=== PATIENT | female | born 1960 | race Caucasian/White ===

== ENCOUNTER 2024-01-21 09:00 | Emergency (ER) | payer MEDICARE, SELFPAY ==
[2024-01-21] VITALS (11 sets, daily range): BP systolic 115–157; BP diastolic 74–89; PULSE 95–112; RESP 15–28; TEMP 36.6; O2SAT 95–99
--- NOTE | ~2024-01-21 | XR_ITS ---
EXAMINATION: XR chest 2V 01/21/2024 10:05 INDICATION: Shortness of breath PROCEDURE: 2 view chest COMPARISON: No prior studies for comparison. FINDINGS: The lungs are clear. The cardiomediastinal silhouette is within normal limits. There are no pleural effusions. There is no pneumothorax suspected. IMPRESSION: 1: NO ACUTE CARDIOPULMONARY DISEASE. Reviewed, dictated and finalized at location B.
--- NOTE | ~2024-01-21 | CT_ITS ---
Clinical Indication: Shortness of breath, abdominal pain CT Scan of the Chest, Abdomen, and Pelvis with Contrast: Technique: Contiguous sections were acquired throughout the chest, abdomen, and pelvis after intraven ous administration of 100 cc of Omnipaque 350. Dose reduction technique was used on this scan by evangelista marks automated exposure control and iterative reconstruction technique. The dose-length product (DL P) was 900.68 mGy-cm. Findings: There is no evidence of any significant mediastinal, hilar or axillary lymphadenopathy. The mediastin al soft tissues appear normal. No pulmonary embolus. No aortic aneurysm or dissection. There is no evidence of pleural or pericardial effusion. The lungs are clear. No pulmonary nodules or infiltrates are noted. There is a heterogeneous enhancing lobulated mass centered in the relative sae hepatis region, exte nding from the superior pancreatic body into the left hepatic lobe. Lesion overall measures approxima tely 7.3 x 6.2 x 7.7 cm in extent. There is additional inferior extension posterior to the pancreatic head versus local adjacent enlarged lymph nodes. There is mild periportal edema. A simple right hepatic lobe cyst is present. Spleen is enlarged, ahmet uring 18.2 cm in length. Small bilateral nonobstructing renal stones are present. There are extra juan a al pelves bilaterally with relative enhancement of the urothelium of the pelvis. No bowel obstruction or bowel wall thickening. There is no evidence to suggest acute appendicitis. Possible urinary bladder wall thickening. There is apparent prominence of the endometrium. Small amou nt of abdominopelvic ascites present. Impression: Large mass centered the relative sae hepatis region, as detailed above, extending from the pancreat ic body to the left hepatic lobe. This is compatible with a neoplastic lesion, however the precise or igin is somewhat unclear with the lesion probably involving both the pancreas and left hepatic lobe. Tissue sampling advised in order to better establish a histologic diagnosis. Probable local metastatic lymph nodes along the inferior aspect of the mass, posterior to the pancrea tic head. Prominent endometrium given patient age. Recommend pelvic ultrasound to better assess for endometrial thickening. Splenomegaly. Small amount of abdominopelvic ascites. Possible urinary bladder wall thickening and relative enhancement of the urothelium of bilateral extr a renal pelves. Correlate for UTI. Reviewed, dictated and finalized at location M. Impression: Large mass centered the relative sae hepatis region, as detailed above, exten ding from the pancreatic body to the left hepatic lobe. This is compatible with a neoplastic lesion, however the precise origin is somewhat unclear with the l esion probably involving both the pancreas and left hepatic lobe. Tissue sampli ng advised in order to better establish a histologic diagnosis. Probable local metastatic lymph nodes along the inferior aspect of the mass, po sterior to the pancreatic head. Prominent endometrium given patient age. Recommend pelvic ultrasound to better assess for endometrial thickening. Splenomegaly. Small amount of abdominopelvic ascites. Possible urinary bladder wall thickening and relative enhancement of the urothe lium of bilateral extra renal pelves. Correlate for UTI.
--- NOTE | 2024-01-21 09:12 | ECG_ITS ---
SEE SCANNED COPY FOR CONFIRMED REPORT MTDD
--- NOTE | 2024-01-21 09:12 | ED.SOB ---
HPI - SOB/Dyspnea General Chief Complaint: Shortness of Breath/Dyspnea <Ryder Muñoz APRN - Last Filed: 01/21/24 11:29> Stated Complaint: short of breath <Ryder Muñoz APRN - Last Filed: 01/21/24 11:29> Time Seen by Provider: 01/21/24 09:04 <Ryder Muñoz APRN - Last Filed: 01/21/24 11:29> Source: patient <Ryder Muñoz APRN - Last Filed: 01/21/24 11:29> Mode of arrival: ambulatory <Ryder Muñoz APRN - Last Filed: 01/21/24 11:29> Limitations: no limitations <Ryder Muñoz APRN - Last Filed: 01/21/24 11:29> History of Present Illness HPI Narrative: Cheyanne is a 64-year-old female patient presenting to the ER today with complaints of shortness of breath and abdominal bloating. She reports her symptoms started yesterday but were worse this morning. She denies any past medical history. She has not seen a medical provider for the last 4-5 years. Does not take any home medications. Feels anxious at this time. States she does have a productive cough at times bringing up some white phlegm. She denies smoking, vaping, marijuana use, or any recreational drug use. <Ryder Muñoz APRN - Last Filed: 01/21/24 11:29> Related Data Home Medications: Home Medications Medication Instructions Recorded Confirmed No Home Medications 01/21/24 01/21/24 <Ryder Muñoz APRN - Last Filed: 01/21/24 11:29> Allergies/Adverse Reactions: Allergies Allergy/AdvReac Type Severity Reaction Status Date / Time No Known Allergies Allergy Verified 01/21/24 09:39 <Ryder Muñoz APRN - Last Filed: 01/21/24 11:29> Review of Systems Review of Systems: Pertinent positives per HPI. Patient denies any fever, chills, rash, headache, visual changes, dizziness, cough, runny nose, sore throat, chest pain, palpitations, nausea, vomiting, diarrhea, constipation, or any urinary issues. <Ryder Muñoz APRN - Last Filed: 01/21/24 11:29> PMFSH Comments At the time of my signature, I reviewed and agree with the nursing past medical, surgical, social, and family history. There is no relevant family history pertinent to the patient complaint. <Ryder Muñoz APRN - Last Filed: 01/21/24 11:29> Exam Narrative: General: Well-developed, well nourished, anxious, mild increased respirations without retractions Head: Normocephalic, atraumatic. Cardio: Regular rate and rhythm, s1 and s2 normal, no murmur appreciated. Resp: Clear to auscultation bilaterally, no rhonchi, rales, wheezing or rubs. Abdomen: Soft, pliable, distended, bowel sounds present in all quadrants, generalized tenderness to palpation, no organomegly, no CVAT tenderness. <Ryder Muñoz APRN - Last Filed: 01/21/24 11:29> Course Course Emergency Course: Portions of this record may have been created with voice recognition software. <Ryder Muñoz APRN - Last Filed: 01/21/24 11:29> COURT DEPUTY/PA Physician Supervision This visit was performed by both a physician and an APC. I performed all aspects of the MDM as documented. <John Erwin MD - Last Filed: 01/21/24 18:20> Vital Signs Vital signs: Vital Signs Temperature 97.9 F 01/21/24 09:04 Pulse Rate 110 H 01/21/24 09:04 Respiratory Rate 28 H 01/21/24 09:04 Blood Pressure 157/89 H 01/21/24 09:04 Pulse Oximetry 99 01/21/24 09:04 Oxygen Delivery Room Air 01/21/24 09:04 Temperature 97.9 F 01/21/24 09:04 Pulse Rate 110 H 01/21/24 12:30 Respiratory Rate 20 01/21/24 12:30 Blood Pressure 118/88 01/21/24 12:30 Pulse Oximetry 97 01/21/24 12:30 Oxygen Delivery Room Air 01/21/24 09:05 Vital signs reviewed <Ryder Muñoz APRN - Last Filed: 05/03/24 11:29> Vital Signs Temperature 97.9 F 01/21/24 09:04 Pulse Rate 110 H 01/21/24 09:04 Respiratory Rate 28 H 01/21/24 09:04 Blood Pressure 157/89 H 01/21/24 09:04 Pulse Oximetry 99
[2024-01-21 09:29] LABS: Hematocrit 37.8 % (37.0-47.0); Hemoglobin 12.6 g/dL (12.0-15.0); Mean Corpuscular HGB Conc 33.3 g/dl (32-36); Mean Corpuscular Hemoglobin 28.8 pg (26-34); Mean Corpuscular Volume 86.5 fl (80-100); Mean Platelet Volume 9.5 fl (7.4-10.4); Platelet Count Result 324 k/mm3 (150-375); Red Blood Count 4.37 M/mm3 (4.2-5.4); Red Cell Distribution Width 14.5 % (11.5-14.5); White Blood Count 30.2 K/mm3 (4.5-10.0)
[2024-01-21 09:36] LABS: Band Neutrophils Percent 2 % (0-6); Lymphocytes Absolute Manual 1.81 K/mm3 (1.1-4.5); Monocytes Percent Manual 1 % (3-9); Neutrophils Absolute Manual 28.08 K/mm3 (1.7-7.2); Neutrophils Percent Manual 91 % (46-73); Total Cells Counted 100
[2024-01-21 09:37] LABS: Platelet Estimate Adequate (Adequate); Schistocytes None Seen
[2024-01-21] MEDS: LORazepam INJ (*CRX) 2 MG/ML VIAL 0.5 MG IV PUSH (09:38)
[2024-01-21 09:40] LABS: INR 1.3; Partial Thromboplastin Time 32.2 Seconds (22.3-36.8); Prothrombin Time 16.9 Seconds (11.1-14.7)
[2024-01-21 09:43] LABS: Alanine Aminotransferase 22 U/L (6-35); Albumin Level 3.8 g/dL (3.5-5.1); Alkaline Phosphatase 120 U/L (38-126); Anion Gap 12 mmol/L (4-12); Aspartate Amino Transferase 32 U/L (14-36); Bilirubin,Total 1.3 mg/dL (0.2-1.3); Blood Urea Nitrogen 8 mg/dL (7-17); Calcium 10.5 mg/dL (8.4-10.2); Carbon Dioxide 17 mmol/L (22-30); Chloride 105 mmol/L (98-107); Estimated CRCL calculation 87 ml/min; Estimated Glomerular Filt Rate > 60; Glucose 126 mg/dL (65-110); Potassium 3.2 mmol/L (3.4-5.0); Sodium 134 mmol/L (137-145)
[2024-01-21 09:51] LABS: NT Pro B Type Natriuretic Pept 563 pg/mL (19.9-100)
[2024-01-21 09:52] LABS: Estimated CRCL calculation 87 ml/min; Estimated Glomerular Filt Rate > 60
[2024-01-21 10:02] LABS: Troponin I < 0.012 ng/mL (0.000-0.034)
[2024-01-21 11:04] LABS: Appearance Urine Clear (Clear); Bilirubin Urine Negative (Negative); Blood Urine 1+ (Negative); Color Urine Yellow (Yellow); Glucose Urine UA Negative (Negative); Ketones Urine Trace mg/dL (Negative); Leukocyte Esterase Ur 1+ LEU/UL (Negative); Nitrate Urine Negative (Negative); Protein Urine 1+ mg/dL (Negative)
[2024-01-21 11:05] LABS: Specific Grav Ur 1.078 (1.001-1.035)
[2024-01-21 11:06] LABS: Add Urine Microscopic? YES
[2024-01-21 11:08] LABS: Bacteria Urine 2+ /hpf; Squamous Epithelial Cell Urine Few /hpf (Few)
== END 2024-01-21 12:35 | disposition short-term general hospital (02) ==
PROVIDERS: Emergency Provider Nurse Practitioner Family; Referring Provider Emergency Medicine
DX: N39.0 Urinary tract infection, site not specified (principal); K86.89 Other specified diseases of pancreas; K76.89 Other specified diseases of liver; R18.0 Malignant ascites; R10.84 Generalized abdominal pain; D72.820 Lymphocytosis (symptomatic); R00.0 Tachycardia, unspecified; R16.1 Splenomegaly, not elsewhere classified
CPT/HCPCS: 36415; 71046; 71275; 74177; 80053; 81001; 83880; 84484; 85025; 85610; 85730; 87077; 87086; 87088; 87186; 93005; 96365; 96374; 99285; J0696; J2060; Q9967

== ENCOUNTER 2024-02-03 14:25 | Outpatient (CLI) | payer MEDICARE, SELFPAY ==
[2024-02-03 14:38] LABS: Kit Draw Collected
== END 2024-02-03 14:26 | disposition home or self-care (01) ==
LOC: ANHLAB 14:26
PROVIDERS: Visit Provider Internal Medicine Hematology & Oncology
DX: C78.7 Secondary malignant neoplasm of liver and intrahepatic bile duct (principal)
CPT/HCPCS: 36415

== ENCOUNTER 2024-02-04 10:08 | Outpatient (CLI) | payer MEDICARE, SELFPAY ==
--- NOTE | ~2024-02-04 | US_ITS ---
EXAMINATION: US paracentesis abd w/image DATE: 02/04/2024 10:52 INDICATION: Ascites. TECHNIQUE: The procedure and its risks and benefits were discussed with the patient. Potential risks discussed included bleeding and infection. The skin was prepped and draped in sterile fashion. 1% lid ocaine was used for local anesthesia. Under ultrasound guidance, a 5 Fr catheter with trochar was adv anced into the ascites in the right lower quadrant. Fluid was aspirated into vacuum bottles. The cath eter was removed, and a dressing was applied. There were no immediate complications. FINDINGS: Ultrasound images demonstrate ascites and the catheter within the fluid. IMPRESSION: 1. Successful ultrasound-guided paracentesis yielding 250 mL of slightly cloudy light yellow fluid. Reviewed, dictated and finalized at location A. IMPRESSION: 1. Successful ultrasound-guided paracentesis yielding 250 mL of slightly cloud y light yellow fluid.
== END 2024-02-04 10:09 | disposition home or self-care (01) ==
PROVIDERS: Visit Provider Internal Medicine Hematology & Oncology
DX: C78.7 Secondary malignant neoplasm of liver and intrahepatic bile duct (principal); R18.0 Malignant ascites
CPT/HCPCS: 49083; 88104; 88108; 88305

== ENCOUNTER 2024-03-08 09:22 | Inpatient (IN) | payer MEDICARE, SELFPAY ==
[2024-03-08] VITALS (29 sets, daily range): BP systolic 74–131; BP diastolic 48–116; PULSE 55–148; RESP 16–33; TEMP 34.3–38.7; O2SAT 92–100; BMI 25.3
--- NOTE | ~2024-03-08 | XR_ITS ---
EXAMINATION: XR retrograde pyelo w/stent LT DATE: 03/21/2024 11:26 INDICATION: Left ureteral stone for retrograde pyelogram and ureteral stent placement TECHNIQUE: 6 fluoroscopic images of the abdomen and pelvis were obtained during procedure performed b boby Hdez. Radiologist was not present for the imaging or procedure. The amount of fluoroscopy t tanika used during this procedure was 2.2 minutes. Total DAP was 0.154 mGym^2 COMPARISON: CT dated FINDINGS: The tiny distal left ureteral stone seen on prior CT is unable to be visualized on the lollypop machine operator CT image s which could be due to it small size or interval passage. Couple phleboliths are seen in the pelvis. The largest stone at the upper pole the left kidney can be seen projecting to the left of the L1 bing tebral body. Subsequent images demonstrate cannulation a wire advanced into the left ureter. Subseque nt contrast injection into the left renal collecting system and placement of a left intraureteral jennifer nt with proximal loop within the contrast opacified left renal pelvis. IMPRESSION: 1. Stone at the upper pole the left kidney. A tiny distal left ureteral stone is not visualized and i s either too small to seen or has passed in the interval. Correlate with procedure note for further d etail. 2. Placement of a left intraureteral stent with proximal tip in the left renal pelvis. Reviewed, dictated and finalized at location B. IMPRESSION: 1. Stone at the upper pole the left kidney. A tiny distal left ureteral stone i s not visualized and is either too small to seen or has passed in the interval. Correlate with procedure note for further detail. 2. Placement of a left intraureteral stent with proximal tip in the left renal pelvis.
--- NOTE | ~2024-03-08 | US_ITS ---
EXAMINATION: US renal BI DATE: 03/10/2024 09:50 INDICATION: Oliguria post stenting TECHNIQUE: Multiple ultrasound grayscale images of the kidneys were obtained. COMPARISON: None. FINDINGS: The right kidney measures 15.2 x 5.5 x 5.0 cm. The left kidney measures 12.2 x 5.6 x 4.7 cm. The kidn eys demonstrate normal echogenicity. Small echogenic stone with associated parenchymal artifact at th e periphery of a 2.1 cm cyst at the lower pole the left kidney. There is no hydronephrosis in either kidney. Curvilinear stent is seen within the mildly dilated extrarenal right renal pelvis. The bladde r is decompressed around a Carty catheter which limits evaluation.. IMPRESSION: 1. Right ureteral stent within a dilated right extrarenal pelvis. No hydronephrosis within the right kidney. 2. Small stone at the periphery of a 2.1 cm cyst at the lower pole the left kidney. Reviewed, dictated and finalized at location A. IMPRESSION: 1. Right ureteral stent within a dilated right extrarenal pelvis. No hydroneph rosis within the right kidney. 2. Small stone at the periphery of a 2.1 cm cyst at the lower pole the left kid guilherme.
--- NOTE | ~2024-03-08 | XR_ITS ---
EXAMINATION: XR fl guide central line place DATE: 03/17/2024 10:49 INDICATION: Port placement. TECHNIQUE: A single intraoperative fluoroscopic view of the chest was obtained. I was not present. Fl uoroscopy exposure time was 27 seconds. COMPARISON: Chest CT 01/21/2024 FINDINGS: There is a right internal jugular port with tip in superior vena cava. IMPRESSION: 1. Right internal jugular port with tip in superior vena cava. Reviewed, dictated and finalized at location A.
--- NOTE | ~2024-03-08 | XR_ITS ---
EXAMINATION: XR retrograde pyelo w/stent BI DATE: 03/08/2024 15:14 INDICATION: Bilateral internal ureteral stent placement TECHNIQUE: Fluoroscopic images from a bilateral internal ureteral stent placement are submitted for dedrick workman. 15 fluoroscopic views. FINDINGS: There were bilateral double-J internal ureteral stent projecting in expected position, with proximal [place] loop at the level of the renal pelvis and distal loop in the pelvis within the bladder lumen. IMPRESSION: 1. Bilateral internal ureteral stent placement. Please refer to real-time procedural findings for d etails. Reviewed, dictated and finalized at location B. IMPRESSION: 1. Bilateral internal ureteral stent placement. Please refer to real-time pro cedural findings for details.
--- NOTE | ~2024-03-08 | CT_ITS ---
EXAMINATION: CT abdomen pelvis w con DATE: 03/08/2024 11:41 INDICATION: Abdominal pain. TECHNIQUE: Computed tomography (CT) of the abdomen and pelvis was performed with 100 mL Omnipaque 350 intravenous contrast. Automated exposure control and iterative reconstruction technique were employe d. The dose-length product was 1075.18 mGy-cm. COMPARISON: CT abdomen and pelvis 01/21/2024 FINDINGS: The visualized portions of the lung bases demonstrate mild atelectasis. No pleural effusion . The heart size is normal. There is a trace pericardial effusion. There is a 9.6 x 6.1 x 9.9 cm mass involving the perihepatic lymph node chain and left hepatic lobe. There is a 17 mm cyst in the liver . The gallbladder is normal in size. There is mild splenomegaly. The spleen, adrenal glands, and righ t kidney are normal. There is mild atrophy of left kidney. There are approximately 6 stones in left k idney measuring up to 6 mm. There is mild left hydronephrosis and hydroureter. There is a 3 mm stone in distal left ureter. There is left-sided urothelial thickening and enhancement. The bladder is deco mpressed. Bladder wall thickening is noted. The left periuterine veins and left ovarian vein are enla rged, consistent with pelvic venous insufficiency. The endometrial complex is thickened to 21 mm. The re is a small volume of ascites. There are no dilated loops of bowel. The appendix is not visualized. There is mild thoracic spondylosis and severe lower lumbar spondylosis. IMPRESSION: 1. 3 mm stone in distal left ureter with mild left hydronephrosis and hydroureter. Cystitis and left- sided pyelitis. 2. Large mass involving the perihepatic lymph node chain and left hepatic lobe, consistent with metas tatic disease. 3. Small volume of ascites. 4. Thickened endometrial complex suspicious for endometrial carcinoma. 5. Mild splenomegaly. Reviewed, dictated and finalized at location A. IMPRESSION: 1. 3 mm stone in distal left ureter with mild left hydronephrosis and hydrouret er. Cystitis and left-sided pyelitis. 2. Large mass involving the perihepatic lymph node chain and left hepatic lobe, consistent with metastatic disease. 3. Small volume of ascites. 4. Thickened endometrial complex suspicious for endometrial carcinoma. 5. Mild splenomegaly.
--- NOTE | ~2024-03-08 | CT_ITS ---
EXAMINATION: CTA BRAIN/CAROTID DATE: 03/22/2024 11:39 INDICATION: Increased confusion TECHNIQUE: Computed tomographic angiography (CTA) of the head and neck was performed with 100 mL Omni paque-350 intravenous contrast. Multiplanar reconstructions and maximum intensity projection 3D-recon structions of the carotid arteries and of the intracranial arteries were created by the technologist on a separate workstation. Precontrast CT of the head was also obtained. Automated exposure control and iterative reconstruction technique were employed.The dose-length product was 1450.00 mGy-cm. COMPARISON: CT dated 03/21/2024 FINDINGS: Carotid arteries: There is small amount of atherosclerotic plaque with 0% stenosis of the right and left carotid bulbs relative to normal distal artery lumen diameter (NASCET criteria). There are some groundglass opacit y and smooth septal line thickening at the bilateral apices, right greater than left. Right internal jugular central venous port catheter with distal tip at the caudal superior vena cava on the plating equipment tender to pogram. Cervical soft tissues are unremarkable. Consistent with mild pulmonary edema. Mild to moderat e lower cervical predominant spondylosis. Head: Decreased soft tissue swelling associated with a right parietal scalp hematoma related to recent fall . No fracture. No acute intracranial hemorrhage, acute infarction or abnormal extra axial fluid colle ction. Ventricles are normal and symmetric. No mass/mass effect. No abnormally enhancing brain lesion s on the postcontrast imaging. The orbits, paranasal sinuses and mastoid air cells are normal. Intracranial arteries The left vertebral artery is mildly dominant. Atherosclerotic calcific lesion without hemodynamic sig nificant stenosis at the bilateral carotid siphons. There is no hemodynamically significant stenosis in the vertebral, basilar and internal carotid arteries. There are no aneurysms identified. Both A1 and P1 segments are patent. There is also a patent anterior communicating artery. Cerebral arterial a rborization appears symmetric. IMPRESSION: 1. Small amount of atherosclerotic plaque with 0% stenosis of the right and left carotid bulbs relati ve to normal distal artery lumen diameter (NASCET criteria). 2. Small right parietal scalp hematoma. No fracture or acute intracranial process. 3. Unremarkable cerebral CT angiogram with no hemodynamic significant stenosis, thrombosis or aneurys m. 4. Mild groundglass opacity and smooth septal line thickening at the bilateral apices suggestive of m ild pulmonary edema. Reviewed, dictated and finalized at location B. IMPRESSION: 1. Small amount of atherosclerotic plaque with 0% stenosis of the right and lef t carotid bulbs relative to normal distal artery lumen diameter (NASCET criteri a). 2. Small right parietal scalp hematoma. No fracture or acute intracranial proce ss. 3. Unremarkable cerebral CT angiogram with no hemodynamic significant stenosis, thrombosis or aneurysm. 4. Mild groundglass opacity and smooth septal line thickening at the bilateral apices suggestive of mild pulmonary edema.
--- NOTE | ~2024-03-08 | CT_ITS ---
EXAMINATION: CT brain wo con DATE: 03/08/2024 11:33 INDICATION: Confusion. TECHNIQUE: Computed tomography (CT) of the head was performed without intravenous contrast. The mA wa s adjusted according to patient size. Iterative reconstruction technique was employed. The dose-lengt h product was 1210.67 mGy-cm. COMPARISON: None FINDINGS: There are scattered areas of low attenuation in the cerebral white matter, which is within normal limits for the patient's age. There is no intracranial hemorrhage, acute infarction, or abnorm al intracranial mass lesion. The ventricles are normal in size. There is mild mucosal thickening in t he paranasal sinuses. The orbits are normal. The mastoid air cells are normal. IMPRESSION: 1. Normal aging brain. Reviewed, dictated and finalized at location A. IMPRESSION: 1. Normal aging brain.
--- NOTE | ~2024-03-08 | CT_ITS ---
EXAMINATION: CT chest abdomen pelvis wo con DATE: 03/18/2024 14:53 INDICATION: Leukocytosis. TECHNIQUE: Computed tomography (CT) of the chest, abdomen, and pelvis was performed without intraveno us contrast. Automated exposure control and iterative reconstruction technique were employed. The dos e-length product was 1082.05 mGy-cm. COMPARISON: CT abdomen and pelvis 03/08/2024 FINDINGS: CHEST CT: The lungs demonstrate mild atelectasis. There are small pleural effusions. The heart size is normal. There is a small pericardial effusion. There is a right internal jugular port with tip in superior ve na cava. There is mild thoracic spondylosis. ABDOMEN/PELVIS CT: There is a 10.9 x 9.9 cm mass in the periportal region with involvement of left hepatic lobe. There i s mild splenomegaly. There is an 18 mm cyst in the liver. The gallbladder is normal in size. The panc reas and adrenal glands are normal. There are 3 mm and 1 mm stones in right kidney. There is an 18 mm cyst in left kidney. There are at least 5 stones in left kidney measuring up to 5 mm. There is mild left hydronephrosis and hydroureter. There is gas in the left ureter. There is a 2 mm stone in distal left ureter. The bladder is decompressed by a Carty catheter. There is diverticulosis of the colon w ithout evidence of diverticulitis. The appendix is normal. There is a small volume of ascites. Body w all edema is noted. There is severe lumbar spondylosis. IMPRESSION: 1. 2 mm stone in distal left ureter with mild left hydronephrosis and hydroureter. Gas in the left ur eter may be from the recent ureteral stent removal. 2. Small pleural effusions. 3. Small pericardial effusion. 4. Mass in the periportal region with involvement of left hepatic lobe, consistent with metastatic di sease. 5. Small volume of ascites. 6. Mild splenomegaly. Reviewed, dictated and finalized at location E. IMPRESSION: 1. 2 mm stone in distal left ureter with mild left hydronephrosis and hydrouret er. Gas in the left ureter may be from the recent ureteral stent removal. 2. Small pleural effusions. 3. Small pericardial effusion. 4. Mass in the periportal region with involvement of left hepatic lobe, consist ent with metastatic disease. 5. Small volume of ascites. 6. Mild splenomegaly.
--- NOTE | ~2024-03-08 | CT_ITS ---
EXAMINATION: CT biopsy liver DATE: 03/09/2024 12:19 INDICATION: Abdominal lymphadenopathy. TECHNIQUE: The procedure including the risks, benefits, and alternatives was discussed with the patie nt. Risks discussed included bleeding and infection. The patient verbalized understanding of the risk s and agreed to proceed. The skin overlying the liver was prepped and draped in usual sterile fashio n. Anesthetic was administered with 1% lidocaine subcutaneously. A 19 gauge outer needle was advanc ed under CT guidance through the liver into gastrohepatic lymphadenopathy. A 20 gauge core biopsy nee dle was then used to obtain 4 core biopsy specimens. The mA was adjusted according to patient size. I terative reconstruction technique was employed. The dose-length product was 114.25 mGy-cm. The needle was removed and the entry site was cleaned and dressed. There were no immediate complications. FINDINGS: CT images demonstrate the outer needle tip adjacent to a 6.4 x 5.2 cm gastrohepatic amrik m ass. IMPRESSION: 1. CT-guided core needle biopsy of gastrohepatic lymphadenopathy. Reviewed, dictated and finalized at location A.
--- NOTE | ~2024-03-08 | XR_ITS ---
EXAMINATION: XR chest port-a-cath/central DATE: 03/17/2024 11:20 INDICATION: Port placement. TECHNIQUE: A single frontal view of the chest was obtained. COMPARISON: Chest 2 views 01/21/2024 FINDINGS: The lung volumes are small. There is a diffuse interstitial pattern in the lungs. There are airspace opacities in the perihilar regions and left lower lung zone. No pleural effusion or pneumot horax. The heart size is normal. There is a right internal jugular port with tip in superior vena cav a. IMPRESSION: 1. Port tip in superior vena cava. 2. Small lung volumes with diffuse lung disease, likely a combination of atelectasis and mild pulmona ry edema. Reviewed, dictated and finalized at location A. IMPRESSION: 1. Port tip in superior vena cava. 2. Small lung volumes with diffuse lung disease, likely a combination of atelec tasis and mild pulmonary edema.
--- NOTE | ~2024-03-08 | CT_ITS ---
Non-contrast Head CT History: Status post fall COMPARISON: 03/08/2024 Technique: Axial non-contrast imaging of the brain was performed. Dose reduction technique was used on this scan by utilizing automated exposure control and iterative reconstruction technique. The dose -length product (DLP) was 605.33 mGy-cm. Findings: There is no evidence of intracranial hemorrhage, mass lesion, or acute infarct. Brain par enchyma appears normal. The ventricles and subarachnoid spaces are normal in size. The calvarium ap pears normal. The visualized paranasal sinuses and mastoid air cells are clear. There is soft tissue swelling of the right parietal scalp. Impression: No intracranial abnormality seen. Soft tissue swelling at the right parietal scalp. Reviewed, dictated and finalized at [facility]. Impression: No intracranial abnormality seen. Soft tissue swelling at the right parietal scalp.
--- NOTE | ~2024-03-08 | XR_ITS ---
XR hip RT 2V w AP pelvis Ordering provider: Iban Faulkner MD History: . witnessed fall, right hip pain post fall . Comparison: None. FINDINGS: BONES: No acute fracture or dislocation. HIP JOINT SPACES: Bilateral mild to moderate osteoarthritic changes. SACROILIAC JOINT SPACES/LUMBAR SPINE: The sacroiliac joint spaces are normal. Mild degenerative [place] es of the visualized lower lumbar spine. PUBIC SYMPHYSIS: Normal. SOFT TISSUES: Normal. IMPRESSION: No acute osseous abnormality pelvis and right hip. Reviewed, dictated and finalized at location A.
--- NOTE | ~2024-03-08 | XR_ITS ---
EXAM: XR abdomen/kub 1V DATE: 03/16/2024 19:42 HISTORY: constipation . COMPARISON: 03/12/2024. FINDINGS: Bilateral nephroureteral stents in good position. Carty/temperature probe. 5 mm and 4 mm c alcifications project over the left upper pole. Multiple pelvic phleboliths. Normal bowel gas pattern . Lumbar degenerative disc disease. IMPRESSION: Stable nephroureteral stents and left nephrolithiasis. Reviewed, dictated and finalized at location K.
--- NOTE | ~2024-03-08 | XR_ITS ---
EXAMINATION: XR abdomen/kub 1V DATE: 03/12/2024 12:56 INDICATION: Severe abdominal pain TECHNIQUE: A supine view of the abdomen on 2 radiographs was obtained. COMPARISON: CT dated 03/08/2024 FINDINGS: Bilateral internal ureteral stents with loops formed over the expected locations of the bladder and b ilateral renal pelvises. Temperature probe likely a Carty catheter also projects over the bladder. 5 mm and 4 mm stones projects over the upper pole of the left kidney. Multiple phleboliths in the pelvi s. No stones seen along the course of the ureteral stents. No dilated loops of gas filled bowel to dixon ggest obstruction. Lung bases are clear. Heart size is normal. IMPRESSION: 1. Bilateral internal ureteral stents in expected position with 5 mm at 4 mm stones projecting over t he upper pole of the left kidney. Reviewed, dictated and finalized at location A. IMPRESSION: 1. Bilateral internal ureteral stents in expected position with 5 mm at [address] ones projecting over the upper pole of the left kidney.
--- NOTE | 2024-03-08 09:44 | ED.ABDPAIN ---
HPI - Abdominal Pain General Chief Complaint: Abdominal Pain Stated Complaint: abd pain Time Seen by Provider: 03/08/24 09:23 History of Present Illness HPI narrative: 64-year-old female presents to the emergency room from outpatient CT where she was scheduled to have a diagnostic biopsy, for evaluation of acute onset of confusion. Patient was evaluated in the emergency room 4 weeks ago for abdominal pain, was found to have a large mass in the sae hepatis region that extended into the pancreatic body left hepatic lobe per CT scan. Patient has had 1 biopsy since to further evaluate the mass. according to spouse, patient awoke this morning confused and acting scared . Spouse states patient took 1 hydrocodone pill this morning for abdominal pain. patient unable to answer questions appropriately at this time. Related Data Home Medications Medication Instructions Recorded Confirmed No Home Medications 01/21/24 01/21/24 Allergies Allergy/AdvReac Type Severity Reaction Status Date / Time No Known Allergies Allergy Verified 03/08/24 09:39 Review of Systems Review of Systems: ROS unremarkable except for noted in HPI Exam Narrative: GENERAL: ill-appearing, disheveled HEAD: Normocephalic, atraumatic. EYES: Conjunctivae normal, PERRLA and EOMI. NECK: Supple. No meningeal signs. CHEST: Clear to auscultation. No respiratory distress. No wheezes rales or rhonchi. No tenderness. HEART: Regular rate and rhythm. No murmur heard. Normal peripheral pulses. ABDOMEN: Soft, diffusely tender, nondistended : Normal external male/female exam. BACK: No CVA tenderness; No cervical/thoracic/lumbar tenderness, step-offs, bony abnormality; FROM EXTREMITIES: Normal range of motion. No edema. No clubbing or cyanosis SKIN: Warm, dry, no rash. No noted wounds NEURO: No focal deficits. Alert and oriented x 1. MAEW. CN's II-XI intact bilaterally PSYCH: confused, fearful Course Course Emergency Course: 1245: discussed case with Dr. Gallo. He is in agreement with patient admission. Will evaluate patient for possible ureteral stenting. Vital Signs Vital signs: Vital Signs Temperature 37.4 C 03/08/24 09:33 Pulse Rate 122 H 03/08/24 09:33 Respiratory Rate 20 03/08/24 09:33 Blood Pressure 131/92 H 03/08/24 09:33 Pulse Oximetry 100 03/08/24 09:33 Oxygen Delivery Room Air 03/08/24 09:33 Temperature 37.4 C 03/08/24 09:33 Pulse Rate 122 H 03/08/24 09:33 Respiratory Rate 20 03/08/24 09:33 Blood Pressure 131/92 H 03/08/24 09:33 Pulse Oximetry 100 03/08/24 09:33 Oxygen Delivery Room Air 03/08/24 09:33 MDM - Abdominal Pain Lab Data 03/08/24 09:52 03/08/24 09:52 Labs: Lab Results 03/08/24 03/08/24 03/08/24 Range/Units 09:52 10:06 10:30 WBC 31.6 H (4.5-10.0) K/mm3 RBC 4.33 (4.2-5.4) M/mm3 Hgb 12.5 (12.0-15.0) g/dL Hct 38.1 (37.0-47.0) % MCV 88.0 (80-100) fl MCH 28.9 (26-34) pg MCHC 32.8 (32-36) g/dl RDW 16.5 H (11.5-14.5) % Plt Count 250 (150-375) k/mm3 MPV 9.7 (7.4-10.4) fl Immature Gran % (Auto) 2.7 H (0-0.5) % Neut % (Auto) 90.0 H (45.5-73.1) % Lymph % (Auto) 3.4 L (18.3-44.2) % [place] % (Auto) 3.7 (2.6-8.5) % Eos % (Auto) 0.0 (0-4.4) % Baso % (Auto) 0.2 (0.2-1.2) % Lymph # (Auto) 1.06 (0.9-3.2) K/mm3 [place] # (Auto) 1.2 H (0.1-0.6) K/mm3 Eos # (Auto) 0.0 (0-0.3) K/mm3 Baso # (Auto) 0.1 (0.0-0.1) K/mm3 Abs Immat Gran (auto) 0.85 H (0.00-0.031) K/mm3 Absolute Neuts (auto) 28.4 H (1.3-6.7) K/mm3 Absolute Nucleated RBC 0.000 (0.0-0.012) K/mm3 Nucleated RBC % 0.0 (0.0-0.2) % PT 18.8 H (11.1-14.7) Seconds INR 1.5 APTT 34.9 (22.3-36.8) Seconds Sodium 133 L (137-145) mmol/L Potassium 3.2 L (3.4-5.0) mmol/L Chloride 104 (98-107) mmol/L Carbon Dioxide 15 L (22-30) mmol/L An
[2024-03-08 10:00] LABS: Basophils Absolute Auto 0.1 K/mm3 (0.0-0.1); Basophils Percent Auto 0.2 % (0.2-1.2); Hematocrit 38.1 % (37.0-47.0); Hemoglobin 12.5 g/dL (12.0-15.0); Immature Granulocyte Absolute 0.85 K/mm3 (0.00-0.031); Immature Granulocyte Percent A 2.7 % (0-0.5); Lymphocytes Absolute Auto 1.06 K/mm3 (0.9-3.2); Lymphocytes Percent Auto 3.4 % (18.3-44.2); Mean Corpuscular HGB Conc 32.8 g/dl (32-36); Mean Corpuscular Hemoglobin 28.9 pg (26-34); Mean Platelet Volume 9.7 fl (7.4-10.4); Monocytes Absolute Auto 1.2 K/mm3 (0.1-0.6); Monocytes Percent Auto 3.7 % (2.6-8.5); Neutrophils Absolute Auto 28.4 K/mm3 (1.3-6.7); Platelet Count Result 250 k/mm3 (150-375); Red Blood Count 4.33 M/mm3 (4.2-5.4); Red Cell Distribution Width 16.5 % (11.5-14.5); White Blood Count 31.6 K/mm3 (4.5-10.0)
--- NOTE | 2024-03-08 10:11 | PC.NURSE ---
patient uncooperative and not following commands. patient becomes combative when touched. provider gave order for ativan to help calm patient.
[2024-03-08] MEDS: LORazepam INJ (*CRX) 2 MG/ML VIAL 1 MG IV PUSH (10:12)
[2024-03-08 10:13] LABS: INR 1.5; Prothrombin Time 18.8 Seconds (11.1-14.7)
[2024-03-08 10:14] LABS: Partial Thromboplastin Time 34.9 Seconds (22.3-36.8)
[2024-03-08 10:23] LABS: NT Pro B Type Natriuretic Pept 968 pg/mL (19.9-100)
[2024-03-08 10:27] LABS: Alanine Aminotransferase 23 U/L (6-35); Albumin Level 3.3 g/dL (3.5-5.1); Alkaline Phosphatase 198 U/L (38-126); Anion Gap 14 mmol/L (4-12); Aspartate Amino Transferase 40 U/L (14-36); Bilirubin,Total 1.3 mg/dL (0.2-1.3); Blood Urea Nitrogen 12 mg/dL (7-17); Calcium 10.3 mg/dL (8.4-10.2); Carbon Dioxide 15 mmol/L (22-30); Chloride 104 mmol/L (98-107); Estimated CRCL calculation 74 ml/min; Estimated Glomerular Filt Rate > 60; Glucose 137 mg/dL (65-110); Lipase 80 U/L (23-300); Potassium 3.2 mmol/L (3.4-5.0); Sodium 133 mmol/L (137-145)
[2024-03-08] MEDS: SODIUM CHLORIDE 0.9% IV 1,000 ML 999 ML IV CONT ×2 (10:34→12:20)
[2024-03-08 10:43] LABS: Lactic Acid Reflex 4.7 mmol/L (0.7-2.0)
[2024-03-08 10:45] LABS: Ammonia < 9 umol/L (9-30)
[2024-03-08] MEDS: LORazepam INJ (*CRX) 2 MG/ML VIAL 0.5 MG IV PUSH (11:07)
[2024-03-08 11:21] LABS: Amphetamine Screen Urine Negative (Negative); Barbiturate Screen Urine Negative (Negative); Benzodiazepines Screen Urine Negative (Negative); Cannabinoid Screen Urine Negative (Negative); Cocaine Screen Urine Negative (Negative); Methadone Screen Urine Negative (Negative); Opiate Screen Urine Positive (Negative); Phencyclidine Screen Urine Negative (Negative)
[2024-03-08 11:22] LABS: Appearance Urine Clear (Clear); Bacteria Urine None Seen /hpf; Bilirubin Urine Negative (Negative); Blood Urine Negative (Negative); Color Urine Dark Yellow (Yellow); Glucose Urine UA Negative (Negative); Ketones Urine 1+ mg/dL (Negative); Leukocyte Esterase Ur Trace LEU/UL (Negative); Need Manual Microscopic Reviewed; Nitrate Urine Negative (Negative); Protein Urine 1+ mg/dL (Negative); RBC Urine 0-2 /hpf (0-2); Specific Grav Ur 1.018 (1.001-1.035); Squamous Epithelial Cell Urine None Seen /hpf (Few)
[2024-03-08 11:25] LABS: Add Urine Microscopic? YES
[2024-03-08 13:09] LABS: Reflex Lactic Acid Yes or No Add Lactic
--- NOTE | 2024-03-08 13:19 | WPDURCON ---
Assessment and Plan Assessment and plan (1) Sepsis: Code(s): A41.9 - Sepsis, unspecified organism Status: Acute Assessment and Plan: Met criteria for sepsis on admission with tachycardia, leukocytosis, lactic acidosis. Remains afebrile. Continue IV fluid resuscitation, empiric antibiotics, and management per primary team. (2) Left ureteral stone: Code(s): N20.1 - Calculus of ureter Status: Acute Assessment and Plan: 3 mm distal left ureteral stone with mild left hydroureteronephrosis. Will proceed with cystoscopy and left ureteral stent placement this afternoon by Dr. Ivy. Discussed risks versus benefits of procedure and they agree to proceed. Understands temporary nature of stent. (3) Hydronephrosis, left: Code(s): N13.30 - Unspecified hydronephrosis Status: Acute Assessment and Plan: Planning for stent placement as above (4) Abnormal urinalysis: Code(s): R82.90 - Unspecified abnormal findings in urine Status: Acute Assessment and Plan: UA abnormal, concerning possible infection. Continue empiric antibiotics while awaiting urine culture results. 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 She was scheduled for biopsy today for further evaluation but this has been deferred. She has been established with oncology. Management per primary team Urology Consult Note HPI Date Seen: 03/08/24 Primary Care Provider: Hao Perry MD Consult Narrative Narrative: Cheyanne Arenas is a 64 year old female with a history of recently discovered liver and pancreatic lesion who is being seen in consultation for distal left ureteral stone. The patient was scheduled for a biopsy of newly found lesions this morning, however her reports that when she woke up this morning, she was acting more confused and having difficulty with ambulation. She was complaining of diffuse abdominal pain. On presentation to the emergency department, she was septic evident by tachycardia, leukocytosis, and lactic acidosis. Creatinine within normal limits at 0.7. UA with trace leukocytes and 11-[address] of the abdomen/pelvis was completed which showed a 3 mm stone in the distal left ureter with mild left hydronephrosis and hydroureter as well as findings of cystitis and left-sided pyelitis. At the time of my evaluation, patient is not able to provide much history due to confusion and pain, however her reports that she had been complaining of abdominal pain prior to presentation. She did not complain of flank pain or back pain. Has not noted any dysuria or hematuria. Reports no prior history of kidney stones or other urologic issues. We discussed options for management including cystoscopy with left ureteral stent placement versus trial of passage and repeat imaging. They have decided to proceed with cystoscopy and left ureteral stent placement this afternoon with Dr. Ivy. Case has been reviewed and discussed with Dr. Ivy Review of Systems Review of Systems: ROS unobtainable: Yes unobtainable due to medical condition Meds Home Medications and Allergies Home Medications Medication Instructions Recorded Confirmed Type No Home Medications 01/21/24 01/21/24 History Allergies Allergy/AdvReac Type Severity Reaction Status Date / Time No Known Allergies Allergy Verified 03/08/24 09:39 Vital Signs Vital Signs - 24 hr 03/08/24 09:33 03/08/24 12:19 Temperature 99.3 F Pulse Rate 122 H 112 H Respiratory Rate 20 16 Blood Pressure 131/92 H 110/74 Pulse Oximetry 100 95 Oxygen Delivery Room Air Exam Narrative: General: Awake, alert, slightly c
[2024-03-08 13:55] LABS: Lactic Acid 2.2 mmol/L (0.7-2.0)
--- NOTE | 2024-03-08 13:58 | WPDANESEPPF ---
Anes - Initial Pre Proc Eval Procedure: Operation Date: 03/08/24 15:00 Proposed Procedures p Cystoscopy, Left Stent Placement - Ike Ivy MD Date/Time: 03/08/24 13:58 Pre Op Diagnosis: ABDOMINAL PAIN Patient Data Age: 64 Gender: F Height: 1.78 m Weight: 76.8 kg Last Vital Signs Temp 37.4 C 03/08/24 09:33 Pulse 113 H 03/08/24 13:31 Resp 18 03/08/24 13:31 BP 112/81 03/08/24 13:31 Pulse Ox 100 03/08/24 13:31 O2 Del Method Room Air 03/08/24 09:33 Allergies Allergy/AdvReac Type Severity Reaction Status Date / Time No Known Allergies Allergy Verified 03/08/24 14:25 Home Medications Medication Instructions Recorded Confirmed Type No Home Medications 01/21/24 01/21/24 History Laboratory Tests 03/08/24 03/08/24 03/08/24 09:52 10:06 10:30 WBC 31.6 H K/mm3 (4.5-10.0) RBC 4.33 M/mm3 (4.2-5.4) Hgb 12.5 g/dL (12.0-15.0) Hct 38.1 % (37.0-47.0) MCV 88.0 fl (80-100) MCH 28.9 pg (26-34) MCHC 32.8 g/dl (32-36) RDW 16.5 H % (11.5-14.5) Plt Count 250 k/mm3 (150-375) MPV 9.7 fl (7.4-10.4) Immature Gran % (Auto) 2.7 H % (0-0.5) Neut % (Auto) 90.0 H % (45.5-73.1) Lymph % (Auto) 3.4 L % (18.3-44.2) [place] % (Auto) 3.7 % (2.6-8.5) Eos % (Auto) 0.0 % (0-4.4) Baso % (Auto) 0.2 % (0.2-1.2) Lymph # (Auto) 1.06 K/mm3 (0.9-3.2) [place] # (Auto) 1.2 H K/mm3 (0.1-0.6) Eos # (Auto) 0.0 K/mm3 (0-0.3) Baso # (Auto) 0.1 K/mm3 (0.0-0.1) Abs Immat Gran (auto) 0.85 H K/mm3 (0.00-0.031) Absolute Neuts (auto) 28.4 H K/mm3 (1.3-6.7) Absolute Nucleated RBC 0.000 K/mm3 (0.0-0.012) Nucleated RBC % 0.0 % (0.0-0.2) PT 18.8 H Seconds (11.1-14.7) INR 1.5 APTT 34.9 Seconds (22.3-36.8) Sodium 133 L mmol/L (137-145) Potassium 3.2 L mmol/L (3.4-5.0) Chloride 104 mmol/L (98-107) Carbon Dioxide 15 L mmol/L (22-30) Anion Gap 14 H mmol/L (4-12) BUN 12 mg/dL (7-17) Creatinine 0.70 mg/dL (0.7-1.0) Estim Creat Clear Calc 74 ml/min Estimated GFR > 60 (59 - ) Glucose 137 H mg/dL (65-110) Lactic Acid 4.7 H* mmol/L (0.7-2.0) Calcium 10.3 H mg/dL (8.4-10.2) Total Bilirubin 1.3 mg/dL (0.2-1.3) AST 40 H U/L (14-36) ALT 23 U/L (6-35) Alkaline Phosphatase 198 H U/L (38-126) Ammonia < 9 L umol/L (9-30) NT-Pro-B Natriuret Pep 968 H pg/mL (19.9-100) Total Protein 7.0 g/dL (6.3-8.2) Albumin 3.3 L g/dL (3.5-5.1) Lipase 80 U/L (23-300) Urine Color Urine Appearance Urine pH Ur Specific [place] Urine Protein Urine Glucose (UA) Urine Ketones Ur Blood (Man) Urine Nitrate Urine Bilirubin Urine Urobilinogen Add Ur Microanalysis Leukocyte Esterase Rfl Urine RBC Urine WBC Ur Squamous Epith Cells Urine Bacteria Urine Casts Urine Opiates Screen Urine Methadone Screen Ur Barbiturates Screen Ur Phencyclidine Scrn Ur Amphetamine Screen U Benzodiazepines Scrn Urine Cocaine Screen U Cannabinoids Screen 03/08/24 03/08/24 10:58 13:38 WBC RBC Hgb Hct MCV MCH MCHC RDW Plt Count MPV Immature Gran % (Auto) Neut % (Auto) Lymph % (Auto) [place] % (Auto)
[2024-03-08] MEDS: LACTATED RINGERS 1,000 ML 30 ML IV CONT ×2 (14:15→15:45)
--- NOTE | 2024-03-08 14:40 | WPDHPUPDATE1 ---
History and Physical Update Update Date/Time: 03/08/24 14:40 History and Physical has been reviewed, including an updated exam of the patient. There are NO changes in the patient's condition. Risks, benefits, and alternatives have been discussed and questions answered. Patient agrees to proceed with procedure.
[2024-03-08] MEDS: LIDOCAINE HCL 2% GEL UROJET 10 ML PKG MUCOUS MEM (15:06)
--- NOTE | 2024-03-08 15:11 | W.PM.PROC2 ---
Procedure Note - Detailed Date of Procedure 03/08/24 Pre-op Diagnosis Left ureteral stone Sepsis Post-op Diagnosis Other (Bilateral hydronephrosis, left ureteral stone, sepsis) Procedure Performed Cystoscopy, bilateral retrograde pyelogram, bilateral ureteral stent insertion, Carty catheter insertion Surgeon Ike Ivy MD Anesthesia MAC Findings -botanical technical officer film showing retained contrast in bilateral kidneys. There was moderate/severe right hydronephrosis and left mild/moderate hydronephrosis -placement of bilateral 6 [place] double-J stent Description of Procedure Informed consent was obtained the patient's . She was found to be septic in the emergency department with a left distal ureteral stone. Patient is given preoperative IV antibiotics in the emergency room. She was taken the operating room given sedation. The patient was prepped and draped normal sterile fashion in the dorsal lithotomy position. A botanical technical officer film was performed and this showed moderate/severe right hydronephrosis and left mild/moderate hydronephrosis. We elected to place bilateral ureteral stents to fully drain her collecting system. A retrograde pyelogram was performed on the left side showing filling defect in the left distal ureter and continued mild/moderate hydronephrosis. We placed a wire and then over the wire a 6 F variable length stent was placed with a curl in the renal pelvis and curl in the bladder. We then cannulated the right distal ureter and retrograde pyelogram performed. There was a delicate distal ureter and then moderate/severe right hydronephrosis. Over wire 6 F variable length stent was placed with a curl in renal pelvis and a curl in bladder. Lidocaine was instilled in bladder and a 16 F Carty catheter was inserted to drain the bladder. Patient was awakened and taken recovery room stable condition Pathology None sent Complications No immediate complications Condition Critical Disposition PACU
--- NOTE | 2024-03-08 16:03 | SUR.PHASEI ---
[id number]- Call to Dr. Ivy and received orders for patient to go to ICU.
[2024-03-08] MEDS: fentaNYL CITRATE INJ (*CRX) 100 MCG/2 ML VIAL 25 MCG IV PUSH ×2 (16:15→16:18)
--- NOTE | 2024-03-08 16:31 | PC.NURSE ---
Patient received from PACU staff DORIS Lipscomb with appropriate documentation. Patient able to answer questions appropriately during initial assessment however her speech was garbled and she still appeared to be drowsy from anesthesia. Systolic BPs remained in high 80s, registered respiratory technician notified and new orders received (see orders) after initial assessment Cheyanne became increasingly more agitated stating that she needed to urinate. Her discomfort was inconsolable and she began writhing around in bed pulling at her leads and IVs. Carty catheter patency checked and appeared to be draining appropriately however hospitalist recommended exchanging catheter to ensure proper drainage and accurate temperature monitoring. One time dose of toradol given (see MAR) and patient then became more relaxed and appeared comfortable.
--- NOTE | 2024-03-08 16:32 | PC.NURSE ---
This patient, Cheyanne Arenas, was admitted to Intensive Care Unit-8. Patient/family oriented to hospital policies and general routines including ID bracelet, bed and alarms, visiting hours, pain management, procedures, bathroom and other care routines, personal items, smoking policy, room service/diet, and visiting hours. Information on how to activate the Rapid Response Team has been discussed. Patient/Family are encouraged to report perceived risks to care and to ask questions if they do not understand what they are told or what they should do.
[2024-03-08] MEDS: SODIUM CHLORIDE 0.9% IV 1,000 ML 125 ML IV CONT ×2 (17:00→23:25)
[2024-03-08] MEDS: LACTATED RINGERS 1,000 ML 999 ML IV CONT ×2 (17:00→22:09)
--- NOTE | 2024-03-08 17:10 | PM.IMHP ---
H&P: HPI History of Present Illness Date/Time: 03/08/24 17:10 Chief Complaint: Abdominal Pain Narrative: 64 y/o F presents here with abdominal pain with PMH of abdominal mass extending from pancreatic body to the liver. The patient presents here from home for further evaluation of AMS and abdominal pain. HPI obtained through chart review, patient unable to contribute to history due to her current condition. Attempted to contact family via phone with no response. Per family at bedside in the ED, the patient woke this morning and was not acting like her usual self. They reported that she was not answering questions or cooperating. She is A/Ox4 at baseline. She describes the abdominal pain as diffuse. She was unable to undergo a planned biopsy today due to the pain. She had a CT performed on 01/21/24 that showed a large mass centered the relative sae hepatis region, as detailed above, extending from the pancreatic body to the left hepatic lobe. CT of the abd/pelvis repeated today which redemonstrated the large mass but also thickened endometrial complex suspicious for endometrial carcinoma, as well as a 3 mm stone in the distal left ureter with mild hydronephrosis and hydroureter as well as pyelitis. Currently endorsing urinary urgency despite catheter in place. Initial VS at presentation: 99.3? F, HR 122, RR 20, 131/92, and 100% on RA. ED workup showed: WBC 31.6, no anemia, sodium 133, potassium 3.2, creatinine 0.7 and GFR >60, lactic 4.7, ammonia <9, BNP 968. UA suspicious for UTI. UDS positive for opiates. Head CT showed a normal aging brain. CT abd/pelvis showed the hepatic/pancreatic mass, 3 mm stone in the distal left ureter with mild left hydronephrosis and hydroureter, cystitis and left-sided by light S, small volume ascites, thickened endometrial complex suspicious for endometrial carcinoma, and mild splenomegaly. Review of Systems Review of Systems: All systems reviewed & are unremarkable except as noted in HPI and below [facility] Past Medical History Medical History (Updated 03/08/24 @ 22:21 by Merline Martin, ASSET COORDINATOR) Abdominal mass large mass involving the perihepatic lymph node chain and left hepatic lobe, first seen on CT on 01/21/24 Social History Social History Spiritual care concerns: No Meds Home Medications and Allergies Allergies Allergy/AdvReac Type Severity Reaction Status Date / Time No Known Allergies Allergy Verified 03/08/24 14:25 Vital Signs Vital Signs - 24 hr 03/08/24 09:33 03/08/24 12:19 03/08/24 13:31 Temperature 99.3 F Pulse Rate 122 H 112 H 113 H Respiratory Rate 20 16 18 Blood Pressure 131/92 H 110/74 112/81 Pulse Oximetry 100 95 100 Oxygen Delivery Room Air 03/08/24 14:12 Temperature 98.4 F Pulse Rate 140 H Respiratory Rate 18 Blood Pressure 131/116 H Pulse Oximetry 100 Oxygen Delivery Room Air Exam Const: General: uncomfortable Other: , female, ill-appearing, no respiratory distress HENMT: Mouth: Yes dry mucous membranes Eyes: General: appearance normal, both eyes and all related structures Sclera: sclerae normal Pupils: Equal, round and reactive pupils present EOM: EOMs intact bilaterally Resp: Effort & Inspection: normal respiratory effort Auscultation: clear to auscultation bilaterally Cardio: Rate: tachycardic Rhythm: regular rhythm Other: S1-S2 present without murmur, rub, ectopy GI: Other: diffuse tenderness and guarding, normoactive bowel sounds throughout, abdomen nondistended and soft. Urinary Catheter: Urinary Catheter: patent and draining (replaced with temp chang) and other ( urine dark yellow, no clots, no blood) Skin: General skin exam: normal color and no rashes or lesions noted Wounds: no wounds Neuro: Other: moderate dysarthria that improved with hydrating oral mucosa, alert and orientated times self, place, birthday. Having difficulty contrib
[2024-03-08] MEDS: KETOROLAC 30 MG/ML VIAL (*BKC) IV PUSH (17:15)
[2024-03-08] MEDS: MEROPENEM 1 GM/NS 100 ML 1 GM/100 ML BAG IVPB (17:43)
[2024-03-08] MEDS: POTASSIUM CHLORIDE INJ 40 MEQ in SODIUM CHLORIDE 0.9% IV 500 ML 130 MEQ IVPB (18:47)
--- NOTE | 2024-03-08 18:54 | PC.NURSE ---
Called Florinda, pt spouse, to obtain/verify home medications, patient and family medical history. No answer, voicemail with callback number provided.
[2024-03-08] MEDS: NOREPINEPHRINE 8 MG/D5W 250 ML 8 MG/250 ML BAG 9.38 MG IV CONT (22:36)
[2024-03-08 23:21] LABS: Anion Gap 8 mmol/L (4-12); Blood Urea Nitrogen 12 mg/dL (7-17); Calcium 9.4 mg/dL (8.4-10.2); Carbon Dioxide 19 mmol/L (22-30); Chloride 109 mmol/L (98-107); Estimated CRCL calculation 74 ml/min; Estimated Glomerular Filt Rate > 60; Glucose 123 mg/dL (65-110); Potassium 3.7 mmol/L (3.4-5.0); Sodium 136 mmol/L (137-145)
[2024-03-09] VITALS (38 sets, daily range): BP systolic 101–134; BP diastolic 53–94; PULSE 61–116; RESP 18–28; TEMP 34.6–38.8; O2SAT 92–100; BMI 25.7
[2024-03-09 00:30] LABS: Procalcitonin 11.6 ng/mL
--- NOTE | 2024-03-09 01:19 | P.PCNBED_ITS ---
Procedures Central Line Placement Right Femoral: Central Line Date: 03/09/24 Central Line Time: 01:00 Discussed w/ the patient/family/POA,the placement of a central venous catheter, including its clinical necessity/indication & associated potential risks, benifits and alternatives.: Yes The patient/family/POA understand(s) and acknowledge(s) the need to proceed with central venous catheter insertion as an important element of the patient's clinical management.: Yes Performed Emergently - Given emergent patient condition, temporal constraints may have precluded informed consent.: Yes Consent: I have discussed with the patient, the emergent placement of a central venous catheter, including its clinical necessity/indication and associated potential risks and complications. The patient understand(s) and acknowledge(s) to the best of her current ability the need to proceed with central venous catheter insertion as an important element of the patient's clinical management. Time Out Performed: Yes Patient Position: supine Patient placed on monitor/pulse ox: Yes Provider Prep: mask, sterile gown, sterile gloves, Max. sterile barrier precautions, cap and hand hygiene with conventional soap/water or alcohol based hand rub Central line prep: 2% Chlorhexidine scrub and sterile full body sheet applied Local anesthesia used: lidocaine 1% Amount of anesthesia used (ml): 3 Sterile US Technique with sterile gel/sterile probe covers: Yes Central line lumen inserted: triple Bulgarian: 7 Length (cm): 20 Depth of Insertion (cm): 20 Post Procedure: sutured in place, good blood return, all ports aspirated, flushed, capped, transparent dressing, antimicrobial product and aseptic technique maintained throughout procedure Patient tolerated procedure: well Complications: none Additional comments: position verified with US and no pulsatile blood in line observed.
[2024-03-09] MEDS: MEROPENEM 1 GM/NS 100 ML 1 GM/100 ML BAG IVPB ×3 (02:05→17:21)
[2024-03-09 04:12] LABS: Hematocrit 34.5 % (37.0-47.0); Hemoglobin 10.7 g/dL (12.0-15.0); Mean Corpuscular Hemoglobin 28.7 pg (26-34); Mean Corpuscular Volume 92.5 fl (80-100); Mean Platelet Volume 9.6 fl (7.4-10.4); Platelet Count Result 288 k/mm3 (150-375); Red Blood Count 3.73 M/mm3 (4.2-5.4); Red Cell Distribution Width 17.1 % (11.5-14.5); White Blood Count 42.3 K/mm3 (4.5-10.0)
[2024-03-09 04:33] LABS: Lactic Acid Reflex 1.8 mmol/L (0.7-2.0)
[2024-03-09 04:34] LABS: Alanine Aminotransferase 15 U/L (6-35); Albumin Level 2.6 g/dL (3.5-5.1); Alkaline Phosphatase 146 U/L (38-126); Anion Gap 8 mmol/L (4-12); Aspartate Amino Transferase 34 U/L (14-36); Bilirubin,Total 0.8 mg/dL (0.2-1.3); Blood Urea Nitrogen 14 mg/dL (7-17); Calcium 9.7 mg/dL (8.4-10.2); Carbon Dioxide 22 mmol/L (22-30); Chloride 109 mmol/L (98-107); Estimated CRCL calculation 74 ml/min; Estimated Glomerular Filt Rate > 60; Glucose 121 mg/dL (65-110); Potassium 3.4 mmol/L (3.4-5.0); Sodium 139 mmol/L (137-145)
[2024-03-09] MEDS: CENTRAL LINE FLUSH 10 ML IV PUSH ×3 (04:41→21:00)
[2024-03-09 04:49] LABS: Band Neutrophils Percent 5 % (0-6); Lymphocytes Absolute Manual 1.26 K/mm3 (1.1-4.5); Metamyelocytes Percent 1 %; Neutrophils Percent Manual 91 % (46-73); Platelet Estimate Adequate (Adequate); Total Cells Counted 100
[2024-03-09 04:50] LABS: Anisocytosis 1+; Burr Cells 1+; Macrocytosis 1+ (NORMAL); Ovalocytes 1+; Polychromasia 1+; Schistocytes Rare
[2024-03-09] MEDS: SODIUM CHLORIDE 0.9% IV 1,000 ML 125 ML IV CONT (07:30)
--- NOTE | 2024-03-09 08:27 | WPDCNINT ---
Assessment and Plan Assessment and plan (1) Septic shock: Code(s): A41.9 - Sepsis, unspecified organism; R65.21 - Severe sepsis with septic shock Status: Acute Assessment and Plan: Secondary to UTI, cystitis and left-sided pyelitis Patient also had 3 mm left ureteral stone with hydronephrosis now status post stent placement by Urology Empiric broad spectrum antibiotics with meropenem Blood and urine Cultures sent and pending. Patient has received close to 6 L and will hold further IV fluids at this time Monitor urine output electrolytes and creatinine Her lactic acid level has normalized Continue Levophed titration to maintain perfusion of vital organs and prevent end organ ischemia and Goal MAP > 65 (2) Metabolic encephalopathy: Code(s): G93.41 - Metabolic encephalopathy Status: Acute Assessment and Plan: Mental status improved through the night patient now alert oriented x3 Head CT and ammonia level normal Monitor (3) Electrolyte abnormality: Code(s): E87.8 - Other disorders of electrolyte and fluid balance, not elsewhere classified Status: Acute Assessment and Plan: Replace low potassium (4) Hydronephrosis, left: Code(s): N13.30 - Unspecified hydronephrosis Status: Acute (5) Left ureteral stone: Code(s): N20.1 - Calculus of ureter Status: Acute (6) Abdominal pain: Code(s): R10.9 - Unspecified abdominal pain Status: Acute (7) Metastatic disease: Code(s): C79.9 - Secondary malignant neoplasm of unspecified site Status: Acute (8) UTI (urinary tract infection): Code(s): N39.0 - Urinary tract infection, site not specified Status: Acute (9) Pyelitis: Code(s): N12 - Tubulo-interstitial nephritis, not specified as acute or chronic Status: Acute (10) Endometrial carcinoma: Code(s): C54.1 - Malignant neoplasm of endometrium Status: Acute Assessment and Plan: Management per oncology Plan DVT prophylaxis -Lovenox Nutrition -advance diet Code Status - Full Code Total Critical Care Time - 30 minutes Due to a high probability of clinically significant, life threatening deterioration, the patient required my highest level of preparedness to intervene emergently and I personally spent this critical care time directly and personally managing the patient. This critical care time included obtaining a history; examining the patient; pulse oximetry; ordering and review of studies; arranging urgent treatment with development of a management plan; evaluation of patient's response to treatment; frequent reassessment; and discussions with other providers. It was exclusive of separately billable procedures and treating other patients and teaching time. Please see Assessment and Plan section and the rest of the note for further information on patient assessment and treatment Medical Safety Director Consult Note Consult date: 03/09/24 Reason for consult: Septic shock HPI: Cheyanne Arenas is a 64 year old female who is not see a physician or seek medical care and has no known past medical history and is not on any medication was recently diagnosed with abdominal mass in sae hepaticus on a CT scan done in the ER for abdominal pain which is suggestive of neoplasm. She was also found to be having mass in her uterus suggestive of endometrial carcinoma. Apparently patient was seen by Oncology as an outpatient and a CT guided biopsy the mass was planned. Yesterday when patient presented as an outpatient for biopsy was found to be confused and was sent to ER. In ER patient was found to be having UTI, sepsis. Initial VS at presentation: 99.3? F, HR 122, RR 20, 131/92, and 100% on RA. ED workup showed: WBC 31.6, no anemia, sodium 133, potassium 3.2, creatinine 0.7 and GFR >60, lactic 4.7, ammonia <9, BNP 968. UA suspicious for UTI. UDS positive for opiates. Head CT showed a normal aging brain. CT abd/pe
[2024-03-09] MEDS: HYDROmorphone HCL INJ (*CRX) 1 MG/ML SYR 0.5 MG IV PUSH ×2 (08:30→11:58)
--- NOTE | 2024-03-09 08:34 | PC.NURSE ---
daughter Delia Arenas called for update; pt okayed to give her update; Delia stated she is power of district attorney and will bring in papers later but dad is not aware of this; daughter did say patient has not been to a doctor in awhile so no known medical history or medications, Dr. Key updated on that; Blancalaura's phone number [phone]
[2024-03-09 09:06] LABS: Iron 13 ug/dL (37-170)
[2024-03-09 09:15] LABS: Percent Iron Saturation 9 % (20-50)
[2024-03-09] MEDS: ENOXAPARIN 40 MG/0.4 ML SYRINGE SUB-Q (09:21)
[2024-03-09] MEDS: HYDROcodone/acetaminophen (*CRX) 5-325 MG TABLET 1 TAB PO (09:23)
[2024-03-09] MEDS: POTASSIUM CHLORIDE 20 MEQ PACKET (FOR LIQUID) 40 MEQ FEED TUBE (09:23)
[2024-03-09 09:28] LABS: CRP 20.4 mg/dL (<1.0)
--- NOTE | 2024-03-09 09:43 | PDONCCN ---
HPI - Date of Consult Date/Time: 03/09/24 17:27 <Hao Perry - 03/09/24 17:31> 03/09/24 09:43 <Dorys Kauffman - 03/09/24 09:48> Requesting Physician: Santos Ramires MD <Hao Perry - 03/09/24 17:31> Santos Ramires MD <Dorys Kauffman - 03/09/24 09:48> Primary Care Provider: Hao Perry MD <Hao Perry - 03/09/24 17:31> Hao Perry MD <Dorys Kauffman - 03/09/24 09:48> - Consult Narrative Reason for consult: Metastatic Disease <Dorys Kauffman - 03/09/24 09:48> Narrative: Cheyanne Arenas is a 64 year old female <Hao Perry - 03/09/24 17:31> Cheyanne Arenas is a 64 year old female with a past medical history of metastatic poorly differentiated carcinoma s/p ultrasound biopsy of the left liver mass and lymph node. Paracentesis completed on February 03 showed no malignancy. PET scan February 09 showed large mass in the sae hepatis and pancreas. We have spoken with Dr Rivas about her case and believes this could be a pancreatic primary. Original biopsy was of insufficient material to be sent for [facility] tumor origin testing therefore we have scheduled a repeat biopsy of the liver to be completed on 03/08. Per chart review, patient was going to have the biopsy completed and was having AMS and abdominal pain and was admitted. She was found to have pyelitis / cystitis / UTI / and has undergone a stent for a left ureteral stone. She was found to be hypotensive after the procedure and was admitted to the ICU. She is oriented 2-3 today. She is c/o of 5/10 abdominal pain. She is having difficulty swallowing pills. CT scan shows 3 mm stone in distal left ureter with mild left hydronephrosis and hydroureter. Cystitis and left-sided pyelitis. 2. Large mass involving the perihepatic lymph node chain and left hepatic lobe, consistent with metastatic disease. 3. Small volume of ascites. 4. Thickened endometrial complex suspicious for endometrial carcinoma. 5. Mild splenomegaly. Labs are notable for Hgb 10.7, Hct 34 WBC 42.3, Plt 288 <JamariDorys - 03/09/24 12:11> Review of Systems - Review of Systems All systems reviewed & are unremarkable except as noted in HPI and bel <Dorys Kauffman - 03/09/24 09:57> [facility] Medical History: Medical History (Last Reviewed 03/09/24 @ 08:27 by Sadiq Key MD) Abdominal mass large mass involving the perihepatic lymph node chain and left hepatic lobe, first seen on CT on 01/21/24 <Hao Perry - 03/09/24 17:31> Medical History (Last Reviewed 03/09/24 @ 08:27 by Sadiq Key MD) Abdominal mass large mass involving the perihepatic lymph node chain and left hepatic lobe, first seen on CT on 01/21/24 <Dorys Kauffman - 03/09/24 09:48> - Social History Social History: Social History (Last Reviewed 03/09/24 @ 08:27 by Sadiq Key MD) Others: Spiritual care concerns: No <Hao Perry - 03/09/24 17:31> Social History (Last Reviewed 03/09/24 @ 08:27 by Sadiq Key MD) Others: Spiritual care concerns: No <Dorys Kauffman - 03/09/24 09:48> Exam - General Pt is resting in bed in no acute distress <Dorys Kauffman - 03/09/24 09:57> - Vital Signs Vital Signs - 24 hr 03/08/24 18:00 03/08/24 18:00 03/08/24 17:30 Temperature 37.4 C Pulse Rate 103 H 103 H 121 H Respiratory Rate 24 H 24 H Blood Pressure 97/61 L 130/62 Pulse Oximetry 94 95 Oxygen Delivery 03/08/24 18:00 03/08/24 18:30 03/08/24 19:00 Temperature 37.3 C 37.2 C 36.9 C Pulse Rate 103 H 101 H 97 Respiratory Rate 24 H 27 H 25 H Blood Pressure 88/62 L 93/56 L 85/61 L Pulse Oximetry 95 93 95 Oxygen Delivery 03/08/24 19:15 03/08/24 20:00 03/08/24 20:00 Temperature 36.8 C 36.4 C Pulse Rate 99 84 Respiratory Rate 24 H 26 H Blood Pressure 95/68 L 75/61 L Pulse Oximetry 95 96 Oxygen Delivery Room Air 03/08/24 20:00 03/08/24 21:58 03/08/24 2
[2024-03-09 10:18] LABS: Folic Acid 1.8 ng/mL (2.76->20)
--- NOTE | 2024-03-09 10:33 | PM.IMPN ---
Progress Note: A&P Assessment and Plan (1) Septic shock: Code(s): A41.9 - Sepsis, unspecified organism; R65.21 - Severe sepsis with septic shock Status: Acute (2) UTI (urinary tract infection): Code(s): N39.0 - Urinary tract infection, site not specified Status: Acute (3) Hydronephrosis, left: Code(s): N13.30 - Unspecified hydronephrosis Status: Acute Plan (1) Septic shock: Code(s): A41.9 - Sepsis, unspecified organism; R65.21 - Severe sepsis with septic shock Status: Acute Assessment and Plan: Secondary to UTI, cystitis and left-sided pyelitis Patient also had 3 mm left ureteral stone with hydronephrosis now status post stent placement by Urology Empiric broad spectrum antibiotics with meropenem Blood and urine Cultures sent and pending. Patient has received close to 6 L and will hold further IV fluids at this time Monitor urine output electrolytes and creatinine Her lactic acid level has normalized Continue Levophed titration to maintain perfusion of vital organs and prevent end organ ischemia and Goal MAP > 65 (2) Metabolic encephalopathy: Code(s): G93.41 - Metabolic encephalopathy Status: Acute Assessment and Plan: Mental status improved through the night patient now alert oriented x3 Head CT and ammonia level normal Monitor (3) Electrolyte abnormality: Code(s): E87.8 - Other disorders of electrolyte and fluid balance, not elsewhere classified Status: Acute Assessment and Plan: Replace low potassium (4) Hydronephrosis, left: Code(s): N13.30 - Unspecified hydronephrosis Status: Acute (5) Left ureteral stone: Code(s): N20.1 - Calculus of ureter Status: Acute (6) Abdominal pain: Code(s): R10.9 - Unspecified abdominal pain Status: Acute (7) Metastatic disease: Code(s): C79.9 - Secondary malignant neoplasm of unspecified site Status: Acute (8) UTI (urinary tract infection): Code(s): N39.0 - Urinary tract infection, site not specified Status: Acute (9) Pyelitis: Code(s): N12 - Tubulo-interstitial nephritis, not specified as acute or chronic Status: Acute (10) Endometrial carcinoma: Code(s): C54.1 - Malignant neoplasm of endometrium Status: Acute Assessment and Plan: Management per oncology Subjective Date/time seen: 03/09/24 10:33 Interval history: I saw on exam patient today, patient underwent liver biopsy today, patient feels some pain upper abdomen, no bleeding from biopsy site patient is off vasopressor, patient denies chest pain, shortness a breath Exam Narrative: GENERAL: Pleasant, in no acute distress. Well-nourished. - EYES: EOMI. Anicteric. - HENT: Moist mucous membranes. - LUNGS: Clear to auscultation bilaterally, no wheezing, rhonchi, or rales. - CARDIOVASCULAR: Regular rate and rhythm. No murmur. No JVD. - ABDOMEN: Soft, non-tender and non-distended. No palpable masses. - EXTREMITIES: No edema. Peripheral pulses 2+. Non-tender. - NEUROLOGIC: No focal neurological deficits. CN II-XII grossly intact. - PSYCHIATRIC: Awake, Alert and oriented x 3. Appropriate mood and affect. General weakness - SKIN: No rashes or lesions. Warm. - LYMPH: No cervical lymphadenopathy. Objective Data Vital Signs Vital Signs: Vital Signs - 24 hr 03/08/24 12:19 03/08/24 13:31 03/08/24 14:12 Temperature 98.4 F Pulse Rate 112 H 113 H 140 H Respiratory Rate 16 18 18 Blood Pressure 110/74 112/81 131/116 H Pulse Oximetry 95 100 100 Oxygen Delivery Room Air Oxygen Flow Rate 03/08/24 15:17 03/08/24 15:30 03/08/24 15:40 Temperature 101.7 F H Pulse Rate 148 H 136 H 136 H Respiratory Rate 30 H 33 H 30 H Blood Pressure 99/60 L 85/53 L 91/57 L Pulse Oximetry 100 100 100 Oxygen Delivery Simple Face Mask Simple Face Mask Simple Face Mask Oxygen Flow Rate 8 8 8 03/08/24 15:50 03/08/24 15
[2024-03-09] MEDS: IRON SUCROSE COMPLEX 500 MG in SODIUM CHLORIDE 0.9% IV 250 ML 79 MG IVPB (11:13)
--- NOTE | 2024-03-09 12:37 | P.PNAN_ITS ---
Anes - Prog Note Post-Op Date/Time: 03/09/24 12:37 Cardiovascular status: normal Respiratory status: normal Airway patency: baseline Mental status: baseline Post-Op hydration status: normal Vital Signs: Last Vital Signs Temp 38.8 C H 03/09/24 10:00 Pulse 106 H 03/09/24 10:00 Resp 28 H 03/09/24 10:00 BP 126/65 03/09/24 10:00 Pulse Ox 100 03/09/24 11:39 O2 Del Method Room Air 03/09/24 11:39 O2 Flow Rate 8 03/08/24 15:55 Pain Score (VAS): 10/30 I/O: Intake & Output 03/08/24 03/09/24 03/09/24 23:59 07:59 15:59 Intake Total 3022.1 1421.1 102.6 Output Total 250 Balance 3022.1 1171.1 102.6 Laboratory Tests 03/09/24 04:07 03/09/24 04:07 03/08/24 03/08/24 03/09/24 13:38 23:05 04:07 WBC 42.3 H RBC 3.73 L Hgb 10.7 L Hct 34.5 L MCV 92.5 D MCH 28.7 MCHC 31.0 L RDW 17.1 H Plt Count 288 MPV 9.6 Immature Gran % (Auto) Not Reportable Neut % (Auto) Not Reportable Lymph % (Auto) Not Reportable [place] % (Auto) Not Reportable Eos % (Auto) Not Reportable Baso % (Auto) Not Reportable Lymph # (Auto) Not Reportable [place] # (Auto) Not Reportable Eos # (Auto) Not Reportable Baso # (Auto) Not Reportable Abs Immat Gran (auto) Not Reportable Absolute Neuts (auto) Not Reportable Absolute Nucleated RBC Not Reportable Total Counted 100 Neutrophils % (Manual) 91 H Band Neutrophils % 5 Lymphocytes % (Manual) 3.0 L Metamyelocytes % 1 Nucleated RBC % Not Reportable Abs Neuts (Manual) 40.60 H Abs Lymphs (Manual) 1.26 Platelet Estimate Adequate Polychromasia 1+ Anisocytosis 1+ Macrocytosis 1+ Ovalocytes 1+ Vivek Cells 1+ Schistocytes Rare ESR Pending Sodium 136 L 139 Potassium 3.7 3.4 Chloride 109 H 109 H Carbon Dioxide 19 L 22 Anion Gap 8 8 BUN 12 14 Creatinine 0.70 0.70 Estim Creat Clear Calc 74 74 Estimated GFR > 60 > 60 Glucose 123 H 121 H Lactic Acid 2.2 H 1.8 Calcium 9.4 9.7 Iron 13 L TIBC 152 L % Saturation 9 L Ferritin 503.00 H Total Bilirubin 0.8 AST 34 ALT 15 Alkaline Phosphatase 146 H C-Reactive Protein 20.4 H Total Protein 6.0 L Albumin 2.6 L CA 125 Antigen Pending Vitamin B12 868.0 Folate 1.8 L Procalcitonin 11.6 Microbiology 03/08/24 13:38 Blood Blood Culture - Preliminary 03/08/24 13:38 Blood Blood Culture - Preliminary Post-procedural complaints: none Patient Feedback: Patient satisfied with anesthetic care.
--- NOTE | 2024-03-09 13:11 | WPDUROPN2 ---
Progress Note: A&P Assessment and Plan (1) Sepsis: Qualifiers: Sepsis type: sepsis due to unspecified organism Sepsis acute organ dysfunction status: with acute organ dysfunction Severe sepsis acute organ dysfunction type: encephalopathy Severe sepsis shock status: with septic shock Qualified Code(s): A41.9 - Sepsis, unspecified organism; R65.21 - Severe sepsis with septic shock; G93.41 - Metabolic encephalopathy Code(s): A41.9 - Sepsis, unspecified organism Status: Acute Assessment and Plan: Secondary to UTI. Met criteria for sepsis on admission with tachycardia, leukocytosis, lactic acidosis. Now with fever (Tmax 101.8). Now requiring pressors. Continue IV fluids, empiric antibiotics, and management per primary team. (2) Left ureteral stone: Code(s): N20.1 - Calculus of ureter Status: Acute Assessment and Plan: 3 mm distal left ureteral stone with mild left hydroureteronephrosis. Underwent cystoscopy with bilateral ureteral stent placement on 03/08/24 and tolerated this well. Will plan for definitive management at a later date. (3) Bilateral hydronephrosis: Code(s): N13.30 - Unspecified hydronephrosis Status: Acute Assessment and Plan: Noted to have bilateral hydro. S/p bilateral stent placement. Continue chang catheter for maximal drainage. (4) Abnormal urinalysis: Code(s): R82.90 - Unspecified abnormal findings in urine Status: Acute Assessment and Plan: UA abnormal, concerning for possible infection. Continue empiric antibiotics while awaiting urine culture results. 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 Being managed by oncology. Underwent liver biopsy today. Subjective Subjective Date/Time Seen: 03/09/24 13:11 Interval history: Cheyanne is a bit more alert today. She still has some confusion but is able to answer questions appropriately. She denies suprapubic pain or flank pain. Her chang catheter is draining clear yellow urine. Review of Systems Review of Systems: All systems reviewed & are unremarkable except as noted in HPI and below Exam Narrative: General: Awake, alert, slightly confused, appears acutely uncomfortable HEENT: Normocephalic, atraumatic, sclerae anicteric Respiratory: Normal respiratory effort, no accessory muscle use Abdomen: Nondistended, soft, nontender Skin: Normal coloration, warm and dry Neurologic: No focal neuro deficits noted Psychiatric: Appropriate mood and affect, judgment and insight fair Objective Data Vital Signs Vital Signs: Vital Signs - 24 hr 03/08/24 13:31 03/08/24 14:12 03/08/24 15:17 Temperature 98.4 F 101.7 F H Pulse Rate 113 H 140 H 148 H Respiratory Rate 18 18 30 H Blood Pressure 112/81 131/116 H 99/60 L Pulse Oximetry 100 100 100 Oxygen Delivery Room Air Simple Face Mask Oxygen Flow Rate 8 03/08/24 15:30 03/08/24 15:40 03/08/24 15:50 Temperature Pulse Rate 136 H 136 H 130 H Respiratory Rate 33 H 30 H 30 H Blood Pressure 85/53 L 91/57 L 89/53 L Pulse Oximetry 100 100 100 Oxygen Delivery Simple Face Mask Simple Face Mask Simple Face Mask Oxygen Flow Rate 8 8 8 03/08/24 15:55 03/08/24 16:00 03/08/24 16:05 Temperature 99.4 F Pulse Rate 130 H 131 H 128 H Respiratory Rate 31 H 31 H 30 H Blood Pressure 88/65 L 92/66 L 97/73 L Pulse Oximetry 100 94 94 Oxygen Delivery Simple Face Mask Room Air Room Air Oxygen Flow Rate 8 03/08/24 16:15 03/08/24 16:40 03/08/24 16:00 Temperature 99.7 F H Pulse Rate 121 H 115 H 103 H Respiratory Rate 27 H 27 H Blood Pressure 88/56 L 89/54 L Pulse Oximetry 93 96 Oxygen Delivery Room Air Oxygen Flow Rate 03/08
[2024-03-09 13:39] LABS: Erythrocyte Sedimentation Rate 53 mm/hr (0-20)
[2024-03-09] MEDS: FERROUS SULFATE LIQUID 325 MG/7.4 ML ELIXIR PO (17:21)
[2024-03-10] VITALS (12 sets, daily range): BP systolic 93–120; BP diastolic 54–74; PULSE 73–95; RESP 19–24; TEMP 36.5–37.4; O2SAT 93–99
[2024-03-10] MEDS: HYDROcodone/acetaminophen (*CRX) 5-325 MG TABLET 1 TAB PO (04:59)
[2024-03-10] MEDS: MEROPENEM 1 GM/NS 100 ML 1 GM/100 ML BAG IVPB ×3 (05:02→17:15)
[2024-03-10] MEDS: CENTRAL LINE FLUSH 10 ML IV PUSH ×3 (05:02→22:00)
[2024-03-10 08:39] LABS: Hematocrit 29.9 % (37.0-47.0); Hemoglobin 9.1 g/dL (12.0-15.0); Mean Corpuscular HGB Conc 30.4 g/dl (32-36); Mean Corpuscular Hemoglobin 28.3 pg (26-34); Mean Corpuscular Volume 92.9 fl (80-100); Mean Platelet Volume 9.3 fl (7.4-10.4); Platelet Count Result 161 k/mm3 (150-375); Red Blood Count 3.22 M/mm3 (4.2-5.4); Red Cell Distribution Width 17.2 % (11.5-14.5); White Blood Count 23.2 K/mm3 (4.5-10.0)
[2024-03-10 09:01] LABS: Alanine Aminotransferase 12 U/L (6-35); Albumin Level 2.3 g/dL (3.5-5.1); Alkaline Phosphatase 136 U/L (38-126); Anion Gap 3 mmol/L (4-12); Aspartate Amino Transferase 27 U/L (14-36); Bilirubin,Total 0.7 mg/dL (0.2-1.3); Blood Urea Nitrogen 17 mg/dL (7-17); Calcium 9.7 mg/dL (8.4-10.2); Carbon Dioxide 24 mmol/L (22-30); Chloride 110 mmol/L (98-107); Estimated CRCL calculation 85 ml/min; Estimated Glomerular Filt Rate > 60; Glucose 114 mg/dL (65-110); Magnesium 2.1 mg/dL (1.6-2.3); Potassium 3.6 mmol/L (3.4-5.0); Sodium 137 mmol/L (137-145)
--- NOTE | 2024-03-10 09:23 | WPDINTPN ---
Progress Note: A&P Assessment and Plan (1) Septic shock: Code(s): A41.9 - Sepsis, unspecified organism; R65.21 - Severe sepsis with septic shock Status: Acute Assessment and Plan: Secondary to UTI, cystitis and left-sided pyelitis Patient also had 3 mm left ureteral stone with hydronephrosis now status post stent placement by Urology Empiric broad spectrum antibiotics with meropenem Blood and urine Cultures sent and pending. Patient has received close to 6 L and will hold further IV fluids at this time Monitor urine output electrolytes and creatinine Her lactic acid level has normalized and Levophed has been weaned off Goal MAP > 65 (2) Metabolic encephalopathy: Code(s): G93.41 - Metabolic encephalopathy Status: Acute Assessment and Plan: Mental status improved through the night patient now alert oriented x3 Head CT and ammonia level normal Monitor (3) Electrolyte abnormality: Code(s): E87.8 - Other disorders of electrolyte and fluid balance, not elsewhere classified Status: Acute Assessment and Plan: Replace low potassium (4) Hydronephrosis, left: Code(s): N13.30 - Unspecified hydronephrosis Status: Acute Assessment and Plan: See above (5) Left ureteral stone: Code(s): N20.1 - Calculus of ureter Status: Acute Assessment and Plan: See above (6) Abdominal pain: Code(s): R10.9 - Unspecified abdominal pain Status: Acute Assessment and Plan: See above (7) Metastatic disease: Code(s): C79.9 - Secondary malignant neoplasm of unspecified site Status: Acute Assessment and Plan: Patient had CT-guided biopsy yesterday and pathology is pending (8) Endometrial carcinoma: Code(s): C54.1 - Malignant neoplasm of endometrium Status: Acute Assessment and Plan: Management per oncology (9) UTI (urinary tract infection): Code(s): N39.0 - Urinary tract infection, site not specified Status: Acute Assessment and Plan: See above (10) Pyelitis: Code(s): N12 - Tubulo-interstitial nephritis, not specified as acute or chronic Status: Acute Assessment and Plan: See above Plan DVT prophylaxis -Lovenox Nutrition -advance diet Code Status - Full Code Transfer out of ICU today Subjective Date/time seen: 03/10/24 Overnight events reviewed. Afebrile On room air Abdominal pain is better Had biopsy yesterday Urine output is on the lower side. Other Vitals acceptable Sinus rhythm on the monitor Review of Systems Review of Systems: All systems reviewed & are unremarkable except as noted in HPI and below (HPI) Exam Narrative: General: Pt is alert awake and in NAD Lungs/Chest: Trachea central Clear BS B/L, No crackles or wheezing. Cardiac: RRR. Normal S1 S2. No murmurs Circulation: Pedal pulses are intact and symmetrical. Abdomen: Normal bowel sounds.. Soft. Tender to palpation right upper quadrant. No guarding or rigidity Extremities: No clubbing, cyanosis or edema. Warm : Carty in place Neurologic: Follows commands. Moves all 4 extremities PERRL AO x3 Skin: No Rash Objective Data Vital Signs Vital Signs: Vital Signs - 24 hr 03/09/24 09:30 03/09/24 10:00 03/09/24 10:00 Temperature 38.5 C H 38.8 C H Pulse Rate 106 H 106 H Respiratory Rate 28 H Blood Pressure 126/65 Pulse Oximetry 97 Oxygen Delivery 03/09/24 10:00 03/09/24 11:39 03/09/24 12:00 Temperature 38.3 C H Pulse Rate 106 H 112 H Respiratory Rate 22 H Blood Pressure 126/65 106/59 L Pulse Oximetry 100 96 Oxygen Delivery Room Air 03/09/24 12:00 03/09/24 12:00 03/09/24 12:05 Temperature 38.3 C H Pulse Rate 109 H 109 H 109 H Respiratory Rate 21 H Blood Pressure 106/59 L 110/53 L Pulse Oximetry 92 Oxygen Delivery 03/09/24 12:10 03/09/24 12:15 03/09/24 12:20 Temperature 38.2 C H 38.1 C H 37.8 C H Pulse Rate
--- NOTE | 2024-03-10 09:38 | WPDUROPN2 ---
Progress Note: A&P Assessment and Plan (1) Sepsis: Qualifiers: Sepsis acute organ dysfunction status: with acute organ dysfunction Sepsis type: sepsis due to unspecified organism Severe sepsis acute organ dysfunction type: encephalopathy Severe sepsis shock status: with septic shock Qualified Code(s): A41.9 - Sepsis, unspecified organism; R65.21 - Severe sepsis with septic shock; G93.41 - Metabolic encephalopathy Code(s): A41.9 - Sepsis, unspecified organism Status: Acute Assessment and Plan: Secondary to cystitis/pyelitis. Met criteria for sepsis on admission with tachycardia, leukocytosis, lactic acidosis. Tmax 101.8. Now requiring pressors. Continue IV fluids, empiric antibiotics, and management per primary team. (2) Left ureteral stone: Code(s): N20.1 - Calculus of ureter Status: Acute Assessment and Plan: 3 mm distal left ureteral stone with mild left hydroureteronephrosis. Underwent cystoscopy with bilateral ureteral stent placement on 03/08/24 and tolerated this well. Will plan for definitive management at a later date dependent on her clinical course. (3) Bilateral hydronephrosis: Code(s): N13.30 - Unspecified hydronephrosis Status: Acute Assessment and Plan: Noted to have bilateral hydro. S/p bilateral ureteral stent placement. Continue chang catheter for maximal drainage. (4) Abnormal urinalysis: Code(s): R82.90 - Unspecified abnormal findings in urine Status: Acute Assessment and Plan: Urine culture negative. Continue with empiric antibiotics given clinical findings of infection (5) Metastatic disease: Code(s): C79.9 - Secondary malignant neoplasm of unspecified site Status: Acute Assessment and Plan: Noted to have hepatic mass and lymphadenopathy consistent with metastatic disease as well as suspected endometrial carcinoma with ascites. Being managed by oncology. Underwent liver biopsy yesterday, awaiting results Subjective Subjective Date/Time Seen: 03/10/24 09:38 Interval history: Continues to be more alert today. Still exhibits confusion. Reports no issues with Chang catheter which is draining clear yellow urine. She denies abdominal pain, suprapubic pain, flank pain, back pain. Denies fevers or chills, though tells me she felt feverish yesterday. She is tolerating her diet this morning Review of Systems Review of Systems: All systems reviewed & are unremarkable except as noted in HPI and below Exam Narrative: General: Awake, alert, slightly confused, appears comfortable HEENT: Normocephalic, atraumatic, sclerae anicteric Respiratory: Normal respiratory effort, no accessory muscle use Abdomen: Nondistended, soft, nontender : Chang catheter draining mikala colored urine Skin: Normal coloration, warm and dry Neurologic: No focal neuro deficits noted Psychiatric: Appropriate mood and affect, judgment and insight fair Objective Data Vital Signs Vital Signs: Vital Signs - 24 hr 03/09/24 10:00 03/09/24 10:00 03/09/24 10:00 Temperature 101.8 F H Pulse Rate 106 H 106 H 106 H Respiratory Rate 28 H Blood Pressure 126/65 126/65 Pulse Oximetry 97 Oxygen Delivery 03/09/24 11:39 03/09/24 12:00 03/09/24 12:00 Temperature 101.0 F H Pulse Rate 112 H 109 H Respiratory Rate 22 H Blood Pressure 106/59 L 106/59 L Pulse Oximetry 100 96 Oxygen Delivery Room Air 03/09/24 12:00 03/09/24 12:05 03/09/24 12:10 Temperature 100.9 F H 100.8 F H Pulse Rate 109 H 109 H 113 H Respiratory Rate 21 H 18 Blood Pressure 110/53 L 116/59 L Pulse Oximetry 92 94 Oxygen Delivery 03/09/24 12:15 03/09/24 12:20 03/09/24 12:25 Temperature 100.6 F H 100.1 F H 100.3 F H Pulse Rate 114 H 116 H 112 H Respiratory Rate 22 H 22 H 22 H Blood Pressure 113/62 122/70 123/74 Pulse Oximetry 95 95 93 Oxygen Delivery 03/09/24 12:45 03/09/24 14:00 02/19
[2024-03-10] MEDS: FERROUS SULFATE LIQUID 325 MG/7.4 ML ELIXIR PO ×2 (10:03→17:15)
[2024-03-10] MEDS: ENOXAPARIN 40 MG/0.4 ML SYRINGE SUB-Q (10:03)
[2024-03-10] MEDS: POTASSIUM CHLORIDE 20 MEQ PACKET (FOR LIQUID) 40 MEQ FEED TUBE (10:04)
--- NOTE | 2024-03-10 10:23 | PM.IMPN ---
Progress Note: A&P Assessment and Plan (1) Septic shock: Code(s): A41.9 - Sepsis, unspecified organism; R65.21 - Severe sepsis with septic shock Status: Acute (2) UTI (urinary tract infection): Code(s): N39.0 - Urinary tract infection, site not specified Status: Acute (3) Hydronephrosis, left: Code(s): N13.30 - Unspecified hydronephrosis Status: Acute Plan (1) Septic shock: Code(s): A41.9 - Sepsis, unspecified organism; R65.21 - Severe sepsis with septic shock Status: Acute Assessment and Plan: Secondary to UTI, cystitis and left-sided pyelitis Patient also had 3 mm left ureteral stone with hydronephrosis now status post stent placement by Urology Empiric broad spectrum antibiotics with meropenem since in Blood and urine Cultures : no growth today Patient has received close to 6 L and will hold further IV fluids at this time Monitor urine output electrolytes and creatinine Her lactic acid level has normalized weaned off Levophed , and MAP > 65 (2) Metabolic encephalopathy: Code(s): G93.41 - Metabolic encephalopathy Status: Acute Assessment and Plan: Resolved Patient now alert oriented x3 Head CT and ammonia level normal Monitor (3) Electrolyte abnormality: Code(s): E87.8 - Other disorders of electrolyte and fluid balance, not elsewhere classified Status: Acute Assessment and Plan: Replace low potassium (4) Hydronephrosis, left: Code(s): N13.30 - Unspecified hydronephrosis Status: Acute (5) Left ureteral stone: Code(s): N20.1 - Calculus of ureter Status: Acute Underwent cystoscopy with bilateral ureteral stent placement on 03/08/24 and tolerated this well. (6) Abdominal pain: Code(s): R10.9 - Unspecified abdominal pain Status: Acute (7) Metastatic disease: Code(s): C79.9 - Secondary malignant neoplasm of unspecified site Status: Acute Status post liver biopsy Endometrial carcinoma: Code(s): C54.1 - Malignant neoplasm of endometrium Status: Acute Assessment and Plan: Management per oncology (8) UTI (urinary tract infection): Code(s): N39.0 - Urinary tract infection, site not specified Status: Acute (9) Pyelitis: Code(s): N12 - Tubulo-interstitial nephritis, not specified as acute or chronic Status: Acute Subjective Date/time seen: 03/10/24 10:23 Interval history: I saw on exam patient today, patient is off vasopressor, blood pressure soft, map 73 patient denies chest pain, shortness of breath, blood pressure soft, pulse ox 98 on room air, Exam Narrative: GENERAL: Pleasant, in no acute distress. Well-nourished. - EYES: EOMI. Anicteric. - HENT: Moist mucous membranes. - LUNGS: Clear to auscultation bilaterally, no wheezing, rhonchi, or rales. - CARDIOVASCULAR: Regular rate and rhythm. No murmur. No JVD. - ABDOMEN: Soft, non-tender and non-distended. No palpable masses. - EXTREMITIES: No edema. Peripheral pulses 2+. Non-tender. - NEUROLOGIC: No focal neurological deficits. CN II-XII grossly intact. - PSYCHIATRIC: Awake, Alert and oriented x 3. Appropriate mood and affect. General weakness - SKIN: No rashes or lesions. Warm. - LYMPH: No cervical lymphadenopathy. Objective Data Vital Signs Vital Signs: Vital Signs - 24 hr 03/09/24 11:39 03/09/24 12:00 03/09/24 12:00 Temperature 101.0 F H Pulse Rate 112 H 109 H Respiratory Rate 22 H Blood Pressure 106/59 L 106/59 L Pulse Oximetry 100 96 Oxygen Delivery Room Air 03/09/24 12:00 03/09/24 12:05 03/09/24 12:10 Temperature 100.9 F H 100.8 F H Pulse Rate 109 H 109 H 113 H Respiratory Rate 21 H 18 Blood Pressure 110/53 L 116/59 L Pulse Oximetry 92 94 Oxygen Delivery 03/09/24 12:15 03/09/24 12:20 03/09/24 12:25 Temperature 100.6 F H 100.1 F H 100.3 F H Pulse Rate 114 H 116 H 112 H Respiratory
--- NOTE | 2024-03-10 10:58 | PCNFU ---
Nutrition Follow-Up Complete: Inadequate Oral Intake as related to ab pain/mass as evidenced by poor po intake reported. Goal: Meet estimated nutritional needs. Patient has limited progress on goal. We will continue current goal. Pt current nutrition is Regular with Ensure Enlive TID. Last recorded weight is 81 kg, stable Bowel Motility: No BM reported. Labs Reviewed: Glu 114, Cr 0.6,Alb 2.3,Hct 29.9, Hgb 9.1 Meds Noted: Meropenem, Lovenox, Ferrous Sulfate. Skin: WNL Additional Notes: Patient remains on a regular diet. Intake 10% reported. Patient is receiving ensure enlive on trays providing an additional 350 kcals and 20 gm protein. PO Intake encouraged. Agree with diet orders. Will monitor weight, labs, skin, oral intake, meds every 5 days.
[2024-03-10 12:03] LABS: CA-125 306 U/mL (<35)
[2024-03-10] MEDS: HYDROmorphone HCL INJ (*CRX) 1 MG/ML SYR 0.5 MG IV PUSH (17:15)
[2024-03-11] VITALS (11 sets, daily range): BP systolic 103–129; BP diastolic 61–80; PULSE 69–88; RESP 16–20; TEMP 36.3–37.1; O2SAT 96–100
[2024-03-11] MEDS: MEROPENEM 1 GM/NS 100 ML 1 GM/100 ML BAG IVPB ×3 (00:50→17:58)
[2024-03-11] MEDS: HYDROmorphone HCL INJ (*CRX) 1 MG/ML SYR 0.5 MG IV PUSH ×3 (00:50→23:41)
[2024-03-11 05:49] LABS: CA 19-9 18 U/mL (<34)
[2024-03-11] MEDS: CENTRAL LINE FLUSH 10 ML IV PUSH ×2 (06:10→13:51)
[2024-03-11] MEDS: HYDROcodone/acetaminophen (*CRX) 5-325 MG TABLET 1 TAB PO ×2 (06:10→13:51)
[2024-03-11] MEDS: FERROUS SULFATE LIQUID 325 MG/7.4 ML ELIXIR PO ×2 (08:22→16:23)
[2024-03-11] MEDS: ENOXAPARIN 40 MG/0.4 ML SYRINGE SUB-Q (08:22)
--- NOTE | 2024-03-11 10:22 | PM.IMPN ---
Progress Note: A&P Assessment and Plan (1) Septic shock: Code(s): A41.9 - Sepsis, unspecified organism; R65.21 - Severe sepsis with septic shock Status: Acute (2) UTI (urinary tract infection): Code(s): N39.0 - Urinary tract infection, site not specified Status: Acute (3) Hydronephrosis, left: Code(s): N13.30 - Unspecified hydronephrosis Status: Acute Plan (1) Septic shock: Code(s): A41.9 - Sepsis, unspecified organism; R65.21 - Severe sepsis with septic shock Status: Acute Assessment and Plan: Secondary to UTI, cystitis and left-sided pyelitis Patient also had 3 mm left ureteral stone with hydronephrosis now status post stent placement by Urology Empiric broad spectrum antibiotics with meropenem since in Blood and urine Cultures : no growth today Patient has received close to 6 L and will hold further IV fluids at this time Monitor urine output electrolytes and creatinine Her lactic acid level has normalized weaned off Levophed , and MAP > 65 Sepsis has resolved, patient is afebrile, blood pressure stable (2) Metabolic encephalopathy: Code(s): G93.41 - Metabolic encephalopathy Status: Acute Assessment and Plan: Resolved Patient now alert oriented x3 Head CT and ammonia level normal Monitor (3) Electrolyte abnormality: Code(s): E87.8 - Other disorders of electrolyte and fluid balance, not elsewhere classified Status: Acute Assessment and Plan: Replace low potassium (4) Hydronephrosis, left: Code(s): N13.30 - Unspecified hydronephrosis Status: Acute (5) Left ureteral stone: Code(s): N20.1 - Calculus of ureter Status: Acute Underwent cystoscopy with bilateral ureteral stent placement on 03/08/24 and tolerated this well. (6) Abdominal pain: Code(s): R10.9 - Unspecified abdominal pain Status: Acute (7) Metastatic disease: Code(s): C79.9 - Secondary malignant neoplasm of unspecified site Status: Acute Status post liver biopsy Endometrial carcinoma: Code(s): C54.1 - Malignant neoplasm of endometrium Status: Acute Assessment and Plan: Management per oncology (8) UTI (urinary tract infection): Code(s): N39.0 - Urinary tract infection, site not specified Status: Acute (9) Pyelitis: Code(s): N12 - Tubulo-interstitial nephritis, not specified as acute or chronic Status: Acute Subjective Date/time seen: 03/11/24 10:22 Interval history: I saw on exam patient today, patient continued to improve, patient feels better, has intermittent epigastric pain, tolerable, denies nausea vomiting. Patient is afebrile, blood pressure stable, leukocytosis is trending down Exam Narrative: GENERAL: Pleasant, in no acute distress. Well-nourished. - EYES: EOMI. Anicteric. - HENT: Moist mucous membranes. - LUNGS: Clear to auscultation bilaterally, no wheezing, rhonchi, or rales. - CARDIOVASCULAR: Regular rate and rhythm. No murmur. No JVD. - ABDOMEN: Soft, non-tender and non-distended. No palpable masses. - EXTREMITIES: No edema. Peripheral pulses 2+. Non-tender. - NEUROLOGIC: No focal neurological deficits. CN II-XII grossly intact. - PSYCHIATRIC: Awake, Alert and oriented x 3. Appropriate mood and affect. General weakness - SKIN: No rashes or lesions. Warm. - LYMPH: No cervical lymphadenopathy. Objective Data Vital Signs Vital Signs: Vital Signs - 24 hr 03/10/24 12:00 03/10/24 12:00 03/10/24 14:00 Temperature 97.9 F Pulse Rate 88 88 84 Respiratory Rate 22 H Blood Pressure 106/64 Pulse Oximetry 99 Oxygen Delivery 03/10/24 14:00 03/10/24 12:00 03/10/24 16:00 Temperature 98.3 F Pulse Rate 79 85 78 Respiratory Rate 22 H 20 Blood Pressure 93/54 L Pulse Oximetry 97 99 Oxygen Delivery Room Air 03/10/24 16:00 03/10/24 16:00 03/10/24 18:00 Temperature 98.3 F Pu
[2024-03-11 10:46] LABS: Basophils Percent Auto 0.2 % (0.2-1.2); Hematocrit 31.3 % (37.0-47.0); Hemoglobin 9.7 g/dL (12.0-15.0); Immature Granulocyte Percent A 0.9 % (0-0.5); Lymphocytes Percent Auto 4.2 % (18.3-44.2); Mean Corpuscular Hemoglobin 28.6 pg (26-34); Mean Corpuscular Volume 92.3 fl (80-100); Mean Platelet Volume 9.2 fl (7.4-10.4); Monocytes Absolute Auto 0.5 K/mm3 (0.1-0.6); Monocytes Percent Auto 2.4 % (2.6-8.5); Neutrophils Absolute Auto 19.8 K/mm3 (1.3-6.7); Neutrophils Percent Auto 92.3 % (45.5-73.1); Platelet Count Result 170 k/mm3 (150-375); Red Blood Count 3.39 M/mm3 (4.2-5.4); White Blood Count 21.4 K/mm3 (4.5-10.0)
[2024-03-11 10:56] LABS: Anion Gap 4 mmol/L (4-12); Blood Urea Nitrogen 16 mg/dL (7-17); Calcium 10.2 mg/dL (8.4-10.2); Carbon Dioxide 22 mmol/L (22-30); Chloride 110 mmol/L (98-107); Estimated CRCL calculation 100 ml/min; Estimated Glomerular Filt Rate > 60; Glucose 133 mg/dL (65-110); Potassium 3.8 mmol/L (3.4-5.0); Sodium 136 mmol/L (137-145)
[2024-03-11 11:31] LABS: Procalcitonin 3.1 ng/mL
--- NOTE | 2024-03-11 17:00 | PC.NURSE ---
This patient, Cheyanne Arenas, was transferred to [facility] on 03/11/24 at 1700. Personal belongings sent with patient. Report given to Holly. Appropriate documentation sent with patient.
--- NOTE | 2024-03-11 17:25 | PC.NURSE ---
This patient, Cheyanne Arenas, was received from ICU 8 on 03/11/24 at 1725. Patient/family oriented to unit policies and routines.
[2024-03-12] MEDS: MEROPENEM 1 GM/NS 100 ML 1 GM/100 ML BAG IVPB ×3 (02:48→17:56)
[2024-03-12 04:06] VITALS: BP 119/62; PULSE 81; RESP 16; TEMP 36.4; O2SAT 99
[2024-03-12] MEDS: HYDROmorphone HCL INJ (*CRX) 1 MG/ML SYR 0.5 MG IV PUSH ×4 (05:19→15:33)
[2024-03-12 05:55] LABS: Basophils Absolute Auto 0.1 K/mm3 (0.0-0.1); Basophils Percent Auto 0.2 % (0.2-1.2); Eosinophils Percent Auto 0.1 % (0-4.4); Hematocrit 35.7 % (37.0-47.0); Hemoglobin 10.6 g/dL (12.0-15.0); Immature Granulocyte Absolute 0.23 K/mm3 (0.00-0.031); Immature Granulocyte Percent A 1.1 % (0-0.5); Lymphocytes Absolute Auto 1.04 K/mm3 (0.9-3.2); Lymphocytes Percent Auto 4.8 % (18.3-44.2); Mean Corpuscular HGB Conc 29.7 g/dl (32-36); Mean Corpuscular Hemoglobin 28.3 pg (26-34); Mean Corpuscular Volume 95.5 fl (80-100); Mean Platelet Volume 9.7 fl (7.4-10.4); Monocytes Absolute Auto 0.8 K/mm3 (0.1-0.6); Monocytes Percent Auto 3.5 % (2.6-8.5); Neutrophils Absolute Auto 19.7 K/mm3 (1.3-6.7); Neutrophils Percent Auto 90.3 % (45.5-73.1); Platelet Count Result 205 k/mm3 (150-375); Red Blood Count 3.74 M/mm3 (4.2-5.4); Red Cell Distribution Width 17.2 % (11.5-14.5); White Blood Count 21.8 K/mm3 (4.5-10.0)
[2024-03-12 06:16] LABS: Anion Gap 3 mmol/L (4-12); Blood Urea Nitrogen 15 mg/dL (7-17); Calcium 10.4 mg/dL (8.4-10.2); Carbon Dioxide 27 mmol/L (22-30); Chloride 108 mmol/L (98-107); Estimated CRCL calculation 85 ml/min; Estimated Glomerular Filt Rate > 60; Glucose 99 mg/dL (65-110); Potassium 4.5 mmol/L (3.4-5.0); Sodium 138 mmol/L (137-145)
[2024-03-12 06:36] LABS: Procalcitonin 1.8 ng/mL
[2024-03-12 07:19] LABS: Anisocytosis 1+; Burr Cells 1+; Hypochromasia 1+; Platelet Estimate Adequate (Adequate); Poikilocytosis 1+; Schistocytes None Seen
[2024-03-12 09:20] VITALS: O2SAT 99
[2024-03-12] MEDS: FERROUS SULFATE LIQUID 325 MG/7.4 ML ELIXIR PO ×2 (09:23→17:56)
[2024-03-12] MEDS: ENOXAPARIN 40 MG/0.4 ML SYRINGE SUB-Q (09:24)
[2024-03-12 15:14] VITALS: BP 128/74; PULSE 100; RESP 20; TEMP 36.7; O2SAT 90
[2024-03-12 16:00] VITALS: BP 128/74; PULSE 100; RESP 20; TEMP 36.7; O2SAT 90
--- NOTE | 2024-03-12 16:14 | PM.IMPN ---
Progress Note: A&P Assessment and Plan (1) Septic shock: Code(s): A41.9 - Sepsis, unspecified organism; R65.21 - Severe sepsis with septic shock Status: Acute (2) UTI (urinary tract infection): Code(s): N39.0 - Urinary tract infection, site not specified Status: Acute (3) Hydronephrosis, left: Code(s): N13.30 - Unspecified hydronephrosis Status: Acute Plan Septic shock, Secondary to UTI, cystitis and left-sided pyelitis Patient also had 3 mm left ureteral stone with hydronephrosis now status post stent placement by Urology Empiric broad spectrum antibiotics with meropenem since in Blood and urine Cultures : no growth today Patient has received close to 6 L and will hold further IV fluids at this time Monitor urine output electrolytes and creatinine Her lactic acid level has normalized weaned off Levophed , and MAP > 65 Sepsis has resolved, patient is afebrile, blood pressure stable Patient has severe abdomen pain today, cloudy urine drained out. X-ray showed Bilateral internal ureteral stents in expected position with 5 mm at 4 mm stones projecting over the upper pole of the left kidney, no small bowel obstruction, 03/12 (2) Metabolic encephalopathy: Code(s): G93.41 - Metabolic encephalopathy Status: Acute Assessment and Plan: Resolved Patient now alert oriented x3 Head CT and ammonia level normal Monitor (3) Electrolyte abnormality: Code(s): E87.8 - Other disorders of electrolyte and fluid balance, not elsewhere classified Status: Acute Assessment and Plan: Replace low potassium Chronic today (4) Hydronephrosis, left: Code(s): N13.30 - Unspecified hydronephrosis Status: Acute (5) Left ureteral stone: Code(s): N20.1 - Calculus of ureter Status: Acute Underwent cystoscopy with bilateral ureteral stent placement on 03/08/24 and tolerated this well. (6) Abdominal pain: Code(s): R10.9 - Unspecified abdominal pain Status: Acute (7) Metastatic disease: Code(s): C79.9 - Secondary malignant neoplasm of unspecified site Status: Acute Status post liver biopsy Endometrial carcinoma: Code(s): C54.1 - Malignant neoplasm of endometrium Status: Acute Assessment and Plan: Management per oncology (8) UTI (urinary tract infection): Code(s): N39.0 - Urinary tract infection, site not specified Status: Acute (9) Pyelitis: Code(s): N12 - Tubulo-interstitial nephritis, not specified as acute or chronic Status: Acute Subjective Date/time seen: 03/12/24 16:14 Interval history: I saw exam the patient presents now patient nurse. Patient has been having severe abdominal pain, locating of abdomen, has nausea denies vomiting. The patient received multiple doses of Dilaudid. Patient is afebrile, blood pressure stable, leukocytosis persists, the cloudy urine drained out Exam Narrative: GENERAL: Pleasant, in no acute distress. Well-nourished. - EYES: EOMI. Anicteric. - HENT: Moist mucous membranes. - LUNGS: Clear to auscultation bilaterally, no wheezing, rhonchi, or rales. - CARDIOVASCULAR: Regular rate and rhythm. No murmur. No JVD. - ABDOMEN: Soft, non-tender and non-distended. No palpable masses. - EXTREMITIES: No edema. Peripheral pulses 2+. Non-tender. - NEUROLOGIC: No focal neurological deficits. CN II-XII grossly intact. - PSYCHIATRIC: Awake, Alert and oriented x 3. Appropriate mood and affect. General weakness - SKIN: No rashes or lesions. Warm. - LYMPH: No cervical lymphadenopathy. Objective Data Vital Signs Vital Signs: Vital Signs - 24 hr 03/11/24 17:30 03/11/24 20:55 03/11/24 20:00 Temperature 97.7 F 97.6 F Pulse Rate 83 82 Respiratory Rate 20 18 Blood Pressure 105/80 129/79 Pulse Oximetry 99 100 Oxygen Delivery Room Air 03/12/24 04:06 03/12/24 09:20 03/12/24 15:14 Temperature 97.6
[2024-03-12] MEDS: HYDROcodone/acetaminophen (*CRX) 5-325 MG TABLET 1 TAB PO (18:45)
[2024-03-12 23:54] VITALS: BP 113/60; PULSE 72; RESP 18; TEMP 36.6; O2SAT 99
[2024-03-13] MEDS: MEROPENEM 1 GM/NS 100 ML 1 GM/100 ML BAG IVPB ×2 (02:52→09:11)
[2024-03-13] MEDS: HYDROcodone/acetaminophen (*CRX) 5-325 MG TABLET 1 TAB PO ×2 (03:19→17:16)
[2024-03-13] MEDS: HYDROmorphone HCL INJ (*CRX) 1 MG/ML SYR 0.5 MG IV PUSH ×2 (03:46→12:52)
[2024-03-13 04:22] VITALS: BP 124/72; PULSE 73; RESP 18; TEMP 36.5; O2SAT 99
[2024-03-13 08:50] LABS: Anion Gap 5 mmol/L (4-12); Blood Urea Nitrogen 15 mg/dL (7-17); Calcium 10.2 mg/dL (8.4-10.2); Carbon Dioxide 23 mmol/L (22-30); Chloride 108 mmol/L (98-107); Estimated CRCL calculation 100 ml/min; Estimated Glomerular Filt Rate > 60; Glucose 99 mg/dL (65-110); Potassium 4.3 mmol/L (3.4-5.0); Sodium 136 mmol/L (137-145)
[2024-03-13 09:09] LABS: Basophils Absolute Auto 0.1 K/mm3 (0.0-0.1); Basophils Percent Auto 0.3 % (0.2-1.2); Eosinophils Percent Auto 0.1 % (0-4.4); Hematocrit 33.2 % (37.0-47.0); Hemoglobin 10.1 g/dL (12.0-15.0); Immature Granulocyte Percent A 0.9 % (0-0.5); Lymphocytes Absolute Auto 1.44 K/mm3 (0.9-3.2); Lymphocytes Percent Auto 6.6 % (18.3-44.2); Mean Corpuscular HGB Conc 30.4 g/dl (32-36); Mean Corpuscular Hemoglobin 28.8 pg (26-34); Mean Corpuscular Volume 94.6 fl (80-100); Mean Platelet Volume 9.6 fl (7.4-10.4); Monocytes Absolute Auto 0.7 K/mm3 (0.1-0.6); Monocytes Percent Auto 3.3 % (2.6-8.5); Neutrophils Absolute Auto 19.2 K/mm3 (1.3-6.7); Neutrophils Percent Auto 88.8 % (45.5-73.1); Platelet Count Result 173 k/mm3 (150-375); Red Blood Count 3.51 M/mm3 (4.2-5.4); Red Cell Distribution Width 17.1 % (11.5-14.5); White Blood Count 21.7 K/mm3 (4.5-10.0)
[2024-03-13] MEDS: FERROUS SULFATE LIQUID 325 MG/7.4 ML ELIXIR PO ×2 (09:10→17:14)
[2024-03-13] MEDS: ENOXAPARIN 40 MG/0.4 ML SYRINGE SUB-Q (09:10)
--- NOTE | 2024-03-13 09:36 | WPDUROPN2 ---
Progress Note: A&P Assessment and Plan (1) Sepsis: Qualifiers: Sepsis acute organ dysfunction status: with acute organ dysfunction Sepsis type: sepsis due to unspecified organism Severe sepsis acute organ dysfunction type: encephalopathy Severe sepsis shock status: with septic shock Qualified Code(s): A41.9 - Sepsis, unspecified organism; R65.21 - Severe sepsis with septic shock; G93.41 - Metabolic encephalopathy Code(s): A41.9 - Sepsis, unspecified organism Status: Acute Assessment and Plan: Secondary to cystitis/pyelitis. Met criteria for sepsis on admission with tachycardia, leukocytosis, lactic acidosis. Tmax 101.8. Sepsis now resolved and she remains afebrile (2) Left ureteral stone: Code(s): N20.1 - Calculus of ureter Status: Acute Assessment and Plan: 3 mm distal left ureteral stone with mild left hydroureteronephrosis. Underwent cystoscopy with bilateral ureteral stent placement on 03/08/24 and tolerated this well. Will plan for definitive management at a later date dependent on her clinical course. KUB completed 03/12/24 showed bilateral stents in expected position with no ureteral stones visible (3) Bilateral hydronephrosis: Code(s): N13.30 - Unspecified hydronephrosis Status: Acute Assessment and Plan: Noted to have bilateral hydro. S/p bilateral ureteral stent placement. Continue chang catheter for maximal drainage at this time (4) Abnormal urinalysis: Code(s): R82.90 - Unspecified abnormal findings in urine Status: Acute Assessment and Plan: Urine culture negative. 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 Being managed by oncology. Underwent liver biopsy on 03/09/24, awaiting results Subjective Subjective Date/Time Seen: 03/13/24 09:36 Interval history: Feeling well today. Denies abdominal pain, flank pain, bladder spasms. No N/V/F/C. Reports poor appetite. Review of Systems Review of Systems: All systems reviewed & are unremarkable except as noted in HPI and below Exam Narrative: General: Awake, alert, slightly confused, appears comfortable HEENT: Normocephalic, atraumatic, sclerae anicteric Respiratory: Normal respiratory effort, no accessory muscle use Abdomen: Nondistended, soft, nontender : Chang catheter draining mikala colored urine Skin: Normal coloration, warm and dry Neurologic: No focal neuro deficits noted Psychiatric: Appropriate mood and affect, judgment and insight fair Objective Data Vital Signs Vital Signs: Vital Signs - 24 hr 03/12/24 15:14 03/12/24 15:21 03/12/24 16:00 Temperature 98.1 F 98.1 F Pulse Rate 100 100 Respiratory Rate 20 20 Blood Pressure 128/74 128/74 Pulse Oximetry 90 90 Oxygen Delivery Room Air 03/12/24 20:00 03/12/24 23:54 03/13/24 04:22 Temperature 97.8 F 97.7 F Pulse Rate 72 73 Respiratory Rate 18 18 Blood Pressure 113/60 124/72 Pulse Oximetry 99 99 Oxygen Delivery Room Air Intake/Output Intake/Output: Intake & Output 03/10/24 03/11/24 03/12/24 03/13/24 23:59 23:59 23:59 23:59 Intake Total 1450 1622 1170 100 Output Total 675 725 850 250 Balance 775 897 320 -150 Meds/Results Medications: Active Medications Generic Name Dose Route Start Last Admin Trade Name Freq PRN Reason Stop Dose Admin Acetaminophen 650 mg 03/09/24 11:27 Acetaminophen Elixir 325 Mg/10.15 Ml Udc PO Q4H PRN Mild Pain (1-3) or Fever Hydrocodone Bitart/Acetaminophen 1 tab 03/09/24 08:01 03/13/24 03:19 Hydrocodone/Acetaminophen (*Crx) 5-325 Mg Tablet PO 1 tab Q4H PRN Administration Pain Rated 4-6 Enoxaparin Sodium 40 mg 03/09/24 09:00 03/13/24 09:10 E
--- NOTE | 2024-03-13 12:02 | PM.IMPN ---
Progress Note: A&P Assessment and Plan (1) Septic shock: Code(s): A41.9 - Sepsis, unspecified organism; R65.21 - Severe sepsis with septic shock Status: Acute (2) UTI (urinary tract infection): Code(s): N39.0 - Urinary tract infection, site not specified Status: Acute (3) Hydronephrosis, left: Code(s): N13.30 - Unspecified hydronephrosis Status: Acute Plan Septic shock, Secondary to UTI, cystitis and left-sided pyelitis Patient also had 3 mm left ureteral stone with hydronephrosis now status post stent placement by Urology Empiric broad spectrum antibiotics with meropenem since in Blood and urine Cultures : no growth today Patient has received close to 6 L and will hold further IV fluids at this time Monitor urine output electrolytes and creatinine Her lactic acid level has normalized weaned off Levophed , and MAP > 65 Sepsis has resolved, patient is afebrile, blood pressure stable Patient has severe abdomen pain today, cloudy urine drained out. X-ray showed Bilateral internal ureteral stents in expected position with 5 mm at 4 mm stones projecting over the upper pole of the left kidney, no small bowel obstruction, 03/12 Intractable abdomen pain Intractable right upper quadrant abdomen pain, possible due to liver cancer Start MS Contin 30 mg b.i.d. p.o. Continue Dilaudid IV p.r.n. for breakthrough pain Endometrial carcinoma and a liver mass Code(s): C54.1 - Malignant neoplasm of endometrium Status: Acute Assessment and Plan: Liver biopsy is pending Patient has active vaginal bleeding And also has intractable right upper quadrant pain Consult tile finisher and oncologist for evaluation treatment Metabolic encephalopathy: Code(s): G93.41 - Metabolic encephalopathy Status: Acute Assessment and Plan: Resolved Patient now alert oriented x3 Head CT and ammonia level normal Monitor Electrolyte abnormality: Code(s): E87.8 - Other disorders of electrolyte and fluid balance, not elsewhere classified Status: Acute Assessment and Plan: Replace low potassium Corrected Hydronephrosis, left: Code(s): N13.30 - Unspecified hydronephrosis Status: Acute (5) Left ureteral stone: Code(s): N20.1 - Calculus of ureter Status: Acute Underwent cystoscopy with bilateral ureteral stent placement on 03/08/24 and tolerated this well. UTI (urinary tract infection): Code(s): N39.0 - Urinary tract infection, site not specified Status: Acute Pyelitis: Code(s): N12 - Tubulo-interstitial nephritis, not specified as acute or chronic Status: Acute Subjective Date/time seen: 03/13/24 12:02 Interval history: I saw exam patient today, patient still has severe right upper quadrant pain, patient has active bleeding from vagina, patient has no chest pain shortness of breath, blood pressure stable, patient still has dark red urine drained out from folic acid. Patient need frequent Dilaudid injection for releasing the pain Exam Narrative: GENERAL: Pleasant, in no acute distress. Well-nourished. - EYES: EOMI. Anicteric. - HENT: Moist mucous membranes. - LUNGS: Clear to auscultation bilaterally, no wheezing, rhonchi, or rales. - CARDIOVASCULAR: Regular rate and rhythm. No murmur. No JVD. - ABDOMEN: Soft, non-tender and non-distended. No palpable masses. - EXTREMITIES: No edema. Peripheral pulses 2+. Non-tender. - NEUROLOGIC: No focal neurological deficits. CN II-XII grossly intact. - PSYCHIATRIC: Awake, Alert and oriented x 3. Appropriate mood and affect. General weakness - SKIN: No rashes or lesions. Warm. - LYMPH: No cervical lymphadenopathy. Objective Data Vital Signs Vital Signs: Vital Signs - 24 hr 03/12/24 15:14 03/12/24 15:21 03/12/24 16:00 Temperature 98.1 F 98.1 F Pulse Rate 100 100 Respiratory Rate 20 20 Blood Pressure 128/74 128/74 Pulse Oximetr
[2024-03-13] MEDS: AMOXICILLIN/CLAVULANATE K 875-125 MG TAB 1 TABLET PO ×2 (12:53→20:52)
[2024-03-13 14:40] VITALS: BP 137/67; PULSE 99; RESP 20; TEMP 36.2; O2SAT 100
[2024-03-13] MEDS: MORPHINE SULFATE (*CRX) 30 MG TABCR PO (20:52)
[2024-03-13 23:09] VITALS: BP 118/61; PULSE 91; RESP 18; TEMP 36.4; O2SAT 97
[2024-03-14] VITALS (8 sets, daily range): BP systolic 109–137; BP diastolic 53–84; PULSE 60–116; RESP 12–20; TEMP 36.4–37.6; O2SAT 93–100
[2024-03-14] MEDS: HYDROmorphone HCL INJ (*CRX) 1 MG/ML SYR 0.5 MG IV PUSH (02:15)
--- NOTE | 2024-03-14 05:58 | WPDUROPN2 ---
Progress Note: A&P Assessment and Plan (1) Sepsis: Qualifiers: Sepsis type: sepsis due to unspecified organism Sepsis acute organ dysfunction status: with acute organ dysfunction Severe sepsis acute organ dysfunction type: encephalopathy Severe sepsis shock status: with septic shock Qualified Code(s): A41.9 - Sepsis, unspecified organism; R65.21 - Severe sepsis with septic shock; G93.41 - Metabolic encephalopathy Code(s): A41.9 - Sepsis, unspecified organism Status: Acute (2) Left ureteral stone: Code(s): N20.1 - Calculus of ureter Status: Acute (3) Bilateral hydronephrosis: Code(s): N13.30 - Unspecified hydronephrosis Status: Acute (4) Abnormal urinalysis: Code(s): R82.90 - Unspecified abnormal findings in urine Status: Acute Assessment and Plan: Repeat CT shows ureteral stones have passed with only small non-obstructing left kidney stones left. Ureteral stents seem not to be bothering her, can be removed at anytime. As her other issues/management becomes more clear we will arrange stent removal at an appropriate time. 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 Being managed by oncology. Underwent liver biopsy on 03/09/24, awaiting results Subjective Subjective Date/Time Seen: 03/14/24 05:58 Interval history: Resting, c/o mild epigastric discomfort Review of Systems Cardiovascular: Cardiovascular: Denies chest pain, Denies lightheadedness, Denies palpitations and Denies dyspnea Respiratory: Respiratory: Denies dyspnea Gastrointestinal: Gastrointestinal: Denies diarrhea, Denies nausea and Denies vomiting Genitourinary: Genitourinary: Denies hematuria and Denies dysuria Endocrine: Endocrine: Denies palpitations Exam Const: General: no acute distress Resp: Effort & Inspection: normal respiratory effort GI: Inspection: non-distended GI Palp: No abdominal tenderness and No Guarding due to palpation present (GI) Auscultation: normal bowel sounds Urinary Catheter: Urinary Catheter: patent and draining and urine clear Objective Data Vital Signs Vital Signs: Vital Signs - 24 hr 03/13/24 09:10 03/13/24 11:59 03/13/24 14:40 Temperature 97.2 F L Pulse Rate 99 Respiratory Rate 20 Blood Pressure 137/67 Pulse Oximetry 100 Oxygen Delivery Room Air Room Air 03/13/24 20:00 03/13/24 23:09 Temperature 97.5 F L Pulse Rate 91 Respiratory Rate 18 Blood Pressure 118/61 Pulse Oximetry 97 Oxygen Delivery Room Air Intake/Output Intake/Output: Intake & Output 03/11/24 03/12/24 03/13/24 03/14/24 23:59 23:59 23:59 23:59 Intake Total 1622 1170 1060 Output Total 725 850 600 Balance 897 320 460 Meds/Results Medications: Active Medications Generic Name Dose Route Start Last Admin Trade Name Freq PRN Reason Stop Dose Admin Acetaminophen 650 mg 03/09/24 11:27 Acetaminophen Elixir 325 Mg/10.15 Ml Udc PO Q4H PRN Mild Pain (1-3) or Fever Hydrocodone Bitart/Acetaminophen 1 tab 03/09/24 08:01 03/13/24 17:16 Hydrocodone/Acetaminophen (*Crx) 5-325 Mg Tablet PO 1 tab Q4H PRN Administration Pain Rated 4-6 Amoxicillin/Clavulanate Potassium 1 tablet 03/13/24 13:00 03/13/24 20:52 Amoxicillin/Clavulanate K 875-125 Mg Tab PO 03/17/24 21:01 1 tablet Q12HR TRINITY Administration Enoxaparin Sodium 40 mg 03/09/24 09:00 03/13/24 09:10 Enoxaparin 40 Mg/0.4 Ml Syringe SUB-Q 40 mg DAILY TRINITY Administration Ferrous Sulfate 325 mg 03/09/24 17:00 03/13/24 17:14 Ferrous Sulfate Liquid 325 Mg/7.4 Ml Elixir PO 325 mg BID TRINITY Administration Hydromorphone HCl 0.5 mg 03/09/24 08:02 03/14/24 02:15 Hydromorphone Hcl Inj (
--- NOTE | 2024-03-14 08:03 | PM.IMHP ---
H&P: HPI History of Present Illness Date/Time: 03/14/24 08:03 Chief Complaint: vaginal bleeding Narrative: 64 yo admitted with sepsis and known large pancreatic/liver mass. Also s/p ureteral stents for stones/blockage. Patient states she was told she has kidney cancer but I do not see prirmary diagnosis or biopsy proving this. Sepsis has resolved. Patient is significant pain in her abdomen. Nursing noted vaginal bleeding for past 2+days. Patient thought the blood was from hemorrhoids so no idea when bleeding actually began. Patient has no idea when she last saw a component prep operator doctor or had a pap test. CT scan with thickened endometrium of 21 mm. Discussed with patient could do hysteroscopy with D&C while admitted to determine why she is having vaginal bleeding. [facility] Past Medical History Medical History Abdominal mass large mass involving the perihepatic lymph node chain and left hepatic lobe, first seen on CT on 01/21/24 Social History Social History Spiritual care concerns: No Meds Home Medications and Allergies Home Medications Medication Instructions Recorded Confirmed Type No Home Medications 03/09/24 03/09/24 History Allergies Allergy/AdvReac Type Severity Reaction Status Date / Time No Known Allergies Allergy Verified 03/08/24 14:25 Vital Signs Vital Signs - 24 hr 03/13/24 09:10 03/13/24 11:59 03/13/24 14:40 Temperature 97.2 F L Pulse Rate 99 Respiratory Rate 20 Blood Pressure 137/67 Pulse Oximetry 100 Oxygen Delivery Room Air Room Air 03/13/24 20:00 03/13/24 23:09 Temperature 97.5 F L Pulse Rate 91 Respiratory Rate 18 Blood Pressure 118/61 Pulse Oximetry 97 Oxygen Delivery Room Air Exam Const: General: alert (somewhat confused) and awake Resp: Effort & Inspection: normal respiratory effort GI: GI Palp: Yes abdominal tenderness and Yes Firmness to palpation present (GI) : External Female Exam: normal external appearance and other (blood on inner thighs dried, no pad on but spotting on pad under patient) H&P: Results Labs Labs: Short CBC 03/13/24 Range/Units 08:19 WBC 21.7 H (4.5-10.0) K/mm3 Hgb 10.1 L (12.0-15.0) g/dL Hct 33.2 L (37.0-47.0) % Plt Count 173 (150-375) k/mm3 BMP 03/13/24 08:23 Sodium 136 L Potassium 4.3 Chloride 108 H Carbon Dioxide 23 BUN 15 Creatinine 0.50 L Glucose 99 Calcium 10.2 Assessment and Plan Assessment and plan (1) Post-menopausal bleeding: Code(s): N95.0 - Postmenopausal bleeding Status: Acute Assessment and Plan: Discussed possible causes with patient. If wants to proceed with D&C hysteroscopy will be able to add on late this afternoon. Dr. Arreguin informed of option and he will discuss with family and let me know. Given the patient presentation and large pancreatic/liver mass, I doubt endometrial carcinoma as the primary cancer. Endometrial carcinoma tends to spread by direct extension.
[2024-03-14] MEDS: ENOXAPARIN 40 MG/0.4 ML SYRINGE SUB-Q (09:08)
[2024-03-14] MEDS: MORPHINE SULFATE (*CRX) 30 MG TABCR PO ×2 (09:08→20:21)
[2024-03-14] MEDS: FERROUS SULFATE LIQUID 325 MG/7.4 ML ELIXIR PO (09:08)
[2024-03-14] MEDS: AMOXICILLIN/CLAVULANATE K 875-125 MG TAB 1 TABLET PO ×2 (09:08→20:21)
--- NOTE | 2024-03-14 10:56 | PM.IMPN ---
Progress Note: A&P Assessment and Plan (1) Septic shock: Code(s): A41.9 - Sepsis, unspecified organism; R65.21 - Severe sepsis with septic shock Status: Acute (2) UTI (urinary tract infection): Code(s): N39.0 - Urinary tract infection, site not specified Status: Acute (3) Hydronephrosis, left: Code(s): N13.30 - Unspecified hydronephrosis Status: Acute Plan Septic shock, Secondary to UTI, cystitis and left-sided pyelitis Patient also had 3 mm left ureteral stone with hydronephrosis now status post stent placement by Urology Empiric broad spectrum antibiotics with meropenem since in Blood and urine Cultures : no growth today Patient has received close to 6 L and will hold further IV fluids at this time Monitor urine output electrolytes and creatinine Her lactic acid level has normalized weaned off Levophed , and MAP > 65 Sepsis has resolved, patient is afebrile, blood pressure stable Patient has severe abdomen pain today, cloudy urine drained out. X-ray showed Bilateral internal ureteral stents in expected position with 5 mm at 4 mm stones projecting over the upper pole of the left kidney, no small bowel obstruction, 03/12 Leukocytosis persists, but patient is afebrile, but blood culture urine culture do not have bilateral growth. Follow-up procalcitonins: trending down to 1 yesterday c/w abx now Intractable abdomen pain Intractable right upper quadrant abdomen pain, possible due to liver cancer Start MS Contin 30 mg b.i.d. p.o. Continue Dilaudid IV p.r.n. for breakthrough pain Endometrial carcinoma and a liver mass Code(s): C54.1 - Malignant neoplasm of endometrium Status: Acute Assessment and Plan: Liver biopsy is pending Patient has active vaginal bleeding And also has intractable right upper quadrant pain Consult silver service waiter and oncologist for evaluation treatment Appreciate OBGYN consultation, musical string maker considers liver mass is unlikely related to do endometrial issue. Plan to proceed with D&C hysteroscopy. Metabolic encephalopathy: Code(s): G93.41 - Metabolic encephalopathy Status: Acute Assessment and Plan: Resolved Patient now alert oriented x3 Head CT and ammonia level normal Monitor Electrolyte abnormality: Code(s): E87.8 - Other disorders of electrolyte and fluid balance, not elsewhere classified Status: Acute Assessment and Plan: Replace low potassium Corrected Hydronephrosis, left: Code(s): N13.30 - Unspecified hydronephrosis Status: Acute (5) Left ureteral stone: Code(s): N20.1 - Calculus of ureter Status: Acute Underwent cystoscopy with bilateral ureteral stent placement on 03/08/24 and tolerated this well. UTI (urinary tract infection): Code(s): N39.0 - Urinary tract infection, site not specified Status: Acute Pyelitis: Code(s): N12 - Tubulo-interstitial nephritis, not specified as acute or chronic Status: Acute Subjective Date/time seen: 03/14/24 10:56 Interval history: I saw and examined the patient today, patient felt abdomen pain is better controlled, patient does not have appetite, denies chest pain, cough, shortness breath. Patient still has dark red urine drained out from Carty catheter, leukocytosis persists, afebrile Exam Narrative: GENERAL: Ill-appearing, in no acute distress. Well-nourished. - EYES: EOMI. Anicteric. - HENT: Moist mucous membranes. - LUNGS: Clear to auscultation bilaterally, no wheezing, rhonchi, or rales. - CARDIOVASCULAR: Regular rate and rhythm. No murmur. No JVD. - ABDOMEN: Soft, non-tender and non-distended. No palpable masses. Carty catheter in-situ, dark red blood drained out from Carty catheter - EXTREMITIES: No edema. Peripheral pulses 2+. Non-tender. - NEUROLOGIC: No focal neurological deficits. CN II-XII grossly intact. - PSYCHIATRIC: Awake, Alert and oriented x 3. Approp
--- NOTE | 2024-03-14 13:03 | PM.GYNPNOP ---
PERSONAL LINES ADVISOR - A/P Assessment and plan (1) Post-menopausal bleeding: Code(s): N95.0 - Postmenopausal bleeding Status: Acute Assessment and Plan: Plan to proceed with D&C hysteroscopy. Risks of infection, bleeding, perforation, and possible pathology are discussed with the patient again as well as her daughter. Will proceed as an add on case this evening. Postoperative Procedures: Procedures Operation Date: 03/08/24 15:00 Actual Procedure Side Surgeon p Cystoscopy, Bilateral Retrograde Pyelogram, Bilateral Stent Placement Bilateral Ike Ivy MD Operation Date: 03/14/24 17:45 <No data on this case meets the specified criteria> Time Spent With Patient Time: Total time spent is greater than 50% in coordination of care (as documented) at patient's floor/unit and/or counseling patient: Time with patient: less than 15 minutes PERSONAL LINES ADVISOR- PN:Subj Post-Op Subjective Date/time seen: 03/14/24 13:03 Interval history: Family at bedside including daughter. Reviewed information from this morning with the daughter. Daughter prefers to have a D&C hysteroscopy for diagnosis. PERSONAL LINES ADVISOR - PN: Obj Data Vital Signs Vital Signs: Vital Signs - 24 hr 03/13/24 14:40 03/13/24 20:00 03/13/24 23:09 Temperature 97.2 F L 97.5 F L Pulse Rate 99 91 Respiratory Rate 20 18 Blood Pressure 137/67 118/61 Pulse Oximetry 100 97 Oxygen Delivery Room Air 03/14/24 06:00 Temperature 97.9 F Pulse Rate 94 Respiratory Rate 20 Blood Pressure 126/53 L Pulse Oximetry 98 Oxygen Delivery Intake/Output Intake/Output: Intake & Output 03/11/24 03/12/24 03/13/24 03/14/24 23:59 23:59 23:59 23:59 Intake Total 1622 1170 1060 320 Output Total 725 850 600 400 Balance 897 320 460 -80 Meds/Results Medications: Active Medications Generic Name Dose Route Start Last Admin Trade Name Freq PRN Reason Stop Dose Admin Acetaminophen 650 mg 03/09/24 11:27 Acetaminophen Elixir 325 Mg/10.15 Ml Udc PO Q4H PRN Mild Pain (1-3) or Fever Hydrocodone Bitart/Acetaminophen 1 tab 03/09/24 08:01 03/13/24 17:16 Hydrocodone/Acetaminophen (*Crx) 5-325 Mg Tablet PO 1 tab Q4H PRN Administration Pain Rated 4-6 Amoxicillin/Clavulanate Potassium 1 tablet 03/13/24 13:00 03/14/24 09:08 Amoxicillin/Clavulanate K 875-125 Mg Tab PO 03/17/24 21:01 1 tablet Q12HR TRINITY Administration Enoxaparin Sodium 40 mg 03/09/24 09:00 03/14/24 09:08 Enoxaparin 40 Mg/0.4 Ml Syringe SUB-Q 40 mg DAILY TRINITY Administration Ferrous Sulfate 325 mg 03/09/24 17:00 03/14/24 09:08 Ferrous Sulfate Liquid 325 Mg/7.4 Ml Elixir PO 325 mg BID TRINITY Administration Hydromorphone HCl 0.5 mg 03/09/24 08:02 03/14/24 02:15 Hydromorphone Hcl Inj (*Crx) 1 Mg/Ml Syr IV PUSH 0.5 mg Q3H PRN Administration Pain Rated 7-10 Morphine Sulfate 30 mg 03/13/24 21:00 03/14/24 09:08 Morphine Sulfate (*Crx) 30 Mg Tabcr PO 30 mg Q12HR TRINITY Administration Ondansetron HCl 4 mg 03/08/24 12:56 Ondansetron Inj 4 Mg/2 Ml Vial IV PUSH Q4H PRN Nausea Sodium Chloride 20 ml 03/09/24 01:36 Central Line Flush IV PUSH PRN PRN after blood draws Radiology Results: ITS Impressions Head CT 03/08/24 11:35 IMPRESSION: 1. Normal aging brain. Abdomen/Pelvis CT 03/08/24 11:44 IMPRESSION: 1. 3 mm stone in distal left ureter with mild left hydronephrosis and hydroureter. Cystitis and left-sided pyelitis. 2. Large mass involving the perihepatic lymph node chain and left hepatic lobe, consistent with metastatic disease. 3. Small volume of ascites. 4. Thickened endometrial complex suspicious for endometrial carcinoma. 5. Mild splenomegaly. Retrograde Pyelogram 03/08/24 16:53 IMPRESSION: 1. Bilateral internal ureteral stent placement. Please refer to real-time procedural findings for details. Liver Biopsy CT 03/09/24 12:21 IMPRESSION: 1. CT-guided core needle biopsy
--- NOTE | 2024-03-14 16:38 | WPDHPUPDATE1 ---
History and Physical Update Update Date/Time: 03/14/24 16:38 History and Physical has been reviewed, including an updated exam of the patient. There are NO changes in the patient's condition. Risks, benefits, and alternatives have been discussed and questions answered. Patient agrees to proceed with procedure.
--- NOTE | 2024-03-14 16:45 | PC.NURSE ---
Patient moved to pre-op at 1645.
--- NOTE | 2024-03-14 17:17 | P.PNAN_ITS ---
Anes - Initial Pre Proc Eval Procedure: Operation Date: 03/14/24 17:45 Proposed Procedures p Hysteroscopy, Dilation and Curettage - Dalila Reyes MD Date/Time: 03/14/24 17:17 Surgeon: Amy Pre Op Diagnosis: ABDOMINAL PAIN Patient Data Age: 64 Gender: F Height: 1.78 m Weight: 89 kg Last Vital Signs Temp 37.6 C H 03/14/24 16:58 Pulse 115 H 03/14/24 16:58 Resp 18 03/14/24 16:00 BP 133/84 03/14/24 16:58 Pulse Ox 93 03/14/24 16:58 O2 Del Method Room Air 03/14/24 16:58 O2 Flow Rate 8 03/08/24 15:55 Allergies Allergy/AdvReac Type Severity Reaction Status Date / Time No Known Allergies Allergy Verified 03/08/24 14:25 Home Medications Medication Instructions Recorded Confirmed Type No Home Medications 03/09/24 03/09/24 History Patient hx anesthesia problems: none Family hx anesthesia problems: none Results Review: All pre-operative results and documents have been reviewed as part of the pre- operative evaluation. [facility] Past Medical History Medical History Abdominal mass large mass involving the perihepatic lymph node chain and left hepatic lobe, first seen on CT on 01/21/24 Social History Social History Spiritual care concerns: No Anes - Eval Final PreProcedure Day of Procedure 03/14/24 17:17 Patient weight: overweight Heart: regular rate and rhythm Lungs: clear to auscultation Airway: Mallampati scale class III Neurological: alert and oriented Last oral intake: >/= 8 hours ASA classification: IV Emergent: no Anesthetic plan: proceed Anesthesia type and monitoring: general GIVS and standard monitoring Results Review: All pre-operative results and documents have been reviewed as part of the pre- operative evaluation. Informed Consent: The patient's anesthetic plan and its attendant risks and benefits were discussed with the patient/family/POA. Questions were solicited and answers provided to the satisfaction of the patient/family/POA.
[2024-03-14] MEDS: LACTATED RINGERS 1,000 ML 30 ML IV CONT (17:42)
--- NOTE | 2024-03-14 18:10 | W.PM.PROC2 ---
Procedure Note - Detailed Date of Procedure 03/14/24 Pre-op Diagnosis postmenopausal bleeding thickened endometrium Post-op Diagnosis Same Procedure Performed D&C hysteroscopy Surgeon Dalila Reyes MD Anesthesia MAC Findings The uterus sounds to 10cm there is a large mass on a stalk filling the majority of the cavity. It is round and appears to be vascular . The remainder of the endometrium appears grossly normal and atrophic. Description of Procedure The patient is taken to the operating room and placed under anesthesia in the dorsal lithotomy position. She was prepped and draped in usual sterile fashion. [place] speculum was placed in the vagina and the cervix grasped on the anterior lip with a tenaculum. The uterus is sounded to 10cm. The hysteroscope was placed and with the above-stated findings the flex resection blade was placed. Under direct visualization the mass was removed in its entirety. The hysteroscope was removed and the uterus was curetted in a sharp manner until a good uterine cry was noted in all areas. Minimal additional material was obtained consistent with the atrophic appearance. All instruments are removed. Sponge, needle, and instrument counts are correct per the OR staff. The patient was awakened from anesthesia and taken to recovery in stable condition. Estimated Blood Loss 5 Urine Output 375 Drains Yes ( Carty catheter) Packing No Pathology Yes ( endometrial shavings and curettings) Complications No immediate complications Condition Stable Disposition PACU
--- NOTE | 2024-03-14 18:51 | PC.NURSE ---
Patient back to unit at 1851.
[2024-03-15 06:10] VITALS: BP 101/84; PULSE 83; RESP 20; TEMP 36.1; O2SAT 99
--- NOTE | 2024-03-15 07:34 | PM.GYNPNOP ---
M60A2 ARMOR CREWMAN - A/P Postoperative Procedures: Procedures Operation Date: 03/08/24 15:00 Actual Procedure Side Surgeon p Cystoscopy, Bilateral Retrograde Pyelogram, Bilateral Stent Placement Bilateral Ike Ivy MD Operation Date: 03/14/24 17:45 Actual Procedure Side Surgeon p Hysteroscopy, Dilation and Curettage Not Applicable Dalila Reyes MD Postoperative day: 1 Postoperative status: other (Minimal bleeding. Pathology pending but likely unrelated to abdominal pathology.) Time Spent With Patient Time: Total time spent is greater than 50% in coordination of care (as documented) at patient's floor/unit and/or counseling patient: Time with patient: less than 15 minutes [id number] ARMOR CREWMAN- PN:Subj Post-Op Subjective Date/time seen: 03/15/24 07:34 Interval history: Per patient no heavy bleeding overnight (RN confirms). Exam Narrative: peripad with minimal dark blood M60A2 ARMOR CREWMAN - PN: Obj Data Vital Signs Vital Signs: Vital Signs - 24 hr 03/14/24 08:30 03/14/24 16:00 03/14/24 16:58 Temperature 98.3 F 99.7 F H Pulse Rate 60 115 H Respiratory Rate 18 Blood Pressure 136/73 133/84 Pulse Oximetry 93 93 Oxygen Delivery Room Air Room Air 03/14/24 18:09 03/14/24 18:20 03/14/24 18:35 Temperature 98.8 F Pulse Rate 106 H 101 H 102 H Respiratory Rate 13 12 12 Blood Pressure 109/61 109/63 118/67 Pulse Oximetry 95 94 93 Oxygen Delivery Room Air Room Air Room Air 03/14/24 18:55 03/14/24 20:00 03/14/24 22:51 Temperature 97.6 F 97.5 F L Pulse Rate 109 H 116 H Respiratory Rate 18 20 Blood Pressure 137/74 130/73 Pulse Oximetry 100 98 Oxygen Delivery Room Air Intake/Output Intake/Output: Intake & Output 03/12/24 03/13/24 03/14/24 03/15/24 23:59 23:59 23:59 23:59 Intake Total 1170 1060 420 Output Total 206 886 5692 Balance 320 460 -605 Meds/Results Medications: Active Medications Generic Name Dose Route Start Last Admin Trade Name Freq PRN Reason Stop Dose Admin Acetaminophen 650 mg 03/09/24 11:27 Acetaminophen Elixir 325 Mg/10.15 Ml Udc PO Q4H PRN Mild Pain (1-3) or Fever Hydrocodone Bitart/Acetaminophen 1 tab 03/09/24 08:01 03/13/24 17:16 Hydrocodone/Acetaminophen (*Crx) 5-325 Mg Tablet PO 1 tab Q4H PRN Administration Pain Rated 4-6 Amoxicillin/Clavulanate Potassium 1 tablet 03/13/24 13:00 03/14/24 20:21 Amoxicillin/Clavulanate K 875-125 Mg Tab PO 03/17/24 21:01 1 tablet Q12HR TRINITY Administration Enoxaparin Sodium 40 mg 03/09/24 09:00 03/14/24 09:08 Enoxaparin 40 Mg/0.4 Ml Syringe SUB-Q 40 mg DAILY TRINITY Administration Ferrous Sulfate 325 mg 03/09/24 17:00 03/14/24 17:09 Ferrous Sulfate Liquid 325 Mg/7.4 Ml Elixir PO Not Given BID TRINITY Hydromorphone HCl 0.5 mg 03/09/24 08:02 03/14/24 02:15 Hydromorphone Hcl Inj (*Crx) 1 Mg/Ml Syr IV PUSH 0.5 mg Q3H PRN Administration Pain Rated 7-10 Morphine Sulfate 30 mg 03/13/24 21:00 03/14/24 20:21 Morphine Sulfate (*Crx) 30 Mg Tabcr PO 30 mg Q12HR TRINITY Administration Ondansetron HCl 4 mg 03/08/24 12:56 Ondansetron Inj 4 Mg/2 Ml Vial IV PUSH Q4H PRN Nausea Sodium Chloride 20 ml 03/09/24 01:36 Central Line Flush IV PUSH PRN PRN after blood draws Radiology Results: ITS Impressions Head CT 03/08/24 11:35 IMPRESSION: 1. Normal aging brain. Abdomen/Pelvis CT 03/08/24 11:44 IMPRESSION: 1. 3 mm stone in distal left ureter with mild left hydronephrosis and hydroureter. Cystitis and left-sided pyelitis. 2. Large mass involving the perihepatic lymph node chain and left hepatic lobe, consistent with metastatic disease. 3. Small volume of ascites. 4. Thickened endometrial complex suspicious for endometrial carcinoma. 5. Mild splenomegaly. Retrograde Pyelogram 03/08/24 16:53 IMPRESSION: 1. Bilateral internal ureteral stent placement. Please refer to real-time procedural findings for details.
[2024-03-15] MEDS: ENOXAPARIN 40 MG/0.4 ML SYRINGE SUB-Q (09:12)
[2024-03-15] MEDS: MORPHINE SULFATE (*CRX) 30 MG TABCR PO ×2 (09:12→21:03)
[2024-03-15] MEDS: FERROUS SULFATE LIQUID 325 MG/7.4 ML ELIXIR PO ×2 (09:12→17:26)
[2024-03-15] MEDS: AMOXICILLIN/CLAVULANATE K 875-125 MG TAB 1 TABLET PO ×2 (09:12→21:04)
--- NOTE | 2024-03-15 09:13 | PM.IMPN ---
Progress Note: A&P Assessment and Plan (1) Septic shock: Code(s): A41.9 - Sepsis, unspecified organism; R65.21 - Severe sepsis with septic shock Status: Acute (2) UTI (urinary tract infection): Code(s): N39.0 - Urinary tract infection, site not specified Status: Acute (3) Hydronephrosis, left: Code(s): N13.30 - Unspecified hydronephrosis Status: Acute Plan Septic shock, Secondary to UTI, cystitis and left-sided pyelitis Patient also had 3 mm left ureteral stone with hydronephrosis now status post stent placement by Urology Empiric broad spectrum antibiotics with meropenem since in Blood and urine Cultures : no growth today Patient has received close to 6 L and will hold further IV fluids at this time Monitor urine output electrolytes and creatinine Her lactic acid level has normalized weaned off Levophed , and MAP > 65 Sepsis has resolved, patient is afebrile, blood pressure stable Patient has severe abdomen pain today, cloudy urine drained out. X-ray showed Bilateral internal ureteral stents in expected position with 5 mm at 4 mm stones projecting over the upper pole of the left kidney, no small bowel obstruction, 03/12 Leukocytosis persists, but patient is afebrile, but blood culture urine culture do not have bilateral growth. Follow-up procalcitonins: trending down to 1 c/w abx now Leukocytosis likely secondary to infection and also reaction to the cancer Intractable abdomen pain Intractable right upper quadrant abdomen pain, possible due to liver cancer Start MS Contin 30 mg b.i.d. p.o. Continue Dilaudid IV p.r.n. for breakthrough pain Pain is well controlled Endometrial carcinoma and a liver mass Code(s): C54.1 - Malignant neoplasm of endometrium Status: Acute Assessment and Plan: Liver biopsy is pending Patient has active vaginal bleeding And also has intractable right upper quadrant pain Consult small brake form operator and oncologist for evaluation treatment Appreciate OBGYN consultation, configuration management consultant considers liver mass is unlikely related to do endometrial issue. D&C hysteroscopy per erp developer Follow-up heme oncologist consultation Metabolic encephalopathy: Code(s): G93.41 - Metabolic encephalopathy Status: Acute Assessment and Plan: Resolved Patient now alert oriented x3 Head CT and ammonia level normal Monitor Electrolyte abnormality: Code(s): E87.8 - Other disorders of electrolyte and fluid balance, not elsewhere classified Status: Acute Assessment and Plan: Replace low potassium Corrected Hydronephrosis, left: Code(s): N13.30 - Unspecified hydronephrosis Status: Acute (5) Left ureteral stone: Code(s): N20.1 - Calculus of ureter Status: Acute Underwent cystoscopy with bilateral ureteral stent placement on 03/08/24 and tolerated this well. UTI (urinary tract infection): Code(s): N39.0 - Urinary tract infection, site not specified Status: Acute Pyelitis: Code(s): N12 - Tubulo-interstitial nephritis, not specified as acute or chronic Status: Acute Subjective Date/time seen: 03/15/24 09:13 Interval history: I saw and examined the patient today, pain is well controlled, appetite is improving, denies chest pain, cough, shortness breath. Patient still has dark red urine drained out from Carty catheter, leukocytosis persists, afebrile Exam Narrative: GENERAL: Ill-appearing, in no acute distress. Well-nourished. - EYES: EOMI. Anicteric. - HENT: Moist mucous membranes. - LUNGS: Clear to auscultation bilaterally, no wheezing, rhonchi, or rales. - CARDIOVASCULAR: Regular rate and rhythm. No murmur. No JVD. - ABDOMEN: Soft, non-tender and non-distended. No palpable masses. Carty catheter in-situ, dark red blood drained out from Carty catheter - EXTREMITIES: No edema. Peripheral pulses 2+. Non-tender. - NEUROLOGIC: No focal neurological defici
[2024-03-15 09:43] VITALS: BP 120/57; PULSE 86; RESP 18; TEMP 36.2; O2SAT 99
[2024-03-15 09:48] LABS: Basophils Absolute Auto 0.1 K/mm3 (0.0-0.1); Basophils Percent Auto 0.3 % (0.2-1.2); Hematocrit 34.9 % (37.0-47.0); Hemoglobin 10.9 g/dL (12.0-15.0); Immature Granulocyte Percent A 0.9 % (0-0.5); Lymphocytes Absolute Auto 1.08 K/mm3 (0.9-3.2); Lymphocytes Percent Auto 5.1 % (18.3-44.2); Mean Corpuscular HGB Conc 31.2 g/dl (32-36); Mean Corpuscular Hemoglobin 29.4 pg (26-34); Mean Corpuscular Volume 94.1 fl (80-100); Mean Platelet Volume 9.4 fl (7.4-10.4); Monocytes Absolute Auto 0.7 K/mm3 (0.1-0.6); Monocytes Percent Auto 3.3 % (2.6-8.5); Neutrophils Absolute Auto 19.2 K/mm3 (1.3-6.7); Neutrophils Percent Auto 90.4 % (45.5-73.1); Platelet Count Result 187 k/mm3 (150-375); Red Blood Count 3.71 M/mm3 (4.2-5.4); Red Cell Distribution Width 17.2 % (11.5-14.5); White Blood Count 21.3 K/mm3 (4.5-10.0)
--- NOTE | 2024-03-15 10:38 | PCNFU ---
Nutrition Follow-Up Complete: Inadequate Oral Intake as related to ab pain/mass as evidenced by poor po intake reported. goal: Meet estimated nutritional needs. Patient has limited progress towards goal. We will continue current goal. Pt current nutrition is Regular with Ensure Enlive BID. Last recorded weight is 84.2 kg, down from 87.5 kg on admit. Bowel Motility: No BM reported. Labs Reviewed: No labs reported today. Meds Noted: Lovenox, Augmentin, Ferrous Sulfate Skin: WNL Additional Notes: Patient remains on a regular diet. Intake has been poor, 0-25% reported. Patient continues to receive Ensue Enlive TID providing an additional 350 kcal and 20 gm protein. PO Intake encouraged. Agree with diet orders. Will monitor weight, labs, skin, oral intake, meds every 5 days.
--- NOTE | 2024-03-15 14:45 | WPDUROPN2 ---
Progress Note: A&P Assessment and Plan (1) Sepsis: Qualifiers: Sepsis type: sepsis due to unspecified organism Sepsis acute organ dysfunction status: with acute organ dysfunction Severe sepsis acute organ dysfunction type: encephalopathy Severe sepsis shock status: with septic shock Qualified Code(s): A41.9 - Sepsis, unspecified organism; R65.21 - Severe sepsis with septic shock; G93.41 - Metabolic encephalopathy Code(s): A41.9 - Sepsis, unspecified organism Status: Acute (2) Left ureteral stone: Code(s): N20.1 - Calculus of ureter Status: Acute (3) Bilateral hydronephrosis: Code(s): N13.30 - Unspecified hydronephrosis Status: Acute (4) Abnormal urinalysis: Code(s): R82.90 - Unspecified abnormal findings in urine Status: Acute (5) Metastatic disease: Code(s): C79.9 - Secondary malignant neoplasm of unspecified site Status: Acute Assessment and Plan: Noted to have hepatic mass and lymphadenopathy consistent with metastatic disease as well as suspected endometrial carcinoma with ascites. Being managed by oncology. Underwent liver biopsy on 03/09/24, awaiting results Plan Repeat CT shows ureteral stones have passed with only small non-obstructing left kidney stones left. No issues with bilateral ureteral stents; will plan for removal when appropriate timing dependent on her hospital course/other medical issues Subjective Subjective Date/Time Seen: 03/15/24 14:45 Interval history: Doing fair today. Complains of abdominal pain and bloating. No issues with chang catheter. Denies nausea, vomiting, fever, chills. Review of Systems Review of Systems: All systems reviewed & are unremarkable except as noted in HPI and below Exam Narrative: General: Awake, alert, slightly confused, appears comfortable HEENT: Normocephalic, atraumatic, sclerae anicteric Respiratory: Normal respiratory effort, no accessory muscle use Abdomen: Distended, soft, nontender : Chang catheter draining mikala colored urine Skin: Normal coloration, warm and dry Neurologic: No focal neuro deficits noted Psychiatric: Appropriate mood and affect, judgment and insight fair Objective Data Vital Signs Vital Signs: Vital Signs - 24 hr 03/14/24 16:00 03/14/24 16:58 03/14/24 18:09 Temperature 98.3 F 99.7 F H 98.8 F Pulse Rate 60 115 H 106 H Respiratory Rate 18 13 Blood Pressure 136/73 133/84 109/61 Pulse Oximetry 93 93 95 Oxygen Delivery Room Air Room Air 03/14/24 18:20 03/14/24 18:35 03/14/24 18:55 Temperature 97.6 F Pulse Rate 101 H 102 H 109 H Respiratory Rate 12 12 18 Blood Pressure 109/63 118/67 137/74 Pulse Oximetry 94 93 100 Oxygen Delivery Room Air Room Air 03/14/24 20:00 03/14/24 22:51 03/15/24 06:10 Temperature 97.5 F L 97.0 F L Pulse Rate 116 H 83 Respiratory Rate 20 20 Blood Pressure 130/73 101/84 Pulse Oximetry 98 99 Oxygen Delivery Room Air 03/15/24 08:00 03/15/24 09:43 Temperature 97.2 F L Pulse Rate 86 Respiratory Rate 18 Blood Pressure 120/57 L Pulse Oximetry 99 Oxygen Delivery Room Air Intake/Output Intake/Output: Intake & Output 03/12/24 03/13/24 03/14/24 03/15/24 23:59 23:59 23:59 23:59 Intake Total 1170 1060 420 580 Output Total 393 990 3484 500 Balance 320 460 -605 80 Meds/Results Medications: Active Medications Generic Name Dose Route Start Last Admin Trade Name Brandinq PRN Reason Stop Dose Admin Acetaminophen 650 mg 03/09/24 11:27 Acetaminophen Elixir 325 Mg/10.15 Ml Udc PO Q4H PRN Mild Pain (1-3) or Fever Hydrocodone Bitart/Acetaminophen 1 tab 03/09/24 08:01 03/13/24 17:16 Hydrocodone/Acetaminophen (*Crx) 5-325 Mg Tablet PO 1 tab Q4H PRN Administration Pain Rated 4-6 Amoxicillin/Clavulanate Potassium 1 tablet 03/13/24 13:00 03/15/24 09:12 Amoxicillin/Clavulanate K 875-125 Mg Tab PO 03/17/24 21:01 1 tablet Q12HR [facility]
[2024-03-15] MEDS: ACETAMINOPHEN ELIXIR 325 MG/10.15 ML UDC 650 MG PO (17:27)
[2024-03-15 18:17] VITALS: BP 120/76; PULSE 73; RESP 15; TEMP 36.6; O2SAT 98
--- NOTE | 2024-03-15 18:21 | WPDONCPN ---
Progress Note: A/P (1) Anemia Code(s): D64.9 - Anemia, unspecified Status: Acute (2) Metastatic disease Code(s): C79.9 - Secondary malignant neoplasm of unspecified site Status: Acute - Additional Plan Metastatic carcinoma of unknown primary status post liver biopsy done on March 09, 2024. Pathology showed carcinoma of unknown primary. Patient also had D and C and hysteroscopy done on March 14. There was 10 cm large mass in the uterus. Biopsy was performed and pathology is pending. CA 125 was elevated at 306. I am concerned about metastatic endometrial cancer with liver metastasis. I will order tempus next generation sequencing as an outpatient. Will order MediPort placement in order to start chemotherapy as an outpatient. I have discussed this in detail with patient and the daughter. UTI status post cystoscopy and bilateral ureteral stent insertion. Patient is on broad-spectrum antibiotic. Abdominal pain. Likely secondary to metastatic cancer. Patient is on MS Contin and seems to be comfortable. Patient will follow-up in the office next week after MediPort placement. Hao Perry MD - Time Spent With Patient Total time spent is greater than 50% in coordination of care (as documented) at patient's floor/unit and/or counseling patient: 25 - 35 minutes Subjective Interval history: Carcinoma of unknown primary Review of Systems - Review of Systems Patient lying in the bed in seems to be comfortable. She is on her pain medication. She has some abdominal distension and bloating. According to the nursing staff she has been moving around well with a walker. No nausea vomiting. No chest pain and shortness of breath. Exam Vital signs: Temp Pulse Resp BP Pulse Ox O2 Del Method O2 Flow Rate 36.6 C 73 15 120/76 98 Room Air 8 03/15/24 18:17 03/15/24 18:17 03/15/24 18:17 03/15/24 18:17 03/15/24 18:17 03/15/24 08:00 03/08/24 15:55 Narrative: Lungs are clear to auscultation bilaterally Cardiovascular regular rate rhythm no murmurs Abdomen distended with possible some ascites bowel sounds are positive Extremities no edema PN: Objective Data - Labs CBC & Chem 7: 03/15/24 09:31 03/13/24 08:23 Labs: Laboratory Results - last 24 hr 03/15/24 09:31 WBC 21.3 H RBC 3.71 L Hgb 10.9 L Hct 34.9 L MCV 94.1 MCH 29.4 MCHC 31.2 L RDW 17.2 H Plt Count 187 MPV 9.4 Immature Gran % (Auto) 0.9 H Neut % (Auto) 90.4 H Lymph % (Auto) 5.1 L [place] % (Auto) 3.3 Eos % (Auto) 0.0 Baso % (Auto) 0.3 Lymph # (Auto) 1.08 [place] # (Auto) 0.7 H Eos # (Auto) 0.0 Baso # (Auto) 0.1 Abs Immat Gran (auto) 0.20 H Absolute Neuts (auto) 19.2 H Absolute Nucleated RBC 0.000 Nucleated RBC % 0.0
[2024-03-15 21:19] VITALS: BP 124/67; PULSE 102; RESP 18; TEMP 36.3; O2SAT 97
[2024-03-16 04:57] VITALS: BP 132/63; PULSE 75; RESP 20; TEMP 36.3; O2SAT 98
[2024-03-16 05:34] LABS: Basophils Absolute Auto 0.1 K/mm3 (0.0-0.1); Basophils Percent Auto 0.3 % (0.2-1.2); Eosinophils Absolute Auto 0.1 K/mm3 (0-0.3); Eosinophils Percent Auto 0.3 % (0-4.4); Hematocrit 35.1 % (37.0-47.0); Hemoglobin 10.7 g/dL (12.0-15.0); Immature Granulocyte Absolute 0.16 K/mm3 (0.00-0.031); Immature Granulocyte Percent A 0.8 % (0-0.5); Lymphocytes Absolute Auto 1.74 K/mm3 (0.9-3.2); Lymphocytes Percent Auto 8.6 % (18.3-44.2); Mean Corpuscular HGB Conc 30.5 g/dl (32-36); Mean Corpuscular Hemoglobin 28.8 pg (26-34); Mean Corpuscular Volume 94.4 fl (80-100); Mean Platelet Volume 9.6 fl (7.4-10.4); Monocytes Absolute Auto 0.7 K/mm3 (0.1-0.6); Monocytes Percent Auto 3.5 % (2.6-8.5); Neutrophils Absolute Auto 17.5 K/mm3 (1.3-6.7); Neutrophils Percent Auto 86.5 % (45.5-73.1); Platelet Count Result 206 k/mm3 (150-375); Red Blood Count 3.72 M/mm3 (4.2-5.4); Red Cell Distribution Width 17.2 % (11.5-14.5); White Blood Count 20.2 K/mm3 (4.5-10.0)
--- NOTE | 2024-03-16 08:17 | PM.CNGS ---
Assessment and Plan Assessment and plan (1) Metastatic disease: Code(s): C79.9 - Secondary malignant neoplasm of unspecified site Status: Acute Assessment and Plan: Will set up for urgent placement of MediPort to allow initiation of chemotherapy History of Present Illness Consult details Consult date: 03/16/24 Reason for consult: other ( MediPort placement for chemotherapy access) Requesting physician: Hao Perry MD Narrative: The patient is a 64-year-old female presenting to the hospital for abdominal pain, progressive weakness. The patient has since been admitted to the hospitalist service and further workup has yielded metastatic cancer to the liver of unknown primary. The patient was also found to have a 10 cm uterine mass that is currently being worked up. Given these findings, it has been recommended that the patient received urgent chemotherapy. We were consulted for MediPort placement to allow initiation of chemotherapy. The patient denies any previous central venous catheterization. Review of Systems Review of Systems: All systems reviewed & are unremarkable except as noted in HPI and below PMFSH Past Medical History Medical History Abdominal mass large mass involving the perihepatic lymph node chain and left hepatic lobe, first seen on CT on 01/21/24 Social History Social History Spiritual care concerns: No Meds Home Medications and Allergies Home Medications Medication Instructions Recorded Confirmed Type No Home Medications 03/09/24 03/09/24 History Allergies Allergy/AdvReac Type Severity Reaction Status Date / Time No Known Allergies Allergy Verified 03/08/24 14:25 Vital Signs Vital Signs - 24 hr 03/15/24 09:43 03/15/24 18:17 03/15/24 21:19 Temperature 36.2 C L 36.6 C 36.3 C L Pulse Rate 86 73 102 H Respiratory Rate 18 15 18 Blood Pressure 120/57 L 120/76 124/67 Pulse Oximetry 99 98 97 Oxygen Delivery 03/15/24 20:00 03/16/24 04:57 Temperature 36.3 C L Pulse Rate 75 Respiratory Rate 20 Blood Pressure 132/63 Pulse Oximetry 98 Oxygen Delivery Room Air Exam Const: General: cooperative, no acute distress, ill appearing, tired appearing and uncomfortable HENMT: Head: normal to inspection, normocephalic and atraumatic Eyes: General: appearance normal, both eyes and all related structures Neck: Neck: normal visual inspection, full ROM and no lymphadenopathy Chest: Chest palpation & inspection: normal inspection of the chest Resp: Auscultation: clear to auscultation bilaterally Cardio: Rate: regular rate Rhythm: regular rhythm GI: Inspection: normal to inspection and distended GI Palp: Yes abdominal tenderness, Yes Soft to palpation, Yes Tenderness to palpation present (GI), No Guarding due to palpation present (GI) and No Rigid due to palpation Skin: General skin exam: normal color and no rashes or lesions noted Neuro: General: patient oriented x3 and CN's II-XI intact bilaterally Extrem: General: normal to inspection and full ROM Results Labs 03/16/24 04:52 03/13/24 08:23 Labs: Abnormal lab results 03/15/24 03/16/24 Range/Units 09:31 04:52 WBC 21.3 H 20.2 H (4.5-10.0) K/mm3 RBC 3.71 L 3.72 L (4.2-5.4) M/mm3 Hgb 10.9 L 10.7 L (12.0-15.0) g/dL Hct 34.9 L 35.1 L (37.0-47.0) % MCHC 31.2 L 30.5 L (32-36) g/dl RDW 17.2 H 17.2 H (11.5-14.5) % Immature Gran % (Auto) 0.9 H 0.8 H (0-0.5) % Neut % (Auto) 90.4 H 86.5 H (45.5-73.1) % Lymph % (Auto) 5.1 L 8.6 L (18.3-44.2) % [place] # (Auto) 0.7 H 0.7 H (0.1-0.6) K/mm3 Abs Immat Gran (auto) 0.20 H 0.16 H (0.00-0.031) K/mm3 Absolute Neuts (auto) 19.2 H 17.5 H (1.3-6.7) K/mm3 All other labs normal. Imaging Abdomen CT scan report/results: report reviewed and image reviewed
[2024-03-16] MEDS: AMOXICILLIN/CLAVULANATE K 875-125 MG TAB 1 TABLET PO ×2 (08:38→20:59)
[2024-03-16] MEDS: MORPHINE SULFATE (*CRX) 30 MG TABCR PO ×2 (08:41→20:59)
[2024-03-16] MEDS: FERROUS SULFATE LIQUID 325 MG/7.4 ML ELIXIR PO (08:42)
[2024-03-16] MEDS: polyethylene glycoL 3350 17 GM POWD.PACK PO (11:52)
[2024-03-16 14:00] VITALS: BP 122/73; PULSE 99; RESP 18; TEMP 37; O2SAT 99
--- NOTE | 2024-03-16 15:17 | PM.IMPN ---
Progress Note: A&P Assessment and Plan (1) Septic shock: Code(s): A41.9 - Sepsis, unspecified organism; R65.21 - Severe sepsis with septic shock Status: Acute (2) UTI (urinary tract infection): Code(s): N39.0 - Urinary tract infection, site not specified Status: Acute (3) Hydronephrosis, left: Code(s): N13.30 - Unspecified hydronephrosis Status: Acute Plan Septic shock, Secondary to UTI, cystitis and left-sided pyelitis Patient also had 3 mm left ureteral stone with hydronephrosis now status post stent placement by Urology Empiric broad spectrum antibiotics with meropenem since in Blood and urine Cultures : no growth today Patient has received close to 6 L and will hold further IV fluids at this time Monitor urine output electrolytes and creatinine Her lactic acid level has normalized weaned off Levophed , and MAP > 65 Sepsis has resolved, patient is afebrile, blood pressure stable Patient has severe abdomen pain today, cloudy urine drained out. X-ray showed Bilateral internal ureteral stents in expected position with 5 mm at 4 mm stones projecting over the upper pole of the left kidney, no small bowel obstruction, 03/12 Leukocytosis persists, but patient is afebrile, but blood culture urine culture do not have bilateral growth. Follow-up procalcitonins: trending down to 1 c/w abx now Leukocytosis likely secondary to infection and also reaction to the cancer Intractable abdomen pain Intractable right upper quadrant abdomen pain, possible due to liver cancer Start MS Contin 30 mg b.i.d. p.o. Continue Dilaudid IV p.r.n. for breakthrough pain Pain is well controlled Endometrial carcinoma and a liver mass Code(s): C54.1 - Malignant neoplasm of endometrium Status: Acute Assessment and Plan: Liver biopsy is pending Patient has active vaginal bleeding And also has intractable right upper quadrant pain Consult gear setter and oncologist for evaluation treatment Appreciate OBGYN consultation, sand mill operator considers liver mass is unlikely related to do endometrial issue. D&C hysteroscopy per anesthesiologist and critical care, pending pathologist report Appreciate Dr Perry's consultation, he will follow-up the patient in the office next week after MediPort placement Metabolic encephalopathy: Code(s): G93.41 - Metabolic encephalopathy Status: Acute Assessment and Plan: Patient now alert oriented x3 Head CT and ammonia level normal Resolved Electrolyte abnormality: Code(s): E87.8 - Other disorders of electrolyte and fluid balance, not elsewhere classified Status: Acute Assessment and Plan: Replace low potassium Corrected Hydronephrosis, left: Code(s): N13.30 - Unspecified hydronephrosis Status: Acute (5) Left ureteral stone: Code(s): N20.1 - Calculus of ureter Status: Acute Underwent cystoscopy with bilateral ureteral stent placement on 03/08/24 and tolerated this well. UTI (urinary tract infection): Code(s): N39.0 - Urinary tract infection, site not specified Status: Acute Pyelitis: Code(s): N12 - Tubulo-interstitial nephritis, not specified as acute or chronic Status: Acute dc pt when approved by Urologist Subjective Date/time seen: 03/16/24 15:17 Interval history: I saw and examined the patient today, patient feels better today, pain is well controlled, appetite is improving, denies chest pain, cough, shortness of breath. Patient still has dark red urine drained out from Carty catheter, leukocytosis persists, afebrile Exam Narrative: GENERAL: Ill-appearing, in no acute distress. Well-nourished. - EYES: EOMI. Anicteric. - HENT: Moist mucous membranes. - LUNGS: Clear to auscultation bilaterally, no wheezing, rhonchi, or rales. - CARDIOVASCULAR: Regular rate and rhythm. No murmur. No JVD. - ABDOMEN: Soft, non-tender and non-distended. No palpable masses. Carty c
[2024-03-16 16:00] VITALS: BP 143/75
--- NOTE | 2024-03-16 16:50 | PM.GYNPNOP ---
DOORPERSON - A/P Postoperative Procedures: Procedures Operation Date: 03/08/24 15:00 Actual Procedure Side Surgeon p Cystoscopy, Bilateral Retrograde Pyelogram, Bilateral Stent Placement Bilateral Ike Ivy MD Operation Date: 03/14/24 17:45 Actual Procedure Side Surgeon p Hysteroscopy, Dilation and Curettage Not Applicable Dalila Reyes MD Operation Date: 03/17/24 10:00 <No data on this case meets the specified criteria> Postoperative day: 2 Postoperative status: other (Benign polyp. Reviewed with daughter and patient. Will likely have 7-10 days of light bleeding. Will sign off on patient. ) Time Spent With Patient Time: Total time spent is greater than 50% in coordination of care (as documented) at patient's floor/unit and/or counseling patient: Time with patient: less than 15 minutes DOORPERSON- PN:Subj Post-Op Subjective Date/time seen: 03/16/24 16:50 Interval history: Reviewed pathology from Hysteroscopic resection and D&C. DOORPERSON - PN: Obj Data Vital Signs Vital Signs: Vital Signs - 24 hr 03/15/24 18:17 03/15/24 21:19 03/15/24 20:00 Temperature 97.9 F 97.3 F L Pulse Rate 73 102 H Respiratory Rate 15 18 Blood Pressure 120/76 124/67 Pulse Oximetry 98 97 Oxygen Delivery Room Air 03/16/24 04:57 03/16/24 08:00 03/16/24 14:00 Temperature 97.4 F L 98.6 F Pulse Rate 75 99 Respiratory Rate 20 18 Blood Pressure 132/63 122/73 Pulse Oximetry 98 99 Oxygen Delivery Room Air Intake/Output Intake/Output: Intake & Output 03/13/24 03/14/24 03/15/24 03/16/24 23:59 23:59 23:59 23:59 Intake Total 1060 420 900 440 Output Total 600 1025 950 400 Balance 460 -605 -50 40 Meds/Results Medications: Active Medications Generic Name Dose Route Start Last Admin Trade Name Freq PRN Reason Stop Dose Admin Acetaminophen 650 mg 03/09/24 11:27 03/15/24 17:27 Acetaminophen Elixir 325 Mg/10.15 Ml Udc PO 650 mg Q4H PRN Administration Mild Pain (1-3) or Fever Hydrocodone Bitart/Acetaminophen 1 tab 03/09/24 08:01 03/13/24 17:16 Hydrocodone/Acetaminophen (*Crx) 5-325 Mg Tablet PO 1 tab Q4H PRN Administration Pain Rated 4-6 Amoxicillin/Clavulanate Potassium 1 tablet 03/13/24 13:00 03/16/24 08:38 Amoxicillin/Clavulanate K 875-125 Mg Tab PO 03/17/24 21:01 1 tablet Q12HR [facility] Administration Enoxaparin Sodium 40 mg 03/09/24 09:00 03/16/24 08:42 Enoxaparin 40 Mg/0.4 Ml Syringe SUB-Q Not Given DAILY [facility] Fentanyl Citrate 25 mcg 03/16/24 13:48 Fentanyl Citrate Inj (*Crx) 100 Mcg/2 Ml Vial IV PUSH Q2M PRN Pain Ferrous Sulfate 325 mg 03/09/24 17:00 03/16/24 08:42 Ferrous Sulfate Liquid 325 Mg/7.4 Ml Elixir PO 325 mg BID [facility] Administration Hydromorphone HCl 0.5 mg 03/09/24 08:02 03/14/24 02:15 Hydromorphone Hcl Inj (*Crx) 1 Mg/Ml Syr IV PUSH 0.5 mg Q3H PRN Administration Pain Rated 7-10 Lactated Ringer's 1,000 mls @ 30 mls/hr 03/16/24 13:50 Lr - Lactated Ringers Iv IV CONT .Q24H [facility] Lactated Ringer's 1,000 mls @ 30 mls/hr 03/16/24 13:50 Lr - Lactated Ringers Iv IV CONT .Q24H [facility] Morphine Sulfate 30 mg 03/13/24 21:00 03/16/24 08:41 Morphine Sulfate (*Crx) 30 Mg Tabcr PO 30 mg Q12HR [facility] Administration Ondansetron HCl 4 mg 03/08/24 12:56 Ondansetron Inj 4 Mg/2 Ml Vial IV PUSH Q4H PRN Nausea Ondansetron HCl 4 mg 03/16/24 13:48 Ondansetron Inj 4 Mg/2 Ml Vial IV PUSH ONCE PRN Nausea Polyethylene Glycol 17 gm 03/16/24 17:00 Polyethylene Glycol 3350 17 Gm Powd.Pack PO BID PRN Constipation Sodium Chloride 20 ml 03/09/24 01:36 Central Line Flush IV PUSH PRN PRN after blood draws Radiology Results: ITS Impressions Head CT 03/08/24 11:35 IMPRESSION: 1. Normal aging brain. Abdomen/Pelvis CT 03/08/24 11:44 IMPRESSION: 1. 3 mm stone in distal left ureter with mild left hydronephrosis and hydrourete
[2024-03-16 23:49] VITALS: BP 135/61; PULSE 113; RESP 16; TEMP 36.8; O2SAT 94
[2024-03-17] VITALS (12 sets, daily range): BP systolic 96–135; BP diastolic 58–77; PULSE 85–116; RESP 12–18; TEMP 36.1–37.4; O2SAT 92–100
[2024-03-17 04:29] LABS: Basophils Absolute Auto 0.1 K/mm3 (0.0-0.1); Basophils Percent Auto 0.3 % (0.2-1.2); Hematocrit 34.7 % (37.0-47.0); Hemoglobin 10.4 g/dL (12.0-15.0); Immature Granulocyte Absolute 0.21 K/mm3 (0.00-0.031); Immature Granulocyte Percent A 0.8 % (0-0.5); Lymphocytes Absolute Auto 0.97 K/mm3 (0.9-3.2); Lymphocytes Percent Auto 3.7 % (18.3-44.2); Mean Corpuscular Hemoglobin 28.5 pg (26-34); Mean Corpuscular Volume 95.1 fl (80-100); Mean Platelet Volume 9.8 fl (7.4-10.4); Monocytes Absolute Auto 1.4 K/mm3 (0.1-0.6); Monocytes Percent Auto 5.3 % (2.6-8.5); Neutrophils Absolute Auto 23.7 K/mm3 (1.3-6.7); Neutrophils Percent Auto 89.9 % (45.5-73.1); Platelet Count Result 197 k/mm3 (150-375); Red Blood Count 3.65 M/mm3 (4.2-5.4); Red Cell Distribution Width 16.9 % (11.5-14.5); White Blood Count 26.4 K/mm3 (4.5-10.0)
[2024-03-17 04:42] LABS: Anion Gap 4 mmol/L (4-12); Blood Urea Nitrogen 12 mg/dL (7-17); Calcium 10.3 mg/dL (8.4-10.2); Carbon Dioxide 24 mmol/L (22-30); Chloride 106 mmol/L (98-107); Estimated CRCL calculation 112 ml/min; Estimated Glomerular Filt Rate > 60; Glucose 80 mg/dL (65-110); Potassium 4.1 mmol/L (3.4-5.0); Sodium 134 mmol/L (137-145)
--- NOTE | 2024-03-17 06:51 | WPDUROPN2 ---
Progress Note: A&P Assessment and Plan (1) Sepsis: Qualifiers: Sepsis type: sepsis due to unspecified organism Sepsis acute organ dysfunction status: with acute organ dysfunction Severe sepsis acute organ dysfunction type: encephalopathy Severe sepsis shock status: with septic shock Qualified Code(s): A41.9 - Sepsis, unspecified organism; R65.21 - Severe sepsis with septic shock; G93.41 - Metabolic encephalopathy Code(s): A41.9 - Sepsis, unspecified organism Status: Acute (2) Left ureteral stone: Code(s): N20.1 - Calculus of ureter Status: Acute (3) Bilateral hydronephrosis: Code(s): N13.30 - Unspecified hydronephrosis Status: Acute (4) Abnormal urinalysis: Code(s): R82.90 - Unspecified abnormal findings in urine Status: Acute (5) Metastatic disease: Code(s): C79.9 - Secondary malignant neoplasm of unspecified site Status: Acute Plan I will plan cysto., bilateral ureteral stent removal in concert with Dr. Buck placing venous access catheter. Subjective Subjective Date/Time Seen: 03/17/24 06:51 Interval history: Sleeping, I didn't wake her Review of Systems Review of Systems: ROS unobtainable: Yes other Exam Const: General: no acute distress Resp: Effort & Inspection: normal respiratory effort GI: Inspection: non-distended GI Palp: No abdominal tenderness and No Guarding due to palpation present (GI) Auscultation: normal bowel sounds Objective Data Vital Signs Vital Signs: Vital Signs - 24 hr 03/16/24 08:00 03/16/24 14:00 03/16/24 16:00 Temperature 98.6 F Pulse Rate 99 Respiratory Rate 18 Blood Pressure 122/73 143/75 H Pulse Oximetry 99 Oxygen Delivery Room Air 03/16/24 23:49 03/16/24 20:00 Temperature 98.3 F Pulse Rate 113 H Respiratory Rate 16 Blood Pressure 135/61 Pulse Oximetry 94 Oxygen Delivery Room Air Intake/Output Intake/Output: Intake & Output 03/14/24 03/15/24 03/16/24 03/17/24 23:59 23:59 23:59 23:59 Intake Total 420 900 440 Output Total 7225 336 731 [facility] -605 -50 -260 Meds/Results Medications: Active Medications Generic Name Dose Route Start Last Admin Trade Name Freq PRN Reason Stop Dose Admin Acetaminophen 650 mg 03/09/24 11:27 03/15/24 17:27 Acetaminophen Elixir 325 Mg/10.15 Ml Udc PO 650 mg Q4H PRN Administration Mild Pain (1-3) or Fever Hydrocodone Bitart/Acetaminophen 1 tab 03/09/24 08:01 03/13/24 17:16 Hydrocodone/Acetaminophen (*Crx) 5-325 Mg Tablet PO 1 tab Q4H PRN Administration Pain Rated 4-6 Amoxicillin/Clavulanate Potassium 1 tablet 03/13/24 13:00 03/16/24 20:59 Amoxicillin/Clavulanate K 875-125 Mg Tab PO 03/17/24 21:01 1 tablet Q12HR [facility] Administration Enoxaparin Sodium 40 mg 03/09/24 09:00 03/16/24 08:42 Enoxaparin 40 Mg/0.4 Ml Syringe SUB-Q Not Given DAILY [facility] Fentanyl Citrate 25 mcg 03/16/24 13:48 Fentanyl Citrate Inj (*Crx) 100 Mcg/2 Ml Vial IV PUSH Q2M PRN Pain Ferrous Sulfate 325 mg 03/09/24 17:00 03/16/24 19:48 Ferrous Sulfate Liquid 325 Mg/7.4 Ml Elixir PO Not Given BID [facility] Hydromorphone HCl 0.5 mg 03/09/24 08:02 03/14/24 02:15 Hydromorphone Hcl Inj (*Crx) 1 Mg/Ml Syr IV PUSH 0.5 mg Q3H PRN Administration Pain Rated 7-10 Lactated Ringer's 1,000 mls @ 30 mls/hr 03/16/24 13:50 Lr - Lactated Ringers Iv IV CONT .Q24H [facility] Lactated Ringer's 1,000 mls @ 30 mls/hr 03/16/24 13:50 Lr - Lactated Ringers Iv IV CONT .Q24H [facility] Morphine Sulfate 30 mg 03/13/24 21:00 03/16/24 20:59 Morphine Sulfate (*Crx) 30 Mg Tabcr PO 30 mg Q12HR [facility] Administration Ondansetron HCl 4 mg 03/08/24 12:56 Ondansetron Inj 4 Mg/2 Ml Vial IV PUSH Q4H PRN Nausea Ondansetron HCl 4 mg 03/16/24 13:48 Ondansetron Inj 4 Mg/2 Ml Vial IV PUSH ONCE PRN Nausea Polyethylene Glycol 17 gm 03/16/24 17:
[2024-03-17] MEDS: LACTATED RINGERS 1,000 ML 30 ML IV CONT (09:00)
--- NOTE | 2024-03-17 09:12 | WPDANESEPPF ---
Anes - Initial Pre Proc Eval Procedure: Operation Date: 03/08/24 15:00 Proposed Procedures p Cystoscopy, Left Stent Placement - Ike Ivy MD Operation Date: 03/14/24 17:45 Proposed Procedures p Hysteroscopy, Dilation and Curettage - Dalila Reyes MD Operation Date: 03/17/24 10:00 Proposed Procedures p Insertion Lian Cath - Paige Buck MD Date/Time: 03/17/24 09:12 Surgeon: Santos Ramires MD Pre Op Diagnosis: ABDOMINAL PAIN Patient Data Age: 64 Gender: F Height: 1.78 m Weight: 82.6 kg Last Vital Signs Temp 99.4 F 03/17/24 09:00 Pulse 108 H 03/17/24 09:00 Resp 16 03/17/24 09:00 BP 121/58 L 03/17/24 09:00 Pulse Ox 97 03/17/24 09:00 O2 Del Method Room Air 03/17/24 09:00 O2 Flow Rate 8 03/08/24 15:55 Allergies Allergy/AdvReac Type Severity Reaction Status Date / Time No Known Allergies Allergy Verified 03/08/24 14:25 Home Medications Medication Instructions Recorded Confirmed Type No Home Medications 03/09/24 03/09/24 History Laboratory Tests 03/17/24 03:49 WBC 26.4 H K/mm3 (4.5-10.0) RBC 3.65 L M/mm3 (4.2-5.4) Hgb 10.4 L g/dL (12.0-15.0) Hct 34.7 L % (37.0-47.0) MCV 95.1 fl (80-100) MCH 28.5 pg (26-34) MCHC 30.0 L g/dl (32-36) RDW 16.9 H % (11.5-14.5) Plt Count 197 k/mm3 (150-375) MPV 9.8 fl (7.4-10.4) Immature Gran % (Auto) 0.8 H % (0-0.5) Neut % (Auto) 89.9 H % (45.5-73.1) Lymph % (Auto) 3.7 L % (18.3-44.2) Bryan % (Auto) 5.3 % (2.6-8.5) Eos % (Auto) 0.0 % (0-4.4) Baso % (Auto) 0.3 % (0.2-1.2) Lymph # (Auto) 0.97 K/mm3 (0.9-3.2) Bryan # (Auto) 1.4 H K/mm3 (0.1-0.6) Eos # (Auto) 0.0 K/mm3 (0-0.3) Baso # (Auto) 0.1 K/mm3 (0.0-0.1) Abs Immat Gran (auto) 0.21 H K/mm3 (0.00-0.031) Absolute Neuts (auto) 23.7 H K/mm3 (1.3-6.7) Absolute Nucleated RBC 0.000 K/mm3 (0.0-0.012) Nucleated RBC % 0.0 % (0.0-0.2) Sodium 134 L mmol/L (137-145) Potassium 4.1 mmol/L (3.4-5.0) Chloride 106 mmol/L (98-107) Carbon Dioxide 24 mmol/L (22-30) Anion Gap 4 mmol/L (4-12) BUN 12 mg/dL (7-17) Creatinine 0.50 L mg/dL (0.7-1.0) Estim Creat Clear Calc 112 ml/min Estimated GFR > 60 (59 - ) Glucose 80 mg/dL (65-110) Calcium 10.3 H mg/dL (8.4-10.2) Patient hx anesthesia problems: none Family hx anesthesia problems: none Results Review: All pre-operative results and documents have been reviewed as part of the pre-operative evaluation. [facility] Past Medical History Medical History Abdominal mass large mass involving the perihepatic lymph node chain and left hepatic lobe, first seen on CT on 01/21/24 Social History Social History Spiritual care concerns: No Anes - Eval Final PreProcedure Day of Procedure 03/17/24 09:12 Patient weight: overweight Heart: regular rate and rhythm Lungs: clear to auscultation Airway: Mallampati scale and special considerations (One upper post tooth cracked, none loose. ) Neurological: alert and oriented and lethargic Last oral intake: >/= 8 hours ASA classification: III Emergent: no Anesthetic plan: proceed Anesthesia type and monitoring: general LMA and standard monitoring Results Review: All pre-operative results and documents have been reviewed as part of the pre-operative evaluation. Pt w endometrial ca, w liver mets, now needs portacath for chemo initiation. Also for removal of ureteral stents. Informed Consent: The patient's anesthetic plan and its attendant risks and benefits were discussed with the patient/family/POA. Questions were solicited and answers provided to the satisfaction of the patient/family/POA.
--- NOTE | 2024-03-17 09:44 | WPDHPUPDATE1 ---
History and Physical Update Update Date/Time: 03/17/24 09:44 History and Physical has been reviewed, including an updated exam of the patient. There are NO changes in the patient's condition. Risks, benefits, and alternatives have been discussed and questions answered. Patient agrees to proceed with procedure.
--- NOTE | 2024-03-17 09:51 | WPDHPUPDATE1 ---
History and Physical Update Update Date/Time: 03/17/24 09:51 History and Physical has been reviewed, including an updated exam of the patient. There are NO changes in the patient's condition. Risks, benefits, and alternatives have been discussed and questions answered. Patient agrees to proceed with procedure.
[2024-03-17] MEDS: BUPIVACAINE/EPINEPHRINE 0.5% 10 ML VIAL 20 ML INFILTRATE (10:31)
[2024-03-17] MEDS: HEPARIN SODIUM, PORCINE 10,000 UNITS/10 ML VIAL 10000 UNITS IV PUSH (10:32)
[2024-03-17] MEDS: HEPARIN SODIUM 5,000 UNITS/ML VIAL 5000 UNITS SUB-Q (10:33)
--- NOTE | 2024-03-17 10:43 | W.PM.PROC2 ---
Procedure Note - Detailed Date of Procedure 03/17/24 Pre-op Diagnosis Metastatic cancer of unknown primary Post-op Diagnosis Same Procedure Performed placement of right internal jugular venous access device under both ultrasound and fluroscopic guidance Surgeon Paige Buck MD Anesthesia General and Local Indications 64-year-old female with metastatic cancer of unknown primary Findings 1st stick a right IJ via ultrasound guidance Description of Procedure Patient was brought into the operating room and placed in the supine position. After adequate induction of general anesthesia, the patient was prepped and draped in normal sterile fashion. Time-out was then done to verify the patient's identity, as well as the procedure being performed. I used the ultrasound to gain access into the right internal jugular vein. Once access was gained, I placed the guidewire in the vein and confirmed proper positioning using fluoroscopy. I then locally anesthetized an area in the right chest. I then made an incision including making a subcutaneous pocket inferiorly to allow placement of the port itself. I proceeded to tunnel the catheter from the chest to the right neck insertion site. I then placed a dilating sheath over the guidewire into the right internal jugular vein via sterile Seldinger technique. This was once again done and confirmed via fluoroscopic guidance. I then removed the dilator and the guidewire, now just leaving the sheath in the vein. I then fed the previously flushed catheter into the right internal jugular vein under fluoroscopic guidance. At approximately 18 cm, the catheter was noted to be near the atrial caval junction. I then peeled away the sheath, now just leaving the catheter in the vein. I then was able to easily draw and flush from the catheter. The catheter was cut to fit and attached to the port itself. The port was placed into the previously made subcutaneous pocket and sutured in with 0 Ethibond suture. Final fluoroscopic view showed the termination of the catheter at the atrial caval junction with a nice smooth curvature back to the port itself. I was able to gain access to the port with a Jerry needle and was able to easily draw and flush from the port. I then flushed 4 cc of a final heparin flush into the port. The incision was closed with 3 0 Vicryl suture in the subcutaneous tissue and the skin was closed with 4 O Monocryl subcuticular suture. Dermabond was then placed on wound. The patient tolerated the procedure well and will be sent to the recovery room in stable condition. Implants RIJ VAD Estimated Blood Loss 5 Pathology None sent Complications No immediate complications Condition Stable Disposition PACU [facility] Billing Surgery - Charge Forward: Surgery Billing
--- NOTE | 2024-03-17 10:47 | W.PM.PROC2 ---
Procedure Note - Detailed Date of Procedure 03/17/24 Pre-op Diagnosis Recent left ureteral stone, passed spontaneously Post-op Diagnosis Same Procedure Performed Cystoscopy, bilateral stent removal Surgeon Maximiliano Dias MD Anesthesia General Description of Procedure Patient is in the operative suite having just finished a procedure with Dr. Buck. For our procedure she has prepped draped in routine sterile fashion while in a frogleg position. Using a 16 F flexible cystoscope each of her indwelling ureteral stents are removed with ease. The bladder mucosa shows a little hyperemia around the ureteral orifices but without additional intravesical hyperemia or neoplastic changes. Estimated Blood Loss 5 Urine Output 375 Drains No Packing No Pathology None sent
[2024-03-17] MEDS: FERROUS SULFATE LIQUID 325 MG/7.4 ML ELIXIR PO ×2 (12:27→17:02)
[2024-03-17] MEDS: AMOXICILLIN/CLAVULANATE K 875-125 MG TAB 1 TABLET PO ×2 (12:27→20:48)
[2024-03-17] MEDS: MORPHINE SULFATE (*CRX) 30 MG TABCR PO ×2 (12:27→20:48)
--- NOTE | 2024-03-17 15:09 | PM.IMPN ---
Progress Note: A&P Assessment and Plan (1) Septic shock: Code(s): A41.9 - Sepsis, unspecified organism; R65.21 - Severe sepsis with septic shock Status: Acute (2) UTI (urinary tract infection): Code(s): N39.0 - Urinary tract infection, site not specified Status: Acute (3) Hydronephrosis, left: Code(s): N13.30 - Unspecified hydronephrosis Status: Acute Plan # Septic shock, Secondary to UTI, cystitis and left-sided pyelitis Patient also had 3 mm left ureteral stone with hydronephrosis now status post stent placement by Urology Empiric broad spectrum antibiotics with meropenem since in March 08 Blood and urine Cultures : no growth Patient has received close to 6 L and will hold further IV fluids at this time Monitor urine output electrolytes and creatinine Her lactic acid level has normalized weaned off Levophed , and MAP > 65 Sepsis has resolved, patient is afebrile, blood pressure stable X-ray showed Bilateral internal ureteral stents in expected position with 5 mm at 4 mm stones projecting over the upper pole of the left kidney, no small bowel obstruction, 03/12 Leukocytosis persists, but patient is afebrile, but blood culture urine culture do not have bilateral growth. Follow-up procalcitonins: trending down to 1 c/w abx now Leukocytosis likely secondary to infection and also reaction to the cancer # Intractable abdomen pain CT abdomen pelvis 03/08/2024 with large mass involving perihepatic lymph node chain and left hepatic lobe consistent with metastatic disease. Thickened endometrial complex suspicious for endometrial carcinoma. Intractable right upper quadrant abdomen pain, possible due to liver cancer Start MS Contin 30 mg b.i.d. p.o. Continue Dilaudid IV p.r.n. for breakthrough pain Pain is well controlled # Endometrial carcinoma and a liver mass 10 cm large mass in the uterus. CA 125 is elevated at 306. Patient has active vaginal bleeding And also has intractable right upper quadrant pain Consult tariff clerk and oncologist for evaluation treatment Appreciate OBGYN consultation, pilot plant research technician considers liver mass is unlikely related to do endometrial issue. D&C hysteroscopy per real estate site analyst,Pathology with benign endometrial polyp inactive endometrium with cystic changes negative for malignancy. 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 # Metabolic encephalopathy: Patient now alert oriented x3 Head CT and ammonia level normal Resolved # Electrolyte abnormality: Replace low potassium Corrected # Hydronephrosis, left: Left ureteral stone: Underwent cystoscopy with bilateral ureteral stent placement on 03/08/24 and tolerated this well. Status post stent removal 03/17/2024 # UTI (urinary tract infection): dc pt when approved by Urologist Leukocytosis still persistent and worsened. Will panculture again. Chest x-ray with diffuse interstitial pattern in lungs airspace opacities in the perihilar region and left lower lung zone could be combination of atelectasis and mild pulmonary edema. No localizing symptom present currently. On Augmentin since 03/09 was treated with meropenem 03/08 to 03/13. Subjective Date/time seen: 03/17/24 15:09 Interval history: Patient underwent port placement and stent removal today No other overnight events reported. Review of Systems Review of Systems: All systems reviewed & are unremarkable except as noted in HPI and below Exam Narrative: GENERAL: Ill-appearing, in no acute distress. Well-nourished. - EYES: EOMI. Anicteric. - HENT: Moist mucous membranes. - LUNGS: Clear to auscultation bilaterally, no wheezing, rhonchi, or rales. - CARDIOVASCULAR: Regular rate and rhythm. No murmur. No JVD. - ABDOMEN: Soft, non-tender and non-
[2024-03-17 18:37] LABS: Bacteria Urine None Seen /hpf; Need Manual Microscopic Reviewed; Non Pathogenic Casts 0-2; RBC Urine >100 /hpf (0-2); Squamous Epithelial Cell Urine Occasional /hpf (Few); WBC Urine 51-100 /hpf (0-3)
[2024-03-17 18:38] LABS: Appearance Urine Cloudy (Clear); Bilirubin Urine 1+ (Negative); Blood Urine 3+ (Negative); Color Urine Red (Yellow); Glucose Urine UA Negative (Negative); Ketones Urine Negative (Negative); Leukocyte Esterase Ur 2+ LEU/UL (Negative); Nitrate Urine Negative (Negative); Protein Urine 2+ mg/dL (Negative); Specific Grav Ur 1.017 (1.001-1.035)
[2024-03-17 18:39] LABS: Add Urine Microscopic? YES
[2024-03-18 05:39] LABS: Basophils Absolute Auto 0.1 K/mm3 (0.0-0.1); Basophils Percent Auto 0.2 % (0.2-1.2); Eosinophils Percent Auto 0.1 % (0-4.4); Hematocrit 31.7 % (37.0-47.0); Hemoglobin 9.7 g/dL (12.0-15.0); Immature Granulocyte Absolute 0.32 K/mm3 (0.00-0.031); Immature Granulocyte Percent A 1.1 % (0-0.5); Lymphocytes Absolute Auto 1.36 K/mm3 (0.9-3.2); Lymphocytes Percent Auto 4.8 % (18.3-44.2); Mean Corpuscular HGB Conc 30.6 g/dl (32-36); Mean Corpuscular Hemoglobin 28.6 pg (26-34); Mean Corpuscular Volume 93.5 fl (80-100); Mean Platelet Volume 9.7 fl (7.4-10.4); Monocytes Percent Auto 3.3 % (2.6-8.5); Neutrophils Absolute Auto 25.9 K/mm3 (1.3-6.7); Neutrophils Percent Auto 90.5 % (45.5-73.1); Platelet Count Result 190 k/mm3 (150-375); Red Blood Count 3.39 M/mm3 (4.2-5.4); Red Cell Distribution Width 16.9 % (11.5-14.5); White Blood Count 28.6 K/mm3 (4.5-10.0)
[2024-03-18 05:45] LABS: Alanine Aminotransferase 13 U/L (6-35); Albumin Level 2.4 g/dL (3.5-5.1); Alkaline Phosphatase 145 U/L (38-126); Anion Gap 2 mmol/L (4-12); Aspartate Amino Transferase 24 U/L (14-36); Bilirubin,Total 0.8 mg/dL (0.2-1.3); Blood Urea Nitrogen 15 mg/dL (7-17); Calcium 10.5 mg/dL (8.4-10.2); Carbon Dioxide 27 mmol/L (22-30); Chloride 105 mmol/L (98-107); Estimated CRCL calculation 74 ml/min; Estimated Glomerular Filt Rate > 60; Glucose 117 mg/dL (65-110); Magnesium 2.3 mg/dL (1.6-2.3); Sodium 134 mmol/L (137-145)
[2024-03-18 05:57] VITALS: BP 114/73; PULSE 90; RESP 18; TEMP 36.1; O2SAT 97
[2024-03-18] MEDS: FERROUS SULFATE LIQUID 325 MG/7.4 ML ELIXIR PO ×2 (08:19→16:58)
[2024-03-18] MEDS: polyethylene glycoL 3350 17 GM POWD.PACK PO (08:19)
[2024-03-18] MEDS: ENOXAPARIN 40 MG/0.4 ML SYRINGE SUB-Q (08:19)
[2024-03-18] MEDS: MORPHINE SULFATE (*CRX) 30 MG TABCR PO ×2 (08:20→21:11)
--- NOTE | 2024-03-18 12:16 | PM.IMPN ---
Progress Note: A&P Assessment and Plan (1) Septic shock: Code(s): A41.9 - Sepsis, unspecified organism; R65.21 - Severe sepsis with septic shock Status: Acute (2) UTI (urinary tract infection): Code(s): N39.0 - Urinary tract infection, site not specified Status: Acute (3) Hydronephrosis, left: Code(s): N13.30 - Unspecified hydronephrosis Status: Acute Plan # Septic shock, Secondary to UTI, cystitis and left-sided pyelitis Patient also had 3 mm left ureteral stone with hydronephrosis now status post stent placement by Urology Empiric broad spectrum antibiotics with meropenem since in March 08 Blood and urine Cultures : no growth Patient has received close to 6 L and will hold further IV fluids at this time Monitor urine output electrolytes and creatinine Her lactic acid level has normalized weaned off Levophed , and MAP > 65 Sepsis has resolved, patient is afebrile, blood pressure stable X-ray showed Bilateral internal ureteral stents in expected position with 5 mm at 4 mm stones projecting over the upper pole of the left kidney, no small bowel obstruction, 03/12 Leukocytosis persists, but patient is afebrile, but blood culture urine culture do not have bilateral growth. Follow-up procalcitonins: trending down to 1 c/w abx now Leukocytosis likely secondary to infection and also reaction to the cancer continues to worsen Will re-scanned recheck procalcitonin Switch back to meropenem # Intractable abdomen pain CT abdomen pelvis 03/08/2024 with large mass involving perihepatic lymph node chain and left hepatic lobe consistent with metastatic disease. Thickened endometrial complex suspicious for endometrial carcinoma. Intractable right upper quadrant abdomen pain, possible due to liver cancer Start MS Contin 30 mg b.i.d. p.o. Continue Dilaudid IV p.r.n. for breakthrough pain Pain is well controlled # Endometrial carcinoma and a liver mass 10 cm large mass in the uterus. CA 125 is elevated at 306. Patient has active vaginal bleeding And also has intractable right upper quadrant pain Consult senior treasury analyst and oncologist for evaluation treatment Appreciate OBGYN consultation, cartography/mapping technician considers liver mass is unlikely related to do endometrial issue. D&C hysteroscopy per streets and buildings decorator,Pathology with benign endometrial polyp inactive endometrium with cystic changes negative for malignancy. 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 # Metabolic encephalopathy: Patient now alert oriented x3 Head CT and ammonia level normal Resolved # Electrolyte abnormality: Replace low potassium Corrected # Hydronephrosis, left: Left ureteral stone: Underwent cystoscopy with bilateral ureteral stent placement on 03/08/24 and tolerated this well. Status post stent removal 03/17/2024 # UTI (urinary tract infection): dc pt when approved by Urologist Leukocytosis still persistent and worsened. Pancultured. Chest x-ray with diffuse interstitial pattern in lungs airspace opacities in the perihilar region and left lower lung zone could be combination of atelectasis and mild pulmonary edema. No localizing symptom present currently. On Augmentin since 03/09 was treated with meropenem 03/08 to 03/13. Switch back to meropenem. Will re-scan Subjective Date/time seen: 03/18/24 12:16 Interval history: No overnight events. Family at bedside and discussed with them. Denies any abdominal pain nausea vomiting. No diarrhea. Remains afebrile. Labs reviewed. Review of Systems Review of Systems: All systems reviewed & are unremarkable except as noted in HPI and below Exam Narrative: GENERAL: Ill-appearing, in no acute distress. Well-nourished. - EYES: EOMI. Anicteric. - HENT: Moist mucous membran
[2024-03-18 13:21] LABS: Procalcitonin 0.5 ng/mL
[2024-03-18 14:46] VITALS: BP 97/68; PULSE 96; RESP 17; TEMP 36.4; O2SAT 92
[2024-03-18] MEDS: MEROPENEM 1 GM/NS 100 ML 1 GM/100 ML BAG IVPB ×2 (15:38→21:15)
[2024-03-18 21:08] VITALS: BP 126/68; PULSE 87; RESP 16; TEMP 36.2; O2SAT 95
[2024-03-19 05:38] VITALS: BP 133/76; PULSE 86; RESP 18; TEMP 36.4; O2SAT 96
[2024-03-19] MEDS: MEROPENEM 1 GM/NS 100 ML 1 GM/100 ML BAG IVPB ×3 (05:42→21:04)
[2024-03-19 05:56] LABS: Alanine Aminotransferase 11 U/L (6-35); Albumin Level 2.3 g/dL (3.5-5.1); Alkaline Phosphatase 128 U/L (38-126); Anion Gap 1 mmol/L (4-12); Aspartate Amino Transferase 22 U/L (14-36); Bilirubin,Total 0.6 mg/dL (0.2-1.3); Blood Urea Nitrogen 14 mg/dL (7-17); Calcium 10.5 mg/dL (8.4-10.2); Carbon Dioxide 29 mmol/L (22-30); Chloride 106 mmol/L (98-107); Estimated CRCL calculation 85 ml/min; Estimated Glomerular Filt Rate > 60; Glucose 88 mg/dL (65-110); Magnesium 2.3 mg/dL (1.6-2.3); Potassium 3.8 mmol/L (3.4-5.0); Sodium 136 mmol/L (137-145)
[2024-03-19 06:07] LABS: Basophils Absolute Auto 0.1 K/mm3 (0.0-0.1); Basophils Percent Auto 0.3 % (0.2-1.2); Eosinophils Percent Auto 0.1 % (0-4.4); Hematocrit 31.3 % (37.0-47.0); Hemoglobin 9.5 g/dL (12.0-15.0); Immature Granulocyte Absolute 0.24 K/mm3 (0.00-0.031); Immature Granulocyte Percent A 1.1 % (0-0.5); Lymphocytes Absolute Auto 1.07 K/mm3 (0.9-3.2); Lymphocytes Percent Auto 4.9 % (18.3-44.2); Mean Corpuscular HGB Conc 30.4 g/dl (32-36); Mean Corpuscular Hemoglobin 28.7 pg (26-34); Mean Corpuscular Volume 94.6 fl (80-100); Mean Platelet Volume 9.8 fl (7.4-10.4); Monocytes Absolute Auto 0.6 K/mm3 (0.1-0.6); Monocytes Percent Auto 2.8 % (2.6-8.5); Neutrophils Percent Auto 90.8 % (45.5-73.1); Platelet Count Result 189 k/mm3 (150-375); Red Blood Count 3.31 M/mm3 (4.2-5.4); Red Cell Distribution Width 16.7 % (11.5-14.5)
[2024-03-19 06:34] LABS: Burr Cells 2+; Platelet Estimate Adequate (Adequate)
[2024-03-19 07:07] LABS: Schistocytes None Seen
[2024-03-19] MEDS: ENOXAPARIN 40 MG/0.4 ML SYRINGE SUB-Q (08:14)
[2024-03-19] MEDS: FERROUS SULFATE LIQUID 325 MG/7.4 ML ELIXIR PO ×2 (08:14→17:49)
[2024-03-19] MEDS: polyethylene glycoL 3350 17 GM POWD.PACK PO (08:14)
[2024-03-19] MEDS: MORPHINE SULFATE (*CRX) 30 MG TABCR PO ×2 (08:14→21:02)
--- NOTE | 2024-03-19 13:00 | PM.IMPN ---
Progress Note: A&P Assessment and Plan (1) Septic shock: Code(s): A41.9 - Sepsis, unspecified organism; R65.21 - Severe sepsis with septic shock Status: Acute (2) UTI (urinary tract infection): Code(s): N39.0 - Urinary tract infection, site not specified Status: Acute (3) Hydronephrosis, left: Code(s): N13.30 - Unspecified hydronephrosis Status: Acute Plan # Septic shock, Secondary to UTI, cystitis and left-sided pyelitis Patient also had 3 mm left ureteral stone with hydronephrosis now status post stent placement by Urology Empiric broad spectrum antibiotics with meropenem since in March 08 Blood and urine Cultures : no growth Patient has received close to 6 L and will hold further IV fluids at this time Monitor urine output electrolytes and creatinine Her lactic acid level has normalized weaned off Levophed , and MAP > 65 Sepsis has resolved, patient is afebrile, blood pressure stable X-ray showed Bilateral internal ureteral stents in expected position with 5 mm at 4 mm stones projecting over the upper pole of the left kidney, no small bowel obstruction, 03/12 Leukocytosis persists, but patient is afebrile, but blood culture urine culture do not have bilateral growth. Follow-up procalcitonins: trending down to 1 c/w abx now Leukocytosis likely secondary to infection and also reaction to the cancer continues to worsen Will re-scann recheck procalcitonin inch improves repeat CT shows persistent distal ureteral stone with mild hydronephrosis left side Switch back to meropenem and still receive count improves. Await Nephrology recommendation with regard to kidney stones # Intractable abdomen pain CT abdomen pelvis 03/08/2024 with large mass involving perihepatic lymph node chain and left hepatic lobe consistent with metastatic disease. Thickened endometrial complex suspicious for endometrial carcinoma. Intractable right upper quadrant abdomen pain, possible due to liver cancer Start MS Contin 30 mg b.i.d. p.o. Continue Dilaudid IV p.r.n. for breakthrough pain Pain is well controlled # Endometrial carcinoma and a liver mass 10 cm large mass in the uterus. CA 125 is elevated at 306. Patient has active vaginal bleeding And also has intractable right upper quadrant pain Consult set up mechanic stamping machines and oncologist for evaluation treatment Appreciate OBGYN consultation, contract serviceman considers liver mass is unlikely related to do endometrial issue. D&C hysteroscopy per coding technician,Pathology with benign endometrial polyp inactive endometrium with cystic changes negative for malignancy. 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 # Metabolic encephalopathy: Patient now alert oriented x3 Head CT and ammonia level normal Resolved # Electrolyte abnormality: Replace low potassium Corrected # Hydronephrosis, left: Left ureteral stone: Underwent cystoscopy with bilateral ureteral stent placement on 03/08/24 and tolerated this well. Status post stent removal 03/17/2024 # UTI (urinary tract infection): dc pt when approved by Urologist Leukocytosis still persistent and worsened. Pancultured. Chest x-ray with diffuse interstitial pattern in lungs airspace opacities in the perihilar region and left lower lung zone could be combination of atelectasis and mild pulmonary edema. No localizing symptom present currently. On Augmentin since 03/09 4203/17 was treated with meropenem 03/08 to 03/13. Switch back to meropenem. Rescanned with the appearance of left hydronephrosis and persistent left distal ureteral stone. Subjective Date/time seen: 03/19/24 13:00 Interval history: No overnight events. Patient feels okay. Labs reviewed. CT reviewed. Review of Systems Review of Systems: All systems reviewed & are un
[2024-03-19 14:00] VITALS: BP 115/78; PULSE 88; RESP 20; TEMP 36.2; O2SAT 95
--- NOTE | 2024-03-19 17:00 | WPDUROPN2 ---
Progress Note: A&P Assessment and Plan (1) Hydronephrosis, left: Code(s): N13.30 - Unspecified hydronephrosis Status: Acute (2) Left ureteral stone: Code(s): N20.1 - Calculus of ureter Status: Acute Assessment and Plan: recent stent removal currently asymptomatic, AVSS please make NPO at midnight for possible ureteroscopy and stone removal, possible retrograde peylogram, possible stent placement suspect small focus of air related to recent instrumentation Subjective Subjective Date/Time Seen: 03/19/24 17:00 Interval history: no pain, no nausea vomiting, eating dinner currently. No fevers chills or flank pain. reconsulted due to CT scan finding of 2mm distal ureter stone with mild hydro on the left, Cr 0.7, WBC stable, afebrile Review of Systems Constitutional: Constitutional: Reports as per HPI and Reports no additional constitutional complaints Eyes: Eyes: Reports no additional eye complaints Cardiovascular: Cardiovascular: Reports as per HPI and Reports no additional cardiovascular complaints Respiratory: Respiratory: Reports as per HPI and Reports no additional respiratory complaints Gastrointestinal: Gastrointestinal: Reports as per HPI and Reports no additional gastrointestinal complaints Genitourinary: Genitourinary: Reports no additional female genitourinary complaints Musculoskeletal: Musculoskeletal: Reports no additional musculoskeletal complaints Integumentary/Breasts: Skin/Breast: Reports system reviewed and no additional complaints, except as docu Exam HENMT: Head: normal to inspection, normocephalic and atraumatic Face/Nose/Sinus: Normal external nose present and Normal nares present Eyes: General: appearance normal, both eyes and all related structures Resp: Effort & Inspection: normal respiratory effort and able to speak in complete sentences GI: Inspection: normal to inspection and non-distended GI Palp: No abdominal tenderness, Yes Soft to palpation and No Tenderness to palpation present (GI) Urinary Catheter: Urinary Catheter: patent and draining and urine clear Extrem: General: normal to inspection Objective Data Vital Signs Vital Signs: Vital Signs - 24 hr 03/18/24 21:08 03/18/24 20:00 03/19/24 05:38 Temperature 36.2 C L 36.4 C Pulse Rate 87 86 Respiratory Rate 16 18 Blood Pressure 126/68 133/76 Pulse Oximetry 95 96 Oxygen Delivery Room Air 03/19/24 14:00 Temperature 36.2 C L Pulse Rate 88 Respiratory Rate 20 Blood Pressure 115/78 Pulse Oximetry 95 Oxygen Delivery Intake/Output Intake/Output: Intake & Output 03/16/24 03/17/24 03/18/24 03/19/24 23:59 23:59 23:59 23:59 Intake Total 005 031 9603 630 Output Total 700 775 700 675 Balance -260 -175 370 -45 Meds/Results Medications: Active Medications Generic Name Dose Route Start Last Admin Trade Name Freq PRN Reason Stop Dose Admin Acetaminophen 650 mg 03/09/24 11:27 03/15/24 17:27 Acetaminophen Elixir 325 Mg/10.15 Ml Udc PO 650 mg Q4H PRN Administration Mild Pain (1-3) or Fever Enoxaparin Sodium 40 mg 03/09/24 09:00 03/19/24 08:14 Enoxaparin 40 Mg/0.4 Ml Syringe SUB-Q 40 mg DAILY TRINITY Administration Ferrous Sulfate 325 mg 03/09/24 17:00 03/19/24 08:14 Ferrous Sulfate Liquid 325 Mg/7.4 Ml Elixir PO 325 mg BID TRINITY Administration Meropenem 1 gm in 100 mls @ 200 mls/hr 03/18/24 14:00 03/19/24 14:51 IVPB 200 mls/hr Q8H TRINITY Administration Miscellaneous Information 1 each 03/18/24 00:01 [place] And Hydomorphone Needs To Be Renewed Or It Will Automatically Discontinue. XX 04/17/24 00:00 CLARIFY TRINITY Morphine Sulfate 30 mg 03/13/24 21:00 03/19/24 08:14 Morphine Sulfate (*Crx) 30 Mg Tabcr PO 30 mg Q12HR TRINITY Administration Ondansetron HCl 4 mg 03/08/24 12:56 Ondansetron Inj 4 Mg/2 Ml Vial IV PUSH Q4H PRN Nausea Polyethylene Glycol 17 gm 03/16/24 17:00 03/19/24 08:14 Po
[2024-03-19 22:00] VITALS: BP 111/60; PULSE 88; RESP 18; TEMP 36.1; O2SAT 98
[2024-03-20] MEDS: MEROPENEM 1 GM/NS 100 ML 1 GM/100 ML BAG IVPB ×3 (05:03→20:47)
[2024-03-20 05:23] LABS: Basophils Absolute Auto 0.1 K/mm3 (0.0-0.1); Basophils Percent Auto 0.5 % (0.2-1.2); Eosinophils Percent Auto 0.2 % (0-4.4); Hematocrit 37.7 % (37.0-47.0); Hemoglobin 10.2 g/dL (12.0-15.0); Immature Granulocyte Absolute 0.09 K/mm3 (0.00-0.031); Immature Granulocyte Percent A 0.5 % (0-0.5); Lymphocytes Absolute Auto 1.55 K/mm3 (0.9-3.2); Lymphocytes Percent Auto 9.5 % (18.3-44.2); Mean Corpuscular HGB Conc 27.1 g/dl (32-36); Mean Corpuscular Hemoglobin 28.6 pg (26-34); Mean Corpuscular Volume 105.6 fl (80-100); Mean Platelet Volume 9.7 fl (7.4-10.4); Monocytes Absolute Auto 0.8 K/mm3 (0.1-0.6); Monocytes Percent Auto 4.6 % (2.6-8.5); Neutrophils Absolute Auto 13.9 K/mm3 (1.3-6.7); Neutrophils Percent Auto 84.7 % (45.5-73.1); Nucleated Red Blood Cells Perc 0.2 % (0.0-0.2); Platelet Count Result 168 k/mm3 (150-375); Red Blood Count 3.57 M/mm3 (4.2-5.4); Red Cell Distribution Width 17.2 % (11.5-14.5); White Blood Count 16.4 K/mm3 (4.5-10.0)
[2024-03-20 05:34] LABS: Platelet Estimate Adequate (Adequate)
[2024-03-20 05:37] LABS: Anisocytosis 1+; Hypochromasia 1+; Microcytosis 1+ (NORMAL); Ovalocytes 1+; Schistocytes None Seen
[2024-03-20 05:40] LABS: Alanine Aminotransferase 10 U/L (6-35); Albumin Level 2.4 g/dL (3.5-5.1); Alkaline Phosphatase 137 U/L (38-126); Anion Gap 4 mmol/L (4-12); Aspartate Amino Transferase 23 U/L (14-36); Bilirubin,Total 0.6 mg/dL (0.2-1.3); Blood Urea Nitrogen 12 mg/dL (7-17); Calcium 10.3 mg/dL (8.4-10.2); Carbon Dioxide 23 mmol/L (22-30); Chloride 107 mmol/L (98-107); Estimated CRCL calculation 85 ml/min; Estimated Glomerular Filt Rate > 60; Glucose 96 mg/dL (65-110); Magnesium 2.5 mg/dL (1.6-2.3); Potassium 3.7 mmol/L (3.4-5.0); Sodium 134 mmol/L (137-145)
[2024-03-20 06:00] VITALS: BP 122/59; PULSE 69; RESP 16; TEMP 35.6; O2SAT 99
--- NOTE | 2024-03-20 09:33 | WPDUROPN2 ---
Progress Note: A&P Assessment and Plan (1) Hydronephrosis, left: Code(s): N13.30 - Unspecified hydronephrosis Status: Acute (2) Left ureteral stone: Code(s): N20.1 - Calculus of ureter Status: Acute Assessment and Plan: Underwent cysto with bilateral stent removal on 03/17/[address] chest/abdomen/pelvis for evaluation of increased leukocytosis demonstrated 2 mm stone in distal left ureter with mild left hydro. Also shows mild gas in the ureter which is likely due to recent instrumentation She is entirely asymptomatic. Leukocytosis has already markedly improved. No indication for acute urologic intervention. Will advance diet. Begin Flomax to help facilitate passage of small distal ureter stone Subjective Subjective Date/Time Seen: 03/20/24 09:33 Interval history: Vidhya is feeling well today. She is sitting up in a chair working with therapy. She denies suprapubic pain, flank pain, back pain. Denies nausea, vomiting, fevers, chills. No issues with her Carty catheter which is draining clear yellow urine Review of Systems Review of Systems: All systems reviewed & are unremarkable except as noted in HPI and below Exam Narrative: General: Awake, alert, comfortable, no acute distress HEENT: Normocephalic, atraumatic, sclerae anicteric Respiratory: Normal respiratory effort, no accessory muscle use Abdomen: Nondistended, soft, nontender : Carty catheter draining clear yellow urine Skin: Normal coloration, warm and dry Neurologic: No focal neuro deficits noted Psychiatric: Appropriate mood and affect, judgment and insight intact Objective Data Vital Signs Vital Signs: Vital Signs - 24 hr 03/19/24 14:00 03/19/24 22:00 03/20/24 06:00 Temperature 97.1 F L 96.9 F L 96.1 F L Pulse Rate 88 88 69 Respiratory Rate 20 18 16 Blood Pressure 115/78 111/60 122/59 L Pulse Oximetry 95 98 99 Intake/Output Intake/Output: Intake & Output 03/17/24 03/18/24 03/19/24 03/20/24 23:59 23:59 23:59 23:59 Intake Total 600 1070 1050 100 Output Total 775 700 775 250 Balance -175 370 275 -150 Meds/Results Medications: Active Medications Generic Name Dose Route Start Last Admin Trade Name Freq PRN Reason Stop Dose Admin Acetaminophen 650 mg 03/09/24 11:27 03/15/24 17:27 Acetaminophen Elixir 325 Mg/10.15 Ml Udc PO 650 mg Q4H PRN Administration Mild Pain (1-3) or Fever Enoxaparin Sodium 40 mg 03/09/24 09:00 03/19/24 08:14 Enoxaparin 40 Mg/0.4 Ml Syringe SUB-Q 40 mg DAILY TRINITY Administration Ferrous Sulfate 325 mg 03/09/24 17:00 03/19/24 17:49 Ferrous Sulfate Liquid 325 Mg/7.4 Ml Elixir PO 325 mg BID TRINITY Administration Meropenem 1 gm in 100 mls @ 200 mls/hr 03/18/24 14:00 03/20/24 05:33 IVPB Infused Q8H TRINITY Infusion Miscellaneous Information 1 each 03/18/24 00:01 [place] And Hydomorphone Needs To Be Renewed Or It Will Automatically Discontinue. XX 04/17/24 00:00 CLARIFY TRINITY Morphine Sulfate 30 mg 03/13/24 21:00 03/19/24 21:02 Morphine Sulfate (*Crx) 30 Mg Tabcr PO 30 mg Q12HR TRINITY Administration Ondansetron HCl 4 mg 03/08/24 12:56 Ondansetron Inj 4 Mg/2 Ml Vial IV PUSH Q4H PRN Nausea Polyethylene Glycol 17 gm 03/16/24 17:00 03/19/24 08:14 Polyethylene Glycol 3350 17 Gm Powd.Pack PO 17 gm BID PRN Administration Constipation Sodium Chloride 20 ml 03/09/24 01:36 Central Line Flush IV PUSH PRN PRN after blood draws Radiology Results: ITS Impressions Head CT 03/08/24 11:35 IMPRESSION: 1. Normal aging brain. Abdomen/Pelvis CT 03/08/24 11:44 IMPRESSION: 1. 3 mm stone in distal left ureter with mild left hydronephrosis and hydroureter. Cystitis and left-sided pyelitis. 2. Large mass involving the perihepatic lymph node chain and left hepatic lobe, consistent with metastatic disease. 3. Small volume of ascites. 4. Thickened endometrial complex
--- NOTE | 2024-03-20 10:32 | PCNFU ---
Nutrition Follow-Up Complete: Inadequate Oral Intake as related to ab pain/mass as evidenced by poor po intake reported. goal: Meet estimated nutritional needs. Patient will continue current goal. Pt current nutrition is Regular. Last recorded weight is 86.7 kg, down from 87.5 kg on admit. . Bowel Motility: No BM reported. Labs Reviewed: Cr 0.6, Alb 2.4,Na 134 Meds Noted:Lovenox, Meropenem, Miralax, Ferrous Sulfate. Skin: WNL Additional Notes: Patient remains on a regular diet. Intake has been fair. Ensure Enlive are providing an additional 350 kcals and 20 gms protein. Po intake encouraged. Agree with diet orders. Will monitor weight, labs, skin, oral intake, meds every 5 days.
[2024-03-20] MEDS: MORPHINE SULFATE (*CRX) 30 MG TABCR PO ×2 (11:09→20:47)
[2024-03-20] MEDS: TAMSULOSIN HCL 0.4 MG CAPSULE PO (11:09)
[2024-03-20] MEDS: FERROUS SULFATE LIQUID 325 MG/7.4 ML ELIXIR PO ×2 (11:09→17:38)
[2024-03-20] MEDS: ENOXAPARIN 40 MG/0.4 ML SYRINGE SUB-Q (11:09)
--- NOTE | 2024-03-20 13:25 | PM.IMPN ---
Progress Note: A&P Assessment and Plan (1) Septic shock: Code(s): A41.9 - Sepsis, unspecified organism; R65.21 - Severe sepsis with septic shock Status: Acute (2) UTI (urinary tract infection): Code(s): N39.0 - Urinary tract infection, site not specified Status: Acute (3) Hydronephrosis, left: Code(s): N13.30 - Unspecified hydronephrosis Status: Acute Plan # Septic shock, Secondary to UTI, cystitis and left-sided pyelitis Patient also had 3 mm left ureteral stone with hydronephrosis now status post stent placement by Urology Empiric broad spectrum antibiotics with meropenem since in March 08 Blood and urine Cultures : no growth Patient has received close to 6 L and will hold further IV fluids at this time Monitor urine output electrolytes and creatinine Her lactic acid level has normalized weaned off Levophed , and MAP > 65 Sepsis has resolved, patient is afebrile, blood pressure stable X-ray showed Bilateral internal ureteral stents in expected position with 5 mm at 4 mm stones projecting over the upper pole of the left kidney, no small bowel obstruction, 03/12 Leukocytosis persists, but patient is afebrile, but blood culture urine culture do not have bilateral growth. Follow-up procalcitonins: trending down to 1 c/w abx now Leukocytosis likely secondary to infection and also reaction to the cancer continues to worsen Will re-scann recheck procalcitonin inch improves repeat CT shows persistent distal ureteral stone with mild hydronephrosis left side Switch back to meropenem and WBC count improves Await Urology recommendation with regard to kidney stones added cyst to facilitate stone # Intractable abdomen pain CT abdomen pelvis 03/08/2024 with large mass involving perihepatic lymph node chain and left hepatic lobe consistent with metastatic disease. Thickened endometrial complex suspicious for endometrial carcinoma. Intractable right upper quadrant abdomen pain, possible due to liver cancer Start MS Contin 30 mg b.i.d. p.o. Continue Dilaudid IV p.r.n. for breakthrough pain Pain is well controlled # Endometrial carcinoma and a liver mass 10 cm large mass in the uterus. CA 125 is elevated at 306. Patient has active vaginal bleeding And also has intractable right upper quadrant pain Consult die cast patternmaker and oncologist for evaluation treatment Appreciate OBGYN consultation, agricultural equipment sales manager considers liver mass is unlikely related to do endometrial issue. D&C hysteroscopy per geotechnicial properties technician,Pathology with benign endometrial polyp inactive endometrium with cystic changes negative for malignancy. 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 # Metabolic encephalopathy: Patient now alert oriented x3 Head CT and ammonia level normal Resolved # Electrolyte abnormality: Replace low potassium Corrected # Hydronephrosis, left: Left ureteral stone: Underwent cystoscopy with bilateral ureteral stent placement on 03/08/24 and tolerated this well. Status post stent removal 03/17/2024 # UTI (urinary tract infection): dc pt when approved by Urologist Leukocytosis still persistent and worsened. Pancultured. Chest x-ray with diffuse interstitial pattern in lungs airspace opacities in the perihilar region and left lower lung zone could be combination of atelectasis and mild pulmonary edema. No localizing symptom present currently. On Augmentin since 03/09 4203/17 was treated with meropenem 03/08 to 03/13. Switch back to meropenem. Rescanned with the appearance of left hydronephrosis and persistent left distal ureteral stone. Subjective Date/time seen: 03/20/24 13:25 Interval history: No new complaints. Remains afebrile. No abdominal pain nausea vomiting. Review of Systems Review of Systems: All system
[2024-03-20 14:00] VITALS: BP 123/75; PULSE 115; RESP 18; TEMP 36.9; O2SAT 92
[2024-03-20 20:50] VITALS: BP 122/72; PULSE 87; RESP 16; TEMP 35.6; O2SAT 99
[2024-03-21] VITALS (14 sets, daily range): BP systolic 92–138; BP diastolic 59–81; PULSE 79–97; RESP 12–18; TEMP 36–36.6; O2SAT 95–100
[2024-03-21] MEDS: MEROPENEM 1 GM/NS 100 ML 1 GM/100 ML BAG IVPB ×3 (05:35→20:33)
[2024-03-21 05:57] LABS: Basophils Absolute Auto 0.1 K/mm3 (0.0-0.1); Basophils Percent Auto 0.3 % (0.2-1.2); Eosinophils Percent Auto 0.2 % (0-4.4); Hematocrit 34.1 % (37.0-47.0); Hemoglobin 10.6 g/dL (12.0-15.0); Immature Granulocyte Absolute 0.11 K/mm3 (0.00-0.031); Immature Granulocyte Percent A 0.6 % (0-0.5); Lymphocytes Absolute Auto 1.04 K/mm3 (0.9-3.2); Lymphocytes Percent Auto 5.5 % (18.3-44.2); Mean Corpuscular HGB Conc 31.1 g/dl (32-36); Mean Corpuscular Volume 93.4 fl (80-100); Mean Platelet Volume 9.3 fl (7.4-10.4); Monocytes Absolute Auto 0.7 K/mm3 (0.1-0.6); Monocytes Percent Auto 3.8 % (2.6-8.5); Neutrophils Absolute Auto 16.8 K/mm3 (1.3-6.7); Neutrophils Percent Auto 89.6 % (45.5-73.1); Platelet Count Result 199 k/mm3 (150-375); Red Blood Count 3.65 M/mm3 (4.2-5.4); Red Cell Distribution Width 16.8 % (11.5-14.5); White Blood Count 18.8 K/mm3 (4.5-10.0)
[2024-03-21 06:15] LABS: Alanine Aminotransferase 10 U/L (6-35); Albumin Level 2.5 g/dL (3.5-5.1); Alkaline Phosphatase 140 U/L (38-126); Anion Gap 3 mmol/L (4-12); Aspartate Amino Transferase 22 U/L (14-36); Bilirubin,Total 0.7 mg/dL (0.2-1.3); Blood Urea Nitrogen 13 mg/dL (7-17); Calcium 10.9 mg/dL (8.4-10.2); Carbon Dioxide 30 mmol/L (22-30); Chloride 105 mmol/L (98-107); Estimated CRCL calculation 85 ml/min; Estimated Glomerular Filt Rate > 60; Glucose 93 mg/dL (65-110); Magnesium 2.4 mg/dL (1.6-2.3); Potassium 3.5 mmol/L (3.4-5.0); Sodium 138 mmol/L (137-145)
--- NOTE | 2024-03-21 09:45 | WPDUROPN2 ---
Progress Note: A&P Assessment and Plan (1) Hydronephrosis, left: Code(s): N13.30 - Unspecified hydronephrosis Status: Acute (2) Left ureteral stone: Code(s): N20.1 - Calculus of ureter Status: Acute Assessment and Plan: Underwent cysto with bilateral stent removal on 03/17/[address] chest/abdomen/pelvis for evaluation of increased leukocytosis demonstrated 2 mm stone in distal left ureter with mild left hydro. Also shows mild gas in the ureter which is likely due to recent instrumentation Will plan for cystoscopy with left ureteroscopy, possible laser lithotripsy/stone removal, possible left stent placement this afternoon with Dr. Hdez. Continue NPO diet. Subjective Subjective Date/Time Seen: 03/21/24 09:45 Interval history: Complains of back pain and headache today. Unfortunately had a fall this morning. Denies flank pain, abdominal pain, suprapubic pain, nausea, vomiting, fever, or chills. No issues with Carty catheter. Review of Systems Review of Systems: All systems reviewed & are unremarkable except as noted in HPI and below Exam Narrative: General: Awake, alert, comfortable, no acute distress HEENT: Normocephalic, atraumatic, sclerae anicteric Respiratory: Normal respiratory effort, no accessory muscle use Abdomen: Nondistended, soft, nontender : Carty catheter draining clear yellow urine Skin: Normal coloration, warm and dry Neurologic: No focal neuro deficits noted Psychiatric: Appropriate mood and affect, judgment and insight intact Objective Data Vital Signs Vital Signs: Vital Signs - 24 hr 03/20/24 11:33 03/20/24 14:00 03/20/24 20:50 Temperature 98.4 F 96.0 F L Pulse Rate 115 H 87 Respiratory Rate 18 16 Blood Pressure 123/75 122/72 Pulse Oximetry 92 99 Oxygen Delivery Room Air 03/20/24 20:00 03/21/24 06:00 03/21/24 07:48 Temperature 97.2 F L 96.8 F L Pulse Rate 80 97 Respiratory Rate 16 16 Blood Pressure 138/76 137/81 Pulse Oximetry 99 100 Oxygen Delivery Room Air 03/21/24 07:46 Temperature 96.8 F L Pulse Rate 97 Respiratory Rate 16 Blood Pressure 137/81 Pulse Oximetry 100 Oxygen Delivery Intake/Output Intake/Output: Intake & Output 03/18/24 03/19/24 03/20/24 03/21/24 23:59 23:59 23:59 23:59 Intake Total 1070 1050 980 220 Output Total 700 775 525 300 Balance 370 275 455 -80 Meds/Results Medications: Active Medications Generic Name Dose Route Start Last Admin Trade Name Freq PRN Reason Stop Dose Admin Acetaminophen 650 mg 03/09/24 11:27 03/15/24 17:27 Acetaminophen Elixir 325 Mg/10.15 Ml Udc PO 650 mg Q4H PRN Administration Mild Pain (1-3) or Fever Enoxaparin Sodium 40 mg 03/09/24 09:00 03/20/24 11:09 Enoxaparin 40 Mg/0.4 Ml Syringe SUB-Q 40 mg DAILY TRINITY Administration Ferrous Sulfate 325 mg 03/09/24 17:00 03/20/24 17:38 Ferrous Sulfate Liquid 325 Mg/7.4 Ml Elixir PO 325 mg BID TRINITY Administration Meropenem 1 gm in 100 mls @ 200 mls/hr 03/18/24 14:00 03/21/24 06:05 IVPB Infused Q8H TRINITY Infusion Morphine Sulfate 30 mg 03/13/24 21:00 03/20/24 20:47 Morphine Sulfate (*Crx) 30 Mg Tabcr PO 30 mg Q12HR TRINITY Administration Ondansetron HCl 4 mg 03/08/24 12:56 Ondansetron Inj 4 Mg/2 Ml Vial IV PUSH Q4H PRN Nausea Polyethylene Glycol 17 gm 03/16/24 17:00 03/19/24 08:14 Polyethylene Glycol 3350 17 Gm Powd.Pack PO 17 gm BID PRN Administration Constipation Sodium Chloride 20 ml 03/09/24 01:36 Central Line Flush IV PUSH PRN PRN after blood draws Tamsulosin HCl 0.4 mg 03/20/24 09:45 03/20/24 11:09 Tamsulosin Hcl 0.4 Mg Capsule PO 0.4 mg QAM TRINITY Administration Radiology Results: ITS Impressions Abdomen/Pelvis CT 03/08/24 11:44 IMPRESSION: 1. 3 mm stone in distal left ureter with mild left hydronephrosis and hydroureter. Cystitis and left-sided pyelitis. 2. Large mass inv
[2024-03-21] MEDS: FERROUS SULFATE LIQUID 325 MG/7.4 ML ELIXIR PO ×2 (09:58→16:52)
[2024-03-21] MEDS: TAMSULOSIN HCL 0.4 MG CAPSULE PO (09:58)
[2024-03-21] MEDS: MORPHINE SULFATE (*CRX) 30 MG TABCR PO ×2 (09:58→20:33)
--- NOTE | 2024-03-21 10:40 | PC.NURSE ---
Patient transferred off unit for surgery
--- NOTE | 2024-03-21 10:40 | PC.NURSE ---
Called Delia (Daughter, POA) for consent for surgery.
--- NOTE | 2024-03-21 10:42 | WPDHPUPDATE1 ---
History and Physical Update Update Date/Time: 03/21/24 10:42 History and Physical has been reviewed, including an updated exam of the patient. There are NO changes in the patient's condition. Risks, benefits, and alternatives have been discussed and questions answered. Patient agrees to proceed with procedure. Proceed with cystoscopy, left retrograde, left ureteroscopy with stone extraction, possible stent placement
--- NOTE | 2024-03-21 10:49 | WPDANESEPPF ---
Anes - Initial Pre Proc Eval Procedure: Operation Date: 03/08/24 15:00 Proposed Procedures p Cystoscopy, Left Stent Placement - Ike Ivy MD Operation Date: 03/14/24 17:45 Proposed Procedures p Hysteroscopy, Dilation and Curettage - Dalila Reyes MD Operation Date: 03/17/24 10:00 Proposed Procedures p Insertion Lian Cath - Paige Buck MD Operation Date: 03/21/24 11:00 Proposed Procedures p Cystoscopy, Left Ureteroscopy, Possible Left Retrograde Pyelogram, Possible Left Stone Extraction, Possible Left Stent Placement, Possible Holmium Laser - Gabriel Hdez MD Date/Time: 03/21/24 10:49 Surgeon: Santos Ramires MD Pre Op Diagnosis: ABDOMINAL PAIN Patient Data Age: 64 Gender: F Height: 1.78 m Weight: 87.9 kg Last Vital Signs Temp 36.0 C L 03/21/24 07:48 Pulse 97 03/21/24 07:48 Resp 16 03/21/24 07:48 BP 137/81 03/21/24 07:48 Pulse Ox 100 03/21/24 07:48 O2 Del Method Room Air 03/20/24 20:00 O2 Flow Rate 10 03/17/24 11:15 Allergies Allergy/AdvReac Type Severity Reaction Status Date / Time No Known Allergies Allergy Verified 03/08/24 14:25 Home Medications Medication Instructions Recorded Confirmed Type No Home Medications 03/09/24 03/09/24 History Laboratory Tests 03/21/24 05:38 WBC 18.8 H K/mm3 (4.5-10.0) RBC 3.65 L M/mm3 (4.2-5.4) Hgb 10.6 L g/dL (12.0-15.0) Hct 34.1 L % (37.0-47.0) MCV 93.4 D fl (80-100) MCH 29.0 pg (26-34) MCHC 31.1 L g/dl (32-36) RDW 16.8 H % (11.5-14.5) Plt Count 199 k/mm3 (150-375) MPV 9.3 fl (7.4-10.4) Immature Gran % (Auto) 0.6 H % (0-0.5) Neut % (Auto) 89.6 H % (45.5-73.1) Lymph % (Auto) 5.5 L % (18.3-44.2) [place]mer % (Auto) 3.8 % (2.6-8.5) Eos % (Auto) 0.2 % (0-4.4) Baso % (Auto) 0.3 % (0.2-1.2) Lymph # (Auto) 1.04 K/mm3 (0.9-3.2) [place]mer # (Auto) 0.7 H K/mm3 (0.1-0.6) Eos # (Auto) 0.0 K/mm3 (0-0.3) Baso # (Auto) 0.1 K/mm3 (0.0-0.1) Abs Immat Gran (auto) 0.11 H K/mm3 (0.00-0.031) Absolute Neuts (auto) 16.8 H K/mm3 (1.3-6.7) Absolute Nucleated RBC 0.000 K/mm3 (0.0-0.012) Nucleated RBC % 0.0 % (0.0-0.2) Sodium 138 mmol/L (137-145) Potassium 3.5 mmol/L (3.4-5.0) Chloride 105 mmol/L (98-107) Carbon Dioxide 30 mmol/L (22-30) Anion Gap 3 L mmol/L (4-12) BUN 13 mg/dL (7-17) Creatinine 0.60 L mg/dL (0.7-1.0) Estim Creat Clear Calc 85 ml/min Estimated GFR > 60 (59 - ) Glucose 93 mg/dL (65-110) Calcium 10.9 H mg/dL (8.4-10.2) Magnesium 2.4 H mg/dL (1.6-2.3) Total Bilirubin 0.7 mg/dL (0.2-1.3) AST 22 U/L (14-36) ALT 10 U/L (6-35) Alkaline Phosphatase 140 H U/L (38-126) Total Protein 6.0 L g/dL (6.3-8.2) Albumin 2.5 L g/dL (3.5-5.1) Patient hx anesthesia problems: none Family hx anesthesia problems: none Results Review: All pre-operative results and documents have been reviewed as part of the pre-operative evaluation. [facility] Past Medical History Medical History Abdominal mass large mass involving the perihepatic lymph node chain and left hepatic lobe, first seen on CT on 01/21/24 Social History Social History Spiritual care concerns: No Anes - Eval Final PreProcedure Day of Procedure 03/21/24 10:49 Patient weight: overweight Heart: regular rate and rhythm Lungs: decreased breath sounds Airway: Mallampati scale class II Neurological: lethargic Last oral intake: >/= 8 hours ASA classification: IV Emergent: no Anesthetic plan: proceed Anesthesia type and monitoring: general LMA and standard monitoring Results Review: All pre-operative results and documents have been reviewed as part of the pre-operative evaluation. Informed
[2024-03-21] MEDS: LACTATED RINGERS 1,000 ML 30 ML IV CONT (10:55)
[2024-03-21] MEDS: LIDOCAINE HCL 2% GEL UROJET 10 ML PKG MUCOUS MEM (11:15)
--- NOTE | 2024-03-21 11:31 | P.OP_ITS ---
Procedure Note - Detailed Date of Procedure 03/21/24 Pre-op Diagnosis Left ureteral calculus Post-op Diagnosis Same Procedure Performed Cystoscopy, left retrograde pyelogram, left ureteroscopy with stone extraction, left ureteral stent placement 4.8 [place] contour Surgeon Gabriel Hdez MD Anesthesia General Description of Procedure Patient was taken to the operative suite correctly identified. Once anesthesia was obtained she was placed in dorsal lithotomy position and prepped draped usual sterile fashion. Nineteen [place] scope was inserted the bladder. Left ureteral orifice was cannulated with a guidewire. Dilated with an 8/10 dilator. Rigid ureteral scope was inserted 2-3 mm stone was seen. Simply with the ureteral scope in place a was able to manipulate the stone out. This was then retrieved and sent for analysis. The entire ureter was reinspected without any residual stones present. Pyelogram was then performed to confirm placement of the stent. 4.8 [place] contour stent was placed with the proximal end coiled in the renal pelvis distal in the bladder. String was left attached. 2% viscous lidocaine was inserted into the urethra. Sixteen [place] Carty was replaced with 10 cc in the balloon. She is taken recovery stable condition. Will plan on removing the stent and 2-3 days or possibly Wednesday. This completes dictation. Please send a copy of op note to the office. Estimated Blood Loss 50 Urine Output 100 Drains Yes Packing No Pathology Yes Complications No immediate complications Condition Stable Disposition PACU
--- NOTE | 2024-03-21 17:36 | PM.IMPN ---
Progress Note: A&P Assessment and Plan (1) Septic shock: Code(s): A41.9 - Sepsis, unspecified organism; R65.21 - Severe sepsis with septic shock Status: Acute (2) UTI (urinary tract infection): Code(s): N39.0 - Urinary tract infection, site not specified Status: Acute (3) Hydronephrosis, left: Code(s): N13.30 - Unspecified hydronephrosis Status: Acute Plan # Septic shock, Secondary to UTI, cystitis and left-sided pyelitis Patient also had 3 mm left ureteral stone with hydronephrosis now status post stent placement by Urology [facility] broad spectrum antibiotics with meropenem since in March 08 Blood and urine Cultures : no growth Patient has received close to 6 L and will hold further IV fluids at this time Monitor urine output electrolytes and creatinine Her lactic acid level has normalized weaned off Levophed , and MAP > 65 Sepsis has resolved, patient is afebrile, blood pressure stable X-ray showed Bilateral internal ureteral stents in expected position with 5 mm at 4 mm stones projecting over the upper pole of the left kidney, no small bowel obstruction, 03/12 Leukocytosis persists, but patient is afebrile, but blood culture urine culture do not have bilateral growth. Follow-up procalcitonins: trending down to 1 c/w abx now Leukocytosis likely secondary to infection and also reaction to the cancer continues to worsen Will re-scann recheck procalcitonin inch improves repeat CT shows persistent distal ureteral stone with mild hydronephrosis left side Switch back to meropenem and WBC count improves to some extent but still remains persistent Underwent cystoscopy and stone extraction with stent placement 03/21/2024 Recheck CBC in a.m. # Intractable abdomen pain CT abdomen pelvis 03/08/2024 with large mass involving perihepatic lymph node chain and left hepatic lobe consistent with metastatic disease. Thickened endometrial complex suspicious for endometrial carcinoma. Intractable right upper quadrant abdomen pain, possible due to liver cancer Start MS Contin 30 mg b.i.d. p.o. Continue Dilaudid IV p.r.n. for breakthrough pain Pain is well controlled # Endometrial carcinoma and a liver mass 10 cm large mass in the uterus. CA 125 is elevated at 306. Patient has active vaginal bleeding And also has intractable right upper quadrant pain Consult assembler musical equipment and oncologist for evaluation treatment Appreciate OBGYN consultation, copper miner considers liver mass is unlikely related to do endometrial issue. D&C hysteroscopy per director data analytics,Pathology with benign endometrial polyp inactive endometrium with cystic changes negative for malignancy. 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 # Metabolic encephalopathy: Patient now alert oriented x3 Head CT and ammonia level normal Resolved # Electrolyte abnormality: Replace low potassium Corrected # Hydronephrosis, left: Left ureteral stone: Underwent cystoscopy with bilateral ureteral stent placement on 03/08/24 and tolerated this well. Status post stent removal 03/17/2024 # UTI (urinary tract infection): On meropenem currently cultures as negative Subjective Date/time seen: 03/21/24 17:36 Interval history: This a.m. she had an imbalance and fell and hit her head. Had hematoma on back of her head she underwent stent placement and stone extraction this afternoon. Review of Systems Review of Systems: All systems reviewed & are unremarkable except as noted in HPI and below Exam Narrative: GENERAL: well-appearing, in no acute distress. Well-nourished. - EYES: EOMI. Anicteric. - HENT: Moist mucous membranes. - LUNGS: Clear to auscultation bilaterally, no wheezing, rhonchi, or rales. - CARDIOVASCULAR: Regular rate and rhythm. No mu
[2024-03-22] MEDS: MEROPENEM 1 GM/NS 100 ML 1 GM/100 ML BAG IVPB ×3 (05:08→21:49)
[2024-03-22 05:10] VITALS: BP 128/66; PULSE 90; RESP 16; TEMP 36.7; O2SAT 96
[2024-03-22 06:00] LABS: Basophils Absolute Auto 0.1 K/mm3 (0.0-0.1); Basophils Percent Auto 0.2 % (0.2-1.2); Eosinophils Percent Auto 0.1 % (0-4.4); Hematocrit 35.7 % (37.0-47.0); Hemoglobin 11.2 g/dL (12.0-15.0); Immature Granulocyte Absolute 0.17 K/mm3 (0.00-0.031); Immature Granulocyte Percent A 0.7 % (0-0.5); Lymphocytes Absolute Auto 0.99 K/mm3 (0.9-3.2); Lymphocytes Percent Auto 4.1 % (18.3-44.2); Mean Corpuscular HGB Conc 31.4 g/dl (32-36); Mean Corpuscular Hemoglobin 28.9 pg (26-34); Mean Platelet Volume 9.5 fl (7.4-10.4); Monocytes Absolute Auto 0.8 K/mm3 (0.1-0.6); Monocytes Percent Auto 3.5 % (2.6-8.5); Neutrophils Absolute Auto 22.2 K/mm3 (1.3-6.7); Neutrophils Percent Auto 91.4 % (45.5-73.1); Platelet Count Result 215 k/mm3 (150-375); Red Blood Count 3.88 M/mm3 (4.2-5.4); Red Cell Distribution Width 17.2 % (11.5-14.5); White Blood Count 24.3 K/mm3 (4.5-10.0)
[2024-03-22 06:19] LABS: Alanine Aminotransferase 10 U/L (6-35); Albumin Level 2.6 g/dL (3.5-5.1); Alkaline Phosphatase 143 U/L (38-126); Anion Gap 4 mmol/L (4-12); Aspartate Amino Transferase 23 U/L (14-36); Bilirubin,Total 0.7 mg/dL (0.2-1.3); Blood Urea Nitrogen 11 mg/dL (7-17); Calcium 10.8 mg/dL (8.4-10.2); Carbon Dioxide 29 mmol/L (22-30); Chloride 106 mmol/L (98-107); Estimated CRCL calculation 85 ml/min; Estimated Glomerular Filt Rate > 60; Glucose 87 mg/dL (65-110); Magnesium 2.4 mg/dL (1.6-2.3); Potassium 3.3 mmol/L (3.4-5.0); Sodium 139 mmol/L (137-145)
[2024-03-22] MEDS: ENOXAPARIN 40 MG/0.4 ML SYRINGE SUB-Q (08:29)
[2024-03-22] MEDS: TAMSULOSIN HCL 0.4 MG CAPSULE PO (08:29)
[2024-03-22] MEDS: FERROUS SULFATE LIQUID 325 MG/7.4 ML ELIXIR PO (08:29)
[2024-03-22] MEDS: polyethylene glycoL 3350 17 GM POWD.PACK PO (08:45)
--- NOTE | 2024-03-22 09:58 | WPDUROPN2 ---
Progress Note: A&P Assessment and Plan (1) Hydronephrosis, left: Code(s): N13.30 - Unspecified hydronephrosis Status: Acute (2) Left ureteral stone: Code(s): N20.1 - Calculus of ureter Status: Acute Assessment and Plan: Underwent cysto with bilateral stent removal on 03/17/[address] chest/abdomen/pelvis for evaluation of increased leukocytosis demonstrated 2 mm stone in distal left ureter with mild left hydro. Underwent cystoscopy, left retrograde pyelogram, left ureteroscopy with stone extraction and left ureteral stent placement on 03/21/[address] Hdez. She tolerated the procedure well Will plan for stent removal on 03/24/2024 Subjective Subjective Date/Time Seen: 03/22/24 09:58 Interval history: Cheyanne is more confused today. Not able to provide any history. Sitting up eating breakfast. Review of Systems Review of Systems: ROS unobtainable: Yes unobtainable due to mental status Exam Narrative: General: Awake, comfortable, no acute distress HEENT: Normocephalic, atraumatic, sclerae anicteric Respiratory: Normal respiratory effort, no accessory muscle use Abdomen: Nondistended, soft, nontender : Carty catheter draining bloody urine without clots Skin: Normal coloration, warm and dry Neurologic: No focal neuro deficits noted, confused Objective Data Vital Signs Vital Signs: Vital Signs - 24 hr 03/21/24 10:53 03/21/24 11:32 03/21/24 11:45 Temperature 97.0 F L Pulse Rate 88 85 79 Respiratory Rate 16 18 Blood Pressure 129/63 94/62 L 92/59 L Pulse Oximetry 95 99 100 Oxygen Delivery Room Air Simple Face Mask Simple Face Mask Oxygen Flow Rate 8 8 03/21/24 12:00 03/21/24 12:15 03/21/24 12:30 Temperature Pulse Rate 82 82 82 Respiratory Rate 12 14 16 Blood Pressure 116/72 113/74 113/74 Pulse Oximetry 100 99 100 Oxygen Delivery Nasal Cannula Nasal Cannula Nasal Cannula Oxygen Flow Rate 2 2 2 03/21/24 12:45 03/21/24 12:53 03/21/24 14:00 Temperature 97.5 F L Pulse Rate 81 81 84 Respiratory Rate 12 12 18 Blood Pressure 137/76 123/70 130/72 Pulse Oximetry 99 100 97 Oxygen Delivery Nasal Cannula Nasal Cannula Oxygen Flow Rate 2 2 03/21/24 20:51 03/21/24 20:00 03/21/24 21:48 Temperature 97.9 F Pulse Rate 87 Respiratory Rate 18 Blood Pressure 130/72 Pulse Oximetry 95 95 Oxygen Delivery Room Air Room Air Oxygen Flow Rate 03/22/24 05:10 Temperature 98.1 F Pulse Rate 90 Respiratory Rate 16 Blood Pressure 128/66 Pulse Oximetry 96 Oxygen Delivery Oxygen Flow Rate Intake/Output Intake/Output: Intake & Output 03/19/24 03/20/24 03/21/24 03/22/24 23:59 23:59 23:59 23:59 Intake Total 1371 963 7265 50 Output Total 775 525 605 275 Balance 275 134 515 -225 Meds/Results Medications: Active Medications Generic Name Dose Route Start Last Admin Trade Name Freq PRN Reason Stop Dose Admin Acetaminophen 650 mg 03/09/24 11:27 03/15/24 17:27 Acetaminophen Elixir 325 Mg/10.15 Ml Udc PO 650 mg Q4H PRN Administration Mild Pain (1-3) or Fever Enoxaparin Sodium 40 mg 03/09/24 09:00 03/22/24 08:29 Enoxaparin 40 Mg/0.4 Ml Syringe SUB-Q 40 mg DAILY TRINITY Administration Fentanyl Citrate 25 mcg 03/21/24 10:52 Fentanyl Citrate Inj (*Crx) 100 Mcg/2 Ml Vial IV PUSH Q2M PRN Pain Ferrous Sulfate 325 mg 03/09/24 17:00 03/22/24 08:29 Ferrous Sulfate Liquid 325 Mg/7.4 Ml Elixir PO 325 mg BID TRINITY Administration Meropenem 1 gm in 100 mls @ 200 mls/hr 03/18/24 14:00 03/22/24 05:08 IVPB 200 mls/hr Q8H TRINITY Administration Lactated Ringer's 1,000 mls @ 30 mls/hr 03/21/24 10:55 03/21/24 12:55 Lr - Lactated Ringers Iv IV CONT Infused .Q24H TRINITY Infusion Morphine Sulfate 30 mg 03/13/24 21:00 03/21/24 20:33 Morphine Sulfate (*Crx) 30 Mg Tabcr PO 30 mg Q12HR TRINITY Administration Ondansetron HCl 4 mg 06/19/24 12:56 Ondansetron Inj 4 Mg/2
--- NOTE | 2024-03-22 11:27 | PCOTNOTE ---
Attempted to see pt for Occupational Therapy treatment. Pt is currently out of room for CT scan. Will attempt later per poc duration/frequency.
--- NOTE | 2024-03-22 11:53 | PCPTNOTE ---
The patient treatment was not able to be completed at this time due to RN waiting for Head/Neck CTA test results before participating in therapy. Will plan to continue treatment per plan of care.
--- NOTE | 2024-03-22 13:11 | PM.IMPN ---
Progress Note: A&P Assessment and Plan (1) Septic shock: Code(s): A41.9 - Sepsis, unspecified organism; R65.21 - Severe sepsis with septic shock Status: Acute Assessment and Plan: # Septic shock, Secondary to UTI, cystitis and left-sided pyelitis Patient also had 3 mm left ureteral stone with hydronephrosis now status post stent placement by Urology [facility] broad spectrum antibiotics with meropenem since in March 08 Blood and urine Cultures : no growth Patient has received close to 6 L and will hold further IV fluids at this time Monitor urine output electrolytes and creatinine Her lactic acid level has normalized weaned off Levophed , and MAP > 65 Sepsis has resolved (2) UTI (urinary tract infection): Code(s): N39.0 - Urinary tract infection, site not specified Status: Acute Assessment and Plan: Leukocytosis likely secondary to infection and also reaction to the cancer continues to worsen Will re-scann recheck procalcitonin inch improves repeat CT shows persistent distal ureteral stone with mild hydronephrosis left side Switch back to meropenem and WBC count improves to some extent but still remains persistent Underwent cystoscopy and stone extraction with stent placement 03/21/2024 [place] [id number] rpt adilia X-ray showed Bilateral internal ureteral stents in expected position with 5 mm at 4 mm stones projecting over the upper pole of the left kidney, no small bowel obstruction, 03/12 Leukocytosis persists, but patient is afebrile, but blood culture urine culture do not have bilateral growth. # UTI (urinary tract infection): On meropenem currently cultures as negative Wcc still high continue present care watch WCC ? wcc due to cancer state (3) Hydronephrosis, left: Code(s): N13.30 - Unspecified hydronephrosis Status: Acute Assessment and Plan: # Hydronephrosis, left: Left ureteral stone: Underwent cystoscopy with bilateral ureteral stent placement on 03/08/24 and tolerated this well. Status post stent removal 03/17/2024 Plan # Intractable abdomen pain CT abdomen pelvis 03/08/2024 with large mass involving perihepatic lymph node chain and left hepatic lobe consistent with metastatic disease. Thickened endometrial complex suspicious for endometrial carcinoma. Intractable right upper quadrant abdomen pain, possible due to liver cancer Start MS Contin 30 mg b.i.d. p.o. Continue Dilaudid IV p.r.n. for breakthrough pain Pain is well controlled # Endometrial carcinoma and a liver mass 10 cm large mass in the uterus. CA 125 is elevated at 306. Patient has active vaginal bleeding And also has intractable right upper quadrant pain Consult dental office coordinator and oncologist for evaluation treatment Appreciate OBGYN consultation, administrative operations coordinator considers liver mass is unlikely related to do endometrial issue. D&C hysteroscopy per mechanical systems engineer,Pathology with benign endometrial polyp inactive endometrium with cystic changes negative for malignancy. 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 # Metabolic encephalopathy: worsening stat CT head and CTA orderd to rule out stroke Neurology consulted for ongoing confusion # Electrolyte abnormality: Replace low potassium continue to replace Subjective Date/time seen: 03/22/24 13:11 Interval history: Pt is disoriented x3 speech is slurred and garbled Stat CT head and CTA ordered Pt did have a fall on her head yesterday CT head then was negative Review of Systems Review of Systems: disoriented speech is garbled Exam Narrative: GENERAL: confused and garbled speech - EYES: EOMI. Anicteric. - HENT: Moist mucous membranes. - LUNGS: Clear to auscultation bilaterally, no wheezing, rhonchi, or rale
--- NOTE | 2024-03-22 14:34 | WPDNEURCNPN ---
Assessment and Plan Assessment and plan (1) Metabolic encephalopathy: Code(s): G93.41 - Metabolic encephalopathy Status: Acute Plan Encephalopathy in addition to multiple medical problems CTA has been done which revealed no major territorial involvement will obtain the routine EEG and continue the treatment as such Consult date: 03/22/24 HPI: Cheyanne Arenas is a 64 year old femaleAdmitted to the hospital through the emergency room for the acute onset of confusion and with the information she had been seen in the ER 4 weeks ago for the complaints of abdominal pain when she was found to have large mars in the sae hepatis region extending into the pancreatic body and left hepatic lobe as per the CT scan of the abdomen. Patient has had a biopsy done on the day of admission to the ER she was awake but definitely more confused and was brought to the emergency room on initial evaluation in the emergency room she was appearing ill with no meningeal signs no gross focal neurological deficits subsequently seen by the urologist and underwent bilateral ureteral stents placement, she has had the abdomen and pelvis of the CT scan with hepatic and pancreatic mass in additional 3mm stone in the distal left ureter mild left hydronephrosis hydroureter. 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 Most recently she is being treated for the septic shock with UTI left-sided hydronephrosis and intractable abdominal pain basic diagnosis of endometrial carcinoma and a liver mass with metabolic encephalopathy Head neck CTA has been done today because of the encephalopathy which revealed only small right parietal scalp hematoma was unremarkable cerebral CT angiogram with no hemodynamic significant stenosis thrombosis or aneurysm mild ground-glass opacity and is most septal line thickening raise the possibility of bilateral applied ice is suggestive of mild pulmonary edema. regular CT scan of the head is normal without any significant intracranial abnormalities and most recent labs reveals her to have 24.3 1000 WBC with 11.2 hemoglobin platelet count of 215 electrolytes normal potassium 3.3, INR of 1.5 she is receiving morphine, Lovenox, meropenem 1g IV piggyback q.8 hours Flomax 0.4mg every morning. Most recent CT of the head was done because of the fall. She has only a diagnosis endometrial carcinoma with metastatic disease Review of Systems Review of Systems: All systems reviewed & are unremarkable except as noted in HPI and below PMFSH Past Medical History Medical History Abdominal mass large mass involving the perihepatic lymph node chain and left hepatic lobe, first seen on CT on 01/21/24 Social History Social History Spiritual care concerns: No Meds Home Medications and Allergies Home Medications Medication Instructions Recorded Confirmed Type No Home Medications 03/09/24 03/09/24 History Allergies Allergy/AdvReac Type Severity Reaction Status Date / Time No Known Allergies Allergy Verified 03/08/24 14:25 Vital Signs Vital Signs - 24 hr 03/21/24 20:51 03/21/24 20:00 03/21/24 21:48 Temperature 36.6 C Pulse Rate 87 Respiratory Rate 18 Blood Pressure 130/72 Pulse Oximetry 95 95 Oxygen Delivery Room Air Room Air 03/22/24 05:10 03/22/24 08:41 Temperature 36.7 C Pulse Rate 90 Respiratory Rate 16 Blood Pressure 128/66 Pulse Oximetry 96 Oxygen Delivery Room Air Exam Narrative: Exam at this particular time revealed her to be awake alert able to follow the verbal commands such as look to the right side look to the left side his ticket tongue out, head was normocephalic with no bruit ear nose throat examination normal neck is
[2024-03-22 14:40] VITALS: BP 103/57; PULSE 105; RESP 15; TEMP 36.4; O2SAT 92
--- NOTE | 2024-03-22 15:31 | WPDANESPN ---
Anes - Prog Note Post-Op Date/Time: 03/22/24 15:31 Cardiovascular status: normal Respiratory status: normal Airway patency: baseline Mental status: baseline Post-Op hydration status: normal Vital Signs: Last Vital Signs Temp 36.4 C L 03/22/24 14:40 Pulse 105 H 03/22/24 14:40 Resp 15 03/22/24 14:40 BP 103/57 L 03/22/24 14:40 Pulse Ox 92 03/22/24 14:40 O2 Del Method Room Air 03/22/24 08:41 O2 Flow Rate 2 03/21/24 12:53 Pain Score (VAS): 0 I/O: Intake & Output 03/21/24 03/22/24 03/22/24 23:59 07:59 15:59 Intake Total 300 150 Output Total 125 275 Balance 175 -125 Laboratory Tests 03/22/24 05:23 03/22/24 05:23 03/22/24 05:23 WBC 24.3 H RBC 3.88 L Hgb 11.2 L Hct 35.7 L MCV 92.0 MCH 28.9 MCHC 31.4 L RDW 17.2 H Plt Count 215 MPV 9.5 Immature Gran % (Auto) 0.7 H Neut % (Auto) 91.4 H Lymph % (Auto) 4.1 L [place] % (Auto) 3.5 Eos % (Auto) 0.1 Baso % (Auto) 0.2 Lymph # (Auto) 0.99 [place] # (Auto) 0.8 H Eos # (Auto) 0.0 Baso # (Auto) 0.1 Abs Immat Gran (auto) 0.17 H Absolute Neuts (auto) 22.2 H Absolute Nucleated RBC 0.000 Nucleated RBC % 0.0 Sodium 139 Potassium 3.3 L Chloride 106 Carbon Dioxide 29 Anion Gap 4 BUN 11 Creatinine 0.60 L Estim Creat Clear Calc 85 Estimated GFR > 60 Glucose 87 Calcium 10.8 H Magnesium 2.4 H Total Bilirubin 0.7 AST 23 ALT 10 Alkaline Phosphatase 143 H Total Protein 6.0 L Albumin 2.6 L Post-procedural complaints: none Patient Feedback: Patient satisfied with anesthetic care.
[2024-03-22] MEDS: FERROUS SULFATE 325 MG TABLET DR PO (17:30)
[2024-03-22] MEDS: BISACODYL 10 MG SUPPOSITORY RECTAL (18:51)
[2024-03-22] MEDS: POTASSIUM CHLORIDE 20 MEQ ER TABLET 40 MEQ PO (18:51)
[2024-03-22] MEDS: MORPHINE SULFATE (*CRX) 30 MG TABCR PO (21:50)
[2024-03-22 23:16] VITALS: BP 117/66; PULSE 92; RESP 18; TEMP 36.8; O2SAT 97
[2024-03-23] MEDS: MEROPENEM 1 GM/NS 100 ML 1 GM/100 ML BAG IVPB ×3 (05:15→21:16)
[2024-03-23 06:14] VITALS: BP 132/68; PULSE 85; RESP 18; TEMP 36.6; O2SAT 98
[2024-03-23 06:57] LABS: Anion Gap -1 mmol/L (4-12); Blood Urea Nitrogen 10 mg/dL (7-17); Calcium 10.6 mg/dL (8.4-10.2); Carbon Dioxide 31 mmol/L (22-30); Chloride 108 mmol/L (98-107); Estimated CRCL calculation 100 ml/min; Estimated Glomerular Filt Rate > 60; Glucose 103 mg/dL (65-110); Potassium 3.6 mmol/L (3.4-5.0); Sodium 138 mmol/L (137-145)
[2024-03-23 07:01] LABS: Hematocrit 31.1 % (37.0-47.0); Hemoglobin 9.8 g/dL (12.0-15.0); Mean Corpuscular HGB Conc 31.5 g/dl (32-36); Mean Platelet Volume 9.6 fl (7.4-10.4); Platelet Count Result 168 k/mm3 (150-375); Red Blood Count 3.38 M/mm3 (4.2-5.4); Red Cell Distribution Width 17.2 % (11.5-14.5); White Blood Count 18.2 K/mm3 (4.5-10.0)
[2024-03-23] MEDS: FERROUS SULFATE 325 MG TABLET DR PO ×2 (08:22→17:27)
[2024-03-23] MEDS: POTASSIUM CHLORIDE 20 MEQ ER TABLET 40 MEQ PO (08:22)
[2024-03-23] MEDS: TAMSULOSIN HCL 0.4 MG CAPSULE PO (08:22)
[2024-03-23] MEDS: ENOXAPARIN 40 MG/0.4 ML SYRINGE SUB-Q (08:22)
--- NOTE | 2024-03-23 11:11 | PM.IMPN ---
Progress Note: A&P Assessment and Plan (1) Septic shock: Code(s): A41.9 - Sepsis, unspecified organism; R65.21 - Severe sepsis with septic shock Status: Resolved Assessment and Plan: Septic on presentation secondary to cystitis, left pyelitis. Underwent emergent bilateral ureteral stent placement 03/08/2024 and tolerated well Initially admitted to ICU requiring pressors and IV fluid resuscitation which were appropriately weaned Blood and urine cultures negative throughout admission Sepsis resolved. Patient now on medical floor, BP stable. No indication for ongoing IV fluid She remains on meropenem, 1 additional day remaining to complete appropriate course (2) Metastatic disease: Code(s): C79.9 - Secondary malignant neoplasm of unspecified site Status: Acute Assessment and Plan: Prior to admission was found to have a hepatic mass and lymphadenopathy consistent with metastatic disease Underwent liver biopsy on 03/09/2024. Pathology demonstrated carcinoma of unknown primary Underwent port placement on 03/17/2024 Plan is to initiate outpatient chemotherapy Continue analgesics for pain and supportive care (3) UTI (urinary tract infection): Code(s): N39.0 - Urinary tract infection, site not specified Status: Acute Assessment and Plan: Culture negative x2 Given ureteral stones, stent insertion/removal/manipulation, she has been maintained on meropenem which she will continue for 1 additional day, stop date is 03/24/2024 (4) Hydronephrosis, left: Code(s): N13.30 - Unspecified hydronephrosis Status: Acute Assessment and Plan: Initially found to have 3 mm distal left ureteral stone with mild left hydroureteronephrosis and underwent cystoscopy with bilateral retrograde pyelogram, bilateral ureteral stent insertion, and Carty catheter insertion on 03/08/2024 Hydronephrosis had resolved on follow-up imaging 03/10/2024 Underwent cystoscopy with bilateral stent removal on 03/17/2024 Repeat imaging completed on 03/18/2024 due to increased leukocytosis which demonstrated 2 mm distal left ureter stone with mild left hydro Underwent cystoscopy, left retrograde pyelogram, left ureteroscopy with stone extraction, and left ureteral stent placement on 03/21/2024 Planning for left ureteral stent removal on 03/27/2024 (5) Thickened endometrium: Code(s): R93.89 - Abnormal findings on diagnostic imaging of other specified body structures Status: Acute Assessment and Plan: Found to have thickened endometrium of 21 mm Seen by OBGYN during admission and underwent D&C hysteroscopy on 03/14/2024 Pathology revealed benign endometrial polyp, negative for malignancy Per OBGYN, may expect light bleeding x7 days (6) Confusion: Code(s): R41.0 - Disorientation, unspecified Status: Acute Assessment and Plan: Etiology for this is unclear. Has been seen in consultation by Neurology [place] to be multifactorial given her multiple medical problems CTA head neck with no acute findings, 0% stenosis of bilateral carotid bulbs No significant electrolyte derangements Check TSH, B12, folate Monitor mental status closely. Overall greatly improved today, she is A&O x4 (7) Fall: Code(s): W19.XXXA - Unspecified fall, initial encounter Status: Acute Assessment and Plan: Suffered a fall on 03/21/2024. Hit her head but no LOC Head CTA with no acute abnormalities, soft tissue swelling of right parietal scalp Head/neck CTA 03/22/2024 shows small right parietal scalp hematoma with no fracture or acute process Implement fall precautions (8) Leukocytosis: Qualifiers: Leukocytosis type: lymphocytosis Qualified Code(s): D72.820 - Lymphocytosis (symptomatic) Code(s): D72.829 - Elevated white blood cell count, unspecified Status: Inactive Assessment and Plan: Marked elevation in WBC, up to 42.3 during admission.
--- NOTE | 2024-03-23 14:22 | WPDNEUROPN ---
Progress Note: A&P Assessment and Plan (1) Metabolic encephalopathy: Code(s): G93.41 - Metabolic encephalopathy Status: Acute (2) UTI (urinary tract infection): Code(s): N39.0 - Urinary tract infection, site not specified Status: Acute (3) Metastatic disease: Code(s): C79.9 - Secondary malignant neoplasm of unspecified site Status: Acute Plan I would suggest continue with same treatment plan sepsis and workup and management of malignancy. Out suggest checking a B12 and folic acid as the thyroid function test in view of the cognitive impairment. However hopefully she will continue improve.. CT scan of brain and CT angiogram head and neck findings were noted. No acute findings were noted. Small scalp hematoma in the right parietal area was described Subjective Date/time seen: 03/23/24 14:22 Interval history: The patient with history of confusional state subsequently thought to be metabolic encephalopathy on account any a. 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 She has been here in the meanwhile the mental status is improving although not quite back to normal. Patient did not have any also substance very Review of Systems Review of Systems: All systems reviewed & are unremarkable except as noted in HPI and below Exam Narrative: Fully conscious alert appears to have flat affect. Mild cognitive impairment noted unable to follow two-step commands. Cranial nerves you to see intact. Motor system number. No involuntary movements seen. Objective Data Vital Signs Vital Signs: Vital Signs - 24 hr 03/22/24 14:40 03/22/24 23:16 03/22/24 20:00 Temperature 36.4 C L 36.8 C Pulse Rate 105 H 92 Respiratory Rate 15 18 Blood Pressure 103/57 L 117/66 Pulse Oximetry 92 97 Oxygen Delivery Room Air 03/23/24 06:14 03/23/24 08:36 Temperature 36.6 C Pulse Rate 85 Respiratory Rate 18 Blood Pressure 132/68 Pulse Oximetry 98 Oxygen Delivery Room Air Intake/Output Intake/Output: Intake & Output 03/20/24 03/21/24 03/22/24 03/23/24 23:59 23:59 23:59 23:59 Intake Total 980 1120 650 270 Output Total 049 605 775 250 Balance 455 515 -125 20 Meds/Results Medications: Active Medications Generic Name Dose Route Start Last Admin Trade Name Freq PRN Reason Stop Dose Admin Acetaminophen 650 mg 03/09/24 11:27 03/15/24 17:27 Acetaminophen Elixir 325 Mg/10.15 Ml Udc PO 650 mg Q4H PRN Administration Mild Pain (1-3) or Fever Enoxaparin Sodium 40 mg 03/09/24 09:00 03/23/24 08:22 Enoxaparin 40 Mg/0.4 Ml Syringe SUB-Q 40 mg DAILY TRINITY Administration Fentanyl Citrate 25 mcg 03/21/24 10:52 Fentanyl Citrate Inj (*Crx) 100 Mcg/2 Ml Vial IV PUSH Q2M PRN Pain Ferrous Sulfate 325 mg 03/22/24 17:00 03/23/24 08:22 Ferrous Sulfate [address] PO 325 mg BID TRINITY Administration Meropenem 1 gm in 100 mls @ 200 mls/hr 03/18/24 14:00 03/23/24 13:53 IVPB 03/24/24 23:59 200 mls/hr Q8H TRINITY Administration Lactated Ringer's 1,000 mls @ 30 mls/hr 03/21/24 10:55 03/21/24 12:55 Lr - Lactated Ringers Iv IV CONT Infused .Q24H TRINITY Infusion Morphine Sulfate 30 mg 03/22/24 15:11 03/22/24 21:50 Morphine Sulfate (*Crx) 30 Mg Tabcr PO 30 mg Q12HR PRN Administration pain of 4-10 Ondansetron HCl 4 mg 03/08/24 12:56 Ondansetron Inj 4 Mg/2 Ml Vial IV PUSH Q4H PRN Nausea Ondansetron HCl 4 mg 03/21/24 10:52 Ondansetron Inj 4 Mg/2 Ml Vial IV PUSH ONCE PRN Nausea Polyethylene Glycol 17 gm 03/16/24 17:00 03/22/24 08:45 Polyethylene Glycol 3350 17 Gm Powd.Pack PO 17 gm BID PRN Administration Constipation Potassium Chloride 40 meq 03/23/24 09:00 03/23/24 08:22 Potassium Chloride 20 Meq Er Tablet PO 40 meq DAILY TRINITY Administration Sodium Chloride 20 ml 03/09/24 01:36 Central Line Flush IV PUSH PRN PRN after blood draws
[2024-03-23 15:16] VITALS: BP 108/59; PULSE 96; RESP 18; TEMP 36.1; O2SAT 92
[2024-03-23 18:35] LABS: Vitamin D 25 Hydroxy < 12.8 ng/mL
[2024-03-23 19:39] VITALS: BP 109/68; PULSE 95; RESP 20; TEMP 36.1; O2SAT 99
[2024-03-24 05:10] VITALS: BP 118/60; PULSE 80; RESP 20; TEMP 36.1; O2SAT 97
[2024-03-24] MEDS: MEROPENEM 1 GM/NS 100 ML 1 GM/100 ML BAG IVPB ×3 (05:11→21:01)
[2024-03-24 06:05] LABS: Basophils Percent Auto 0.3 % (0.2-1.2); Eosinophils Percent Auto 0.1 % (0-4.4); Hematocrit 31.1 % (37.0-47.0); Hemoglobin 9.5 g/dL (12.0-15.0); Immature Granulocyte Absolute 0.17 K/mm3 (0.00-0.031); Immature Granulocyte Percent A 1.2 % (0-0.5); Lymphocytes Absolute Auto 1.04 K/mm3 (0.9-3.2); Lymphocytes Percent Auto 7.1 % (18.3-44.2); Mean Corpuscular HGB Conc 30.5 g/dl (32-36); Mean Corpuscular Hemoglobin 28.9 pg (26-34); Mean Corpuscular Volume 94.5 fl (80-100); Mean Platelet Volume 9.6 fl (7.4-10.4); Monocytes Absolute Auto 0.4 K/mm3 (0.1-0.6); Monocytes Percent Auto 2.8 % (2.6-8.5); Neutrophils Absolute Auto 12.9 K/mm3 (1.3-6.7); Neutrophils Percent Auto 88.5 % (45.5-73.1); Platelet Count Result 168 k/mm3 (150-375); Red Blood Count 3.29 M/mm3 (4.2-5.4); Red Cell Distribution Width 17.4 % (11.5-14.5); White Blood Count 14.6 K/mm3 (4.5-10.0)
[2024-03-24 06:15] LABS: Anion Gap 1 mmol/L (4-12); Blood Urea Nitrogen 12 mg/dL (7-17); Calcium 10.7 mg/dL (8.4-10.2); Carbon Dioxide 29 mmol/L (22-30); Chloride 109 mmol/L (98-107); Estimated CRCL calculation 100 ml/min; Estimated Glomerular Filt Rate > 60; Glucose 104 mg/dL (65-110); Magnesium 2.4 mg/dL (1.6-2.3); Potassium 3.7 mmol/L (3.4-5.0); Sodium 139 mmol/L (137-145)
[2024-03-24] MEDS: ENOXAPARIN 40 MG/0.4 ML SYRINGE SUB-Q (09:16)
[2024-03-24] MEDS: FERROUS SULFATE 325 MG TABLET DR PO ×2 (09:17→17:21)
[2024-03-24] MEDS: TAMSULOSIN HCL 0.4 MG CAPSULE PO (09:17)
[2024-03-24] MEDS: POTASSIUM CHLORIDE 20 MEQ ER TABLET 40 MEQ PO (09:17)
--- NOTE | 2024-03-24 09:21 | P.PNIM_ITS ---
Progress Note: A&P Assessment and Plan (1) Septic shock: Code(s): A41.9 - Sepsis, unspecified organism; R65.21 - Severe sepsis with septic shock Status: Resolved Assessment and Plan: Septic on presentation secondary to cystitis, left pyelitis. Underwent emergent bilateral ureteral stent placement 03/08/2024 and tolerated well Initially admitted to ICU requiring pressors and IV fluid resuscitation which were appropriately weaned Blood and urine cultures negative throughout admission Sepsis resolved. Patient now on medical floor, BP stable. No indication for ongoing IV fluid She remains on meropenem, 1 additional day remaining to complete appropriate course 03/24- meropenem is to be completed today (2) Metastatic disease: Code(s): C79.9 - Secondary malignant neoplasm of unspecified site Status: Acute Assessment and Plan: Prior to admission was found to have a hepatic mass and lymphadenopathy consistent with metastatic disease Underwent liver biopsy on 03/09/2024. Pathology demonstrated carcinoma of unknown primary Underwent port placement on 03/17/2024 Plan is to initiate outpatient chemotherapy Continue analgesics for pain and supportive care (3) UTI (urinary tract infection): Code(s): N39.0 - Urinary tract infection, site not specified Status: Acute Assessment and Plan: Culture negative x2 Given ureteral stones, stent insertion/removal/manipulation, she has been maintained on meropenem which she will continue for 1 additional day, stop date is 03/24/2024 (4) Hydronephrosis, left: Code(s): N13.30 - Unspecified hydronephrosis Status: Acute Assessment and Plan: Initially found to have 3 mm distal left ureteral stone with mild left hydroureteronephrosis and underwent cystoscopy with bilateral retrograde pyelogram, bilateral ureteral stent insertion, and Carty catheter insertion on 03/08/2024 Hydronephrosis had resolved on follow-up imaging 03/10/2024 Underwent cystoscopy with bilateral stent removal on 03/17/2024 Repeat imaging completed on 03/18/2024 due to increased leukocytosis which demonstrated 2 mm distal left ureter stone with mild left hydro Underwent cystoscopy, left retrograde pyelogram, left ureteroscopy with stone extraction, and left ureteral stent placement on 03/21/2024 Planning for left ureteral stent removal on 03/27/2024 - urology is following- appreciate recommendations (5) Thickened endometrium: Code(s): R93.89 - Abnormal findings on diagnostic imaging of other specified body structures Status: Acute Assessment and Plan: Found to have thickened endometrium of 21 mm Seen by OBGYN during admission and underwent D&C hysteroscopy on 03/14/2024 Pathology revealed benign endometrial polyp, negative for malignancy Per OBGYN, may expect light bleeding x7 days (6) Confusion: Code(s): R41.0 - Disorientation, unspecified Status: Acute Assessment and Plan: Etiology for this is unclear. Has been seen in consultation by Neurology- appreciate recommendations [place] to be multifactorial given her multiple medical problems CTA head neck with no acute findings, 0% stenosis of bilateral carotid bulbs No significant electrolyte derangements Check TSH, B12, folate Monitor mental status closely. Overall greatly improved today, she is A&O x4 (7) Fall: Code(s): W19.XXXA - Unspecified fall, initial encounter Status: Acute Assessment and Plan: Suffered a fall on 03/21/2024. Hit her head but no LOC Head CTA with no acute abnormalities
--- NOTE | 2024-03-24 09:35 | WPDUROPN2 ---
Progress Note: A&P Assessment and Plan (1) Hydronephrosis, left: Code(s): N13.30 - Unspecified hydronephrosis Status: Acute (2) Left ureteral stone: Code(s): N20.1 - Calculus of ureter Status: Acute Assessment and Plan: Initially found to have 3 mm distal left ureteral stone with mild left hydroureteronephrosis and underwent cystoscopy with bilateral retrograde pyelogram, bilateral ureteral stent insertion, and Chang catheter insertion on 03/08/2024 Hydronephrosis had resolved on follow-up imaging 03/10/2024 Underwent cystoscopy with bilateral stent removal on 03/17/2024 Repeat imaging completed on 03/18/2024 due to increased leukocytosis which demonstrated 2 mm distal left ureter stone with mild left hydro. Underwent cystoscopy, left retrograde pyelogram, left ureteroscopy with stone extraction, and left ureteral stent placement on 03/21/2024 Will plan for left ureteral stent removal and chang catheter removal on 03/27/2024 Subjective Subjective Date/Time Seen: 03/24/24 09:35 Interval history: To well today. Confusion [place] improved. Complains of some abdominal bloating. Denies flank pain or back pain. No nausea, vomiting, fever, chills. Tolerating her diet. No issues with Chang catheter which is draining clear mikala urine Review of Systems Review of Systems: All systems reviewed & are unremarkable except as noted in HPI and below Exam Narrative: General: Awake, alert, comfortable, no acute distress HEENT: Normocephalic, atraumatic, sclerae anicteric Respiratory: Normal respiratory effort, no accessory muscle use Abdomen: Nondistended, soft, nontender : Chang catheter draining clear mikala colored urine Skin: Normal coloration, warm and dry Neurologic: No focal neuro deficits noted Psych: Appropriate mood and affect, judgment and insight fair Objective Data Vital Signs Vital Signs: Vital Signs - 24 hr 03/23/24 15:16 03/23/24 19:39 03/24/24 05:10 Temperature 97.0 F L 97.0 F L 97.0 F L Pulse Rate 96 95 80 Respiratory Rate 18 20 20 Blood Pressure 108/59 L 109/68 118/60 Pulse Oximetry 92 99 97 Intake/Output Intake/Output: Intake & Output 03/21/24 03/22/24 03/23/24 03/24/24 23:59 23:59 23:59 23:59 Intake Total 6697 712 0715 340 Output Total 605 775 500 250 Balance 515 -125 810 90 Meds/Results Medications: Active Medications Generic Name Dose Route Start Last Admin Trade Name Freq PRN Reason Stop Dose Admin Acetaminophen 650 mg 03/09/24 11:27 03/15/24 17:27 Acetaminophen Elixir 325 Mg/10.15 Ml Udc PO 650 mg Q4H PRN Administration Mild Pain (1-3) or Fever Enoxaparin Sodium 40 mg 03/09/24 09:00 03/24/24 09:16 Enoxaparin 40 Mg/0.4 Ml Syringe SUB-Q 40 mg DAILY TRINITY Administration Fentanyl Citrate 25 mcg 03/21/24 10:52 Fentanyl Citrate Inj (*Crx) 100 Mcg/2 Ml Vial IV PUSH Q2M PRN Pain Ferrous Sulfate 325 mg 03/22/24 17:00 03/24/24 09:17 Ferrous Sulfate [address] PO 325 mg BID TRINITY Administration Meropenem 1 gm in 100 mls @ 200 mls/hr 03/18/24 14:00 03/24/24 05:41 IVPB 03/24/24 23:59 Infused Q8H TRINITY Infusion Morphine Sulfate 30 mg 03/22/24 15:11 03/22/24 21:50 Morphine Sulfate (*Crx) 30 Mg Tabcr PO 30 mg Q12HR PRN Administration pain of 4-10 Ondansetron HCl 4 mg 03/08/24 12:56 Ondansetron Inj 4 Mg/2 Ml Vial IV PUSH Q4H PRN Nausea Ondansetron HCl 4 mg 03/21/24 10:52 Ondansetron Inj 4 Mg/2 Ml Vial IV PUSH ONCE PRN Nausea Polyethylene Glycol 17 gm 03/16/24 17:00 03/22/24 08:45 Polyethylene Glycol 3350 17 Gm Powd.Pack PO 17 gm BID PRN Administration Constipation Potassium Chloride 40 meq 03/23/24 09:00 03/24/24 09:17 Potassium Chloride 20 Meq Er Tablet PO 40 meq DAILY TRINITY Administration Sodium Chloride 20 ml 03/09/24 01:36 Central Line Flush IV PUSH PRN PRN after blood draws Tamsulosin H
--- NOTE | 2024-03-24 11:21 | PCNFU ---
Nutrition Follow-Up Complete: Inadequate Oral Intake as related to ab pain/mass as evidenced by poor po intake reported. goal: Meet estimated nutritional needs. - Goal is not being met, PO intake is poor 5-25% meals Patient will continue current goal. Pt current nutrition is Regular. Last recorded weight is 88.3 kg, up from 87.5 kg on admit. . Bowel Motility: +2 BMs 03/23/24 Labs Reviewed: Hgb 9.5, Hct 31.1, Cre 0.5 Meds Noted:Lovenox, Meropenem, Miralax, Ferrous Sulfate. Skin: WNL Additional Notes: Patient remains on a regular diet. Intake has been poor. Ensure Enlive are providing an additional 350 kcals and 20 gms protein. Po intake encouraged. Agree with diet orders. Will monitor weight, labs, skin, oral intake, meds every 5 days.
[2024-03-24 16:03] VITALS: BP 111/57; PULSE 79; RESP 15; TEMP 36.5; O2SAT 100
[2024-03-24 17:36] LABS: Folic Acid 2.1 ng/mL (2.76->20)
[2024-03-24 20:00] VITALS: PULSE 81; RESP 16; O2SAT 97
[2024-03-24] MEDS: MORPHINE SULFATE (*CRX) 30 MG TABCR PO (21:00)
[2024-03-24 21:05] VITALS: BP 125/66; PULSE 81; RESP 16; TEMP 36.4; O2SAT 97
[2024-03-25 06:00] VITALS: BP 105/86; PULSE 82; RESP 16; TEMP 36.6; O2SAT 97
[2024-03-25] MEDS: POTASSIUM CHLORIDE 20 MEQ ER TABLET 40 MEQ PO (08:59)
[2024-03-25] MEDS: FERROUS SULFATE 325 MG TABLET DR PO (08:59)
[2024-03-25] MEDS: TAMSULOSIN HCL 0.4 MG CAPSULE PO (09:00)
[2024-03-25] MEDS: FOLIC ACID 0.4 MG TABLET PO (12:22)
--- NOTE | 2024-03-25 14:01 | PM.DS ---
DS: Admitting Diagnosis Discharge Date 03/25 Admitting Diagnosis abd pain DS: Discharge Diagnosis Discharge Diagnosis (1) Septic shock: Code(s): A41.9 - Sepsis, unspecified organism; R65.21 - Severe sepsis with septic shock Status: Resolved Assessment and Plan: Septic on presentation secondary to cystitis, left pyelitis. Underwent emergent bilateral ureteral stent placement 03/08/2024 and tolerated well Initially admitted to ICU requiring pressors and IV fluid resuscitation which were appropriately weaned Blood and urine cultures negative throughout admission Sepsis resolved. Patient now on medical floor, BP stable. No indication for ongoing IV fluid She remains on meropenem, 1 additional day remaining to complete appropriate course 03/24- meropenem is to be completed today (2) Metastatic disease: Code(s): C79.9 - Secondary malignant neoplasm of unspecified site Status: Acute Assessment and Plan: Prior to admission was found to have a hepatic mass and lymphadenopathy consistent with metastatic disease Underwent liver biopsy on 03/09/2024. Pathology demonstrated carcinoma of unknown primary Underwent port placement on 03/17/2024 Plan is to initiate outpatient chemotherapy Continue analgesics for pain and supportive care (3) UTI (urinary tract infection): Code(s): N39.0 - Urinary tract infection, site not specified Status: Acute Assessment and Plan: Culture negative x2 Given ureteral stones, stent insertion/removal/manipulation, she has been maintained on meropenem which she will continue for 1 additional day, stop date is 03/24/2024 (4) Hydronephrosis, left: Code(s): N13.30 - Unspecified hydronephrosis Status: Acute Assessment and Plan: Initially found to have 3 mm distal left ureteral stone with mild left hydroureteronephrosis and underwent cystoscopy with bilateral retrograde pyelogram, bilateral ureteral stent insertion, and Carty catheter insertion on 03/08/2024 Hydronephrosis had resolved on follow-up imaging 03/10/2024 Underwent cystoscopy with bilateral stent removal on 03/17/2024 Repeat imaging completed on 03/18/2024 due to increased leukocytosis which demonstrated 2 mm distal left ureter stone with mild left hydro Underwent cystoscopy, left retrograde pyelogram, left ureteroscopy with stone extraction, and left ureteral stent placement on 03/21/2024 Planning for left ureteral stent removal on 03/27/2024 - urology is following- appreciate recommendations (5) Thickened endometrium: Code(s): R93.89 - Abnormal findings on diagnostic imaging of other specified body structures Status: Acute Assessment and Plan: Found to have thickened endometrium of 21 mm Seen by OBGYN during admission and underwent D&C hysteroscopy on 03/14/2024 Pathology revealed benign endometrial polyp, negative for malignancy Per OBGYN, may expect light bleeding x7 days (6) Confusion: Code(s): R41.0 - Disorientation, unspecified Status: Acute Assessment and Plan: Etiology for this is unclear. Has been seen in consultation by Neurology- appreciate recommendations [place] to be multifactorial given her multiple medical problems CTA head neck with no acute findings, 0% stenosis of bilateral carotid bulbs No significant electrolyte derangements Check TSH, B12, folate Monitor mental status closely. Overall greatly improved today, she is A&O x4 (7) Fall: Code(s): W19.XXXA - Unspecified fall, initial encounter Status: Acute Assessment and Plan: Suffered a fall on 03/21/2024. Hit her head but no LOC Head CTA with no acute abnormalities, soft tissue swelling of right parietal scalp Head/neck CTA 03/22/2024 shows small right parietal scalp hematoma with no fracture or acute process Implement fall precautions (8) Leukocytosis: Qualifiers: Leukocytosis type: lymphocytosis Qualified Code(s): D72.820 - Lymp
[2024-03-31 17:54] LABS: Methylmalonic Acid 126 nmol/L (69-390)
== END 2024-03-25 15:28 | disposition home or self-care (01) | DRG 853 ==
LOC: ANHED 13:13 → ANH3MED 14:04 → ANHICU 15:52 → ANH3MED 03-11 17:11
PROVIDERS: Family Medicine; Hospitalist; Internal Medicine; Nurse Practitioner Family; Obstetrics & Gynecology Gynecology; Physician Assistant; Psychiatry & Neurology Neurology; Student in an Organized Health Care Education/Training Program; Surgery; Urology; Admitting Provider Internal Medicine; Emergency Provider Nurse Practitioner Family; PCP Internal Medicine Hematology & Oncology; Visit Provider Nurse Practitioner
PROC: 0T788DZ Dilation of Bilateral Ureters with Intraluminal Device, Via Natural or Artificial Opening Endoscopic (ICD-10-PCS; CPT 52352; principal; 2024-03-08 15:00)
PROC: 0U5B8ZZ Destruction of Endometrium, Via Natural or Artificial Opening Endoscopic (ICD-10-PCS; CPT 58563; principal; 2024-03-14 17:45)
PROC: 02HV33Z Insertion of Infusion Device into Superior Vena Cava, Percutaneous Approach (ICD-10-PCS; principal; 2024-03-17 10:00)
PROC: 0T778DZ Dilation of Left Ureter with Intraluminal Device, Via Natural or Artificial Opening Endoscopic (ICD-10-PCS; CPT 52352; principal; 2024-03-21 11:00)
DX: A41.9 Sepsis, unspecified organism (principal); G93.41 Metabolic encephalopathy; R65.21 Severe sepsis with septic shock; N13.6 Pyonephrosis; R18.0 Malignant ascites; C77.2 Secondary and unspecified malignant neoplasm of intra-abdominal lymph nodes; C80.1 Malignant (primary) neoplasm, unspecified; S00.03XA Contusion of scalp, initial encounter; W18.39XA Other fall on same level, initial encounter; R93.89 Abnormal findings on diagnostic imaging of other specified body structures; E87.6 Hypokalemia; D50.9 Iron deficiency anemia, unspecified; D72.829 Elevated white blood cell count, unspecified; E87.8 Other disorders of electrolyte and fluid balance, not elsewhere classified; N95.0 Postmenopausal bleeding
CPT/HCPCS: 36415; 47000; 70450; 70496; 70498; 71250; 73502; 74018; 74176; 74177; 74420; 76775; 77001; 77012; 80048; 80053; 80307; 81001; 82140; 82306; 82365; 82607; 82728; 82746; 83540; 83550; 83605; 83690; 83735; 83880; 83921; 84145; 84443; 85025; 85027; 85610; 85652; 85730; 86140; 86301; 86304; 87040; 87086; 88300; 88305; 88307; 88342; 96361; 96374; 97110; 97116; 97161; 97166; 97530; 97535; 99285; A9270; C1751; C1758; C1769; C1788; C2617; J0696; J1170; J1644; J1650; J1756; J1885; J2060; J2185; J2250; J2371; J2405; J2704; J3010; J3480; J7030; J7040; J7050; J7120; Q9966; Q9967

== ENCOUNTER 2024-03-26 12:57 | Inpatient (IN) | payer MEDICARE, SELFPAY ==
--- NOTE | ~2024-03-26 | US_ITS ---
BILATERAL LOWER EXTREMITY VENOUS ULTRASOUND Ordering provider: Uri Ramires MD History: . edema . Comparison: None. FINDINGS: RIGHT LOWER EXTREMITY VEINS: --COMMON FEMORAL: Patent and free of thrombus. Normal compressibility, phasic flow and augmentation. --PROXIMAL SUPERFICIAL FEMORAL: Patent and free of thrombus. Normal compressibility, phasic flow and augmentation. --DISTAL SUPERFICIAL FEMORAL: Patent and free of thrombus. Normal compressibility, phasic flow and au gmentation. --POPLITEAL: Patent and free of thrombus. Normal compressibility, phasic flow and augmentation. --POSTERIOR TIBIAL: Patent and free of thrombus. Normal compressibility, phasic flow and augmentation . Thrombosis of the right peroneal vein. LEFT LOWER EXTREMITY VEINS: --COMMON FEMORAL: Patent and free of thrombus. Normal compressibility, phasic flow and augmentation. --PROXIMAL SUPERFICIAL FEMORAL: Patent and free of thrombus. Normal compressibility, phasic flow and augmentation. --DISTAL SUPERFICIAL FEMORAL: Patent and free of thrombus. Normal compressibility, phasic flow and au gmentation. --POPLITEAL: Patent and free of thrombus. Normal compressibility, phasic flow and augmentation. --POSTERIOR TIBIAL: Patent and free of thrombus. Normal compressibility, phasic flow and augmentation . IMPRESSION: Thrombosis of the right peroneal vein. Otherwise, Negative bilateral lower extremity venous US.. Reviewed, dictated and finalized at location A.
--- NOTE | ~2024-03-26 | US_ITS ---
EXAMINATION: US paracentesis abd w/image DATE: 03/28/2024 10:40 INDICATION: Ascites. TECHNIQUE: The procedure and its risks and benefits were discussed with the patient. Potential risks discussed included bleeding and infection. The skin was prepped and draped in sterile fashion. 1% lid ocaine was used for local anesthesia. Under ultrasound guidance, a 5 Fr catheter with trochar was adv anced into the ascites in the right lower quadrant. Fluid was aspirated into vacuum bottles. The cath eter was removed, and a dressing was applied. There were no immediate complications. FINDINGS: Ultrasound images demonstrate ascites and the catheter within the fluid. IMPRESSION: 1. Successful ultrasound-guided paracentesis yielding 1550 mL of light yellowish fluid. Reviewed, dictated and finalized at location A. IMPRESSION: 1. Successful ultrasound-guided paracentesis yielding 1550 mL of light yellowi sh fluid.
--- NOTE | ~2024-03-26 | CT_ITS ---
EXAMINATION: CT abdomen pelvis w con DATE: 03/26/2024 16:00 INDICATION: epigastric abdominal pain TECHNIQUE: Computed tomography (CT) of the abdomen and pelvis was performed with 100 mL Omnipaque-350 intravenous contrast. Automated exposure control and iterative reconstruction technique were employe d. The dose-length product was 1030.36 mGy-cm. COMPARISON: CT cap 03/18/2024. FINDINGS: Lower thorax: Mild diffuse groundglass opacities, dependent atelectasis, and septal thickening. Liver: Simple left lobe cyst. Large cystic mass in the sae hepatis with involvement of the left lob e, unchanged given interval difference in technique. Biliary/Gallbladder: Gallbladder is normal. No bile duct dilation. Pancreas: No inflammatory change or duct dilatation. Spleen: Enlarged. Adrenals:No mass. Kidneys: Simple left lower pole cyst. Bilateral nonobstructing calcifications. Left ureteral stent, i n good position. GI tract: Moderate distal esophageal and gastric wall edema. No small or large bowel dilation. Normal appendix. Diverticulosis without diverticulitis. Mesentery/Peritoneum: Moderate ascites. No mass or free air Retroperitoneum: No mass. Pelvis: Urinary bladder is decompressed by a Carty catheter. Normal uterus and ovaries. Soft Tissues: Soft tissues and body wall unremarkable. Bones: No acute osseous finding. IMPRESSION: New, mild interstitial edema. New, moderate esophagitis/gastritis. Splenomegaly, increasing since the prior study. Grossly stable cystic pancreatic head mass. Moderate ascites, increasing since the prior study. Reviewed, dictated and finalized at location K.
[2024-03-26 13:01] VITALS: BP 101/61; PULSE 113; RESP 18; TEMP 36.4; O2SAT 99
[2024-03-26 13:46] VITALS: BP 105/78; PULSE 102; RESP 20; TEMP 36.5; O2SAT 96
--- NOTE | 2024-03-26 14:25 | ECG_ITS ---
Test Date: 2024-03-26 14:43:38 Measurements Intervals [place] Rate: 89 P: 54 CO: 177 QRS: -33 QRSD: 103 T: 27 QT: 355 QTc: 434 Interpretive Statements SINUS RHYTHM LEFT AXIS DEVIATION LOW QRS VOLTAGE IN PRECORDIAL LEADS ANTEROLATERAL MYOCARDIAL INFARCTION , PROBABLY OLD BORDERLINE T WAVE ABNORMALITY- ANT/INF LEADS ABNORMAL ECG No previous ECG available for comparison Electronically Signed On 03-26-2024 15:01:20 CDT by Dimas Fried D.O.
--- NOTE | 2024-03-26 14:27 | ED.GENADULT ---
HPI - General Adult General Chief complaint: Unspecified Stated complaint: pain Time Seen by Provider: 03/26/24 14:05 Source: patient Mode of arrival: ambulatory Limitations: no limitations History of Present Illness HPI narrative: This is a 64-year-old female who presents to the ED for chief complaint of abdominal pain. Recent diagnosis of liver mass and presumed metastatic cancer. She was discharged from the hospital yesterday. She is here because her pain has not been well controlled with hydrocodone that were prescribed at the time of discharge. States the pain is in the epigastric region and does not radiate. She feels that it is at her liver were her masses. Denies fevers, chills, nausea, vomiting, per chart review in the hospital course, patient was initially admitted to the ICU requiring pressors and resuscitation. She ended up needing bilateral emergent stents for kidney stones. patient's family states that she has been extremely globally weak and unable to get out of bed. He is concerned that she was not ready to leave the hospital yesterday, even though the patient wanted to. patient states that she believes she still has the stents in place. She is to follow-up with urology this week for follow-up as well as Dr. Perry (Hematology) to begin chemotherapy treatments. Related Data Allergies Allergy/AdvReac Type Severity Reaction Status Date / Time No Known Allergies Allergy Verified 03/26/24 13:50 Review of Systems Review of Systems: All systems as dictated in [facility] Past Medical History Medical History Abdominal mass large mass involving the perihepatic lymph node chain and left hepatic lobe, first seen on CT on 01/21/24 Family History Family History (Updated 03/26/24 @ 18:40 by Michael Navas RN) Other Unknown family medical history Social History Social History Smoking status: Never smoker Alcohol intake: never Substance use: never Do You Feel Safe in your Home?: Yes Lack of Transportation: No Lack of Food: Never True Current Housing: I Have Housing Concerned About Future Housing: No Difficulty Paying Gas/Electric Bills: No Difficulty Paying for Meds: No Currently Unemployed: No Education: Decline to Answer Difficulty w/ Childcare or Family Care: No Spiritual care concerns: No Exam Narrative: GENERAL: Appears in pain. Appears dry HEAD: Normocephalic, atraumatic. EYES: PERRLA and EOMI. ENT: Nares clear, no rhinorrhea or epistaxis. Oropharynx without tonsillar hypertrophy exudate or other lesions. NECK: Supple. No adenopathy or masses. CHEST: No respiratory distress. Clear to auscultation. No wheezes rales or rhonchi HEART: Regular rate and rhythm. No murmur heard. Normal peripheral pulses. ABDOMEN: Mild tenderness to the epigastric region. Soft, otherwise nontender, nondistended, normal active bowel sounds. Negative for peritoneal signs. MSK: Normal range of motion. No edema. SKIN: Warm, dry, no rash. NEURO: Alert and oriented x4. No focal deficits. PSYCH: Normal mood and affect. Course Vital Signs Vital signs: Vital Signs Temperature 97.6 F 03/26/24 13:01 Pulse Rate 113 H 03/26/24 13:01 Respiratory Rate 18 03/26/24 13:01 Blood Pressure 101/61 03/26/24 13:01 Pulse Oximetry 99 03/26/24 13:01 Temperature 97.0 F L 03/26/24 20:06 Pulse Rate 79 03/26/24 20:06 Respiratory Rate 20 03/26/24 20:06 Blood Pressure 116/70 03/26/24 20:06 Pulse Oximetry 100 03/26/24 20:06 Oxygen Delivery Room Air 03/26/24 20:00 Medical Decision Making MDM Narrative Medical decision making narrative: this is a 64-year-old female who presents to the ED for chief complaint of abdominal pain. Recent long hospital stay for new metastatic cancer diagnosis as well as sepsis with kidney stones. She was just dis
[2024-03-26] MEDS: ONDANSETRON INJ 4 MG/2 ML VIAL IV PUSH (14:58)
[2024-03-26] MEDS: SODIUM CHLORIDE 0.9% IV 1,000 ML 999 ML IV CONT ×2 (14:58→15:35)
[2024-03-26] MEDS: HYDROmorphone HCL INJ (*CRX) 1 MG/ML SYR 0.5 MG IV PUSH (14:58)
[2024-03-26 15:07] LABS: Basophils Absolute Auto 0.1 K/mm3 (0.0-0.1); Basophils Percent Auto 0.2 % (0.2-1.2); Hematocrit 31.8 % (37.0-47.0); Hemoglobin 10.2 g/dL (12.0-15.0); Immature Granulocyte Absolute 0.34 K/mm3 (0.00-0.031); Immature Granulocyte Percent A 1.2 % (0-0.5); Lymphocytes Absolute Auto 1.12 K/mm3 (0.9-3.2); Lymphocytes Percent Auto 3.9 % (18.3-44.2); Mean Corpuscular HGB Conc 32.1 g/dl (32-36); Mean Corpuscular Hemoglobin 29.6 pg (26-34); Mean Corpuscular Volume 92.2 fl (80-100); Mean Platelet Volume 9.6 fl (7.4-10.4); Monocytes Absolute Auto 0.8 K/mm3 (0.1-0.6); Monocytes Percent Auto 2.9 % (2.6-8.5); Neutrophils Absolute Auto 26.5 K/mm3 (1.3-6.7); Neutrophils Percent Auto 91.8 % (45.5-73.1); Platelet Count Result 147 k/mm3 (150-375); Red Blood Count 3.45 M/mm3 (4.2-5.4); Red Cell Distribution Width 17.8 % (11.5-14.5); White Blood Count 28.8 K/mm3 (4.5-10.0)
[2024-03-26 15:15] LABS: Lactic Acid Reflex 2.1 mmol/L (0.7-2.0)
[2024-03-26 15:16] LABS: Alanine Aminotransferase 13 U/L (6-35); Albumin Level 2.4 g/dL (3.5-5.1); Alkaline Phosphatase 142 U/L (38-126); Anion Gap 6 mmol/L (4-12); Aspartate Amino Transferase 23 U/L (14-36); Bilirubin,Total 0.9 mg/dL (0.2-1.3); Blood Urea Nitrogen 11 mg/dL (7-17); Calcium 10.6 mg/dL (8.4-10.2); Carbon Dioxide 26 mmol/L (22-30); Chloride 107 mmol/L (98-107); Estimated CRCL calculation 92 ml/min; Estimated Glomerular Filt Rate > 60; Glucose 140 mg/dL (65-110); Potassium 3.6 mmol/L (3.4-5.0); Sodium 139 mmol/L (137-145)
[2024-03-26 15:27] LABS: Troponin I < 0.012 ng/mL (0.000-0.034)
[2024-03-26 16:54] VITALS: BP 106/73; PULSE 83; RESP 16; O2SAT 97
[2024-03-26] MEDS: PIPERACILLN/TAZ 3.375GM/NS50ML 3.375 GM/50 ML BAG IVPB (16:58)
[2024-03-26 17:05] LABS: Bacteria Urine None Seen /hpf; Need Manual Microscopic Reviewed; Non Pathogenic Casts >20; RBC Urine >100 /hpf (0-2); Squamous Epithelial Cell Urine None Seen /hpf (Few); WBC Urine >100 /hpf (0-3)
[2024-03-26 17:17] LABS: Appearance Urine Turbid (Clear); Bilirubin Urine 1+ (Negative); Blood Urine 3+ (Negative); Glucose Urine UA Negative (Negative); Ketones Urine Negative (Negative); Leukocyte Esterase Ur 2+ LEU/UL (Negative); Nitrate Urine Negative (Negative); Protein Urine 2+ mg/dL (Negative); Specific Grav Ur 1.019 (1.001-1.035)
[2024-03-26 17:18] LABS: Add Urine Microscopic? YES; Color Urine Brown (Yellow)
[2024-03-26 18:03] LABS: Reflex Lactic Acid Yes or No Add Lactic
[2024-03-26 18:30] VITALS: BMI 28.3
--- NOTE | 2024-03-26 18:39 | PC.NURSE ---
This patient, Cheyanne Arenas, was admitted to [address] [place] [address] Room 314-02 at 18:28. Patient/family oriented to hospital policies and general routines including ID bracelet, bed and alarms, visiting hours, pain management, procedures, bathroom and other care routines, personal items, smoking policy, room service/diet, and visiting hours. Information on how to activate the Rapid Response Team has been discussed. Patient/Family are encouraged to report perceived risks to care and to ask questions if they do not understand what they are told or what they should do.
[2024-03-26] MEDS: SODIUM CHLORIDE 0.9% IV 1,000 ML 125 ML IV CONT (18:52)
[2024-03-26 19:06] LABS: Lactic Acid 1.4 mmol/L (0.7-2.0)
[2024-03-26] MEDS: VANCOMYCIN 2,000 MG/NS 500 ML 2,000 MG/500 ML BAG 250 MG IVPB (19:44)
[2024-03-26 20:00] VITALS: PULSE 78; PULSE 81; RESP 19; O2SAT 99
[2024-03-26 20:06] VITALS: BP 116/70; PULSE 79; RESP 20; TEMP 36.1; O2SAT 100
[2024-03-26 20:40] LABS: Albumin Level 2.1 g/dL (3.5-5.1)
[2024-03-27] VITALS (17 sets, daily range): BP systolic 80–107; BP diastolic 40–59; PULSE 67–132; RESP 16–20; TEMP 35.7–37.2; O2SAT 94–99
--- NOTE | 2024-03-27 | ECHO_ITS ---
Patient Info Name: Cheyanne Arenas Age: 64 years : 1960 Gender: Female Ht: 64 in Wt: 165 lbs BSA: 1.86 m2 HR: 99 bpm BP: 87 / 45 mmHg Heart Rhythm: Sinus Rhythm Technical Quality: Fair Exam Date: 03/27/2024 12:13 PM Exam Location: Echo Lab Patient Status: Inpatient Admit Date: 03/27/2024 Staff Ordering Physician: Shaka Ruiz APRN [employer] Plant Assembler: Moi Siegel RDCS Attending Provider: Kerry Winter MD Referring Physician: Joseph BALBUENA; Exam Type: CA echo doppler color flow Study Info Indications I48.1 - Persistent atrial fibrillation Complete two-dimensional, color flow and Doppler transthoracic echocardiogram is performed. Summary 1. Complete two-dimensional, color flow and Doppler transthoracic echocardiogram is performed. 2. Left ventricular chamber dimension is normal. 3. Left ventricular systolic function is normal, estimated at 65-70%. 4. There is mildly increased left ventricular wall thickness. 5. The left ventricular diastolic function is grade I diastolic dysfunction. 6. The basal inferolateral wall, and mid inferolateral wall are hypokinetic. 7. Left atrial chamber dimension is mildly enlarged. 8. 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 9. There is mild mitral valve regurgitation. 10. There is mild tricuspid valve regurgitation. Left Ventricle Left ventricular chamber dimension is normal. Left ventricular systolic function is normal, estimated at 65-70%. There is mildly increased left ventricular wall thickness. The left ventricular diastolic function is grade I diastolic dysfunction. The basal inferolateral wall, and mid inferolateral wall are hypokinetic. All other mullins appear normal. Right Ventricle Right ventricular chamber dimension is normal. Right ventricular systolic function is normal. Left Atria Left atrial chamber dimension is mildly enlarged. Right Atria Right atrial chamber dimension is normal. Atrial Septum Intact interatrial septum visualized by color flow imaging. Aortic Valve The aortic valve is trileaflet. There is mild aortic valve sclerosis. There is no aortic valve stenosis. There is trace aortic valve regurgitation. Pulmonic Valve The pulmonic valve is normal. There is no pulmonic valve stenosis. There is trace pulmonic regurgitation. Mitral Valve The mitral valve has bileaflet prolapse. There is no mitral valve stenosis. There is mild mitral valve regurgitation. Tricuspid Valve The tricuspid valve leaflets are normal. There is no significant tricuspid valve stenosis. There is mild tricuspid valve regurgitation. No pulmonary hypertension, estimated pulmonary arterial systolic pressure is 30 mmHg. Pericardium/Pleural The pericardium appears normal. There is no pericardial effusion. Inferior Vena Cava Normal inferior vena cava with >50% collapse upon inspiration consistent with normal right atrial pressure, 10 mmHg. Aorta The aortic root size at the sinus of Valsalva is normal. Left Ventricular Outflow Tract Name Value Normal LVOT 2D LVOT Diameter 1.9 cm LVOT Doppler LVOT Peak Gradient 6 mmHg LVOT Mean Gradient 3 mmHg LVOT VTI
--- NOTE | 2024-03-27 00:15 | PM.IMHP ---
H&P: HPI History of Present Illness Date/Time: 03/27/24 00:15 Chief Complaint: sepsis, metastatic carcinoma Narrative: This is a 64-year-old female patient with metastatic carcinoma who was just discharged from the hospital a day or 2 ago to return home when she complained of worsening abdominal pain difficulty breathing fever and chills. Patient had been previously admitted on 03/08/24 to the ICU on vasopressors for septic shock related to urinary tract infection and left pyelitis. She has ureteral stent on the left still in place. She completed course of meropenem on 03/25. She is supposed to be following up with Oncology this week to discuss initiating chemotherapy. Patient reports that she has worsened abdominal pain. CT imaging shows worsened ascites and splenomegaly. Patient is being admitted for paracentesis started on antibiotics initially vancomycin and Zosyn which we changed to vancomycin and Rocephin for concern for SBP. Will consult ID pharmacy to evaluate in the morning. On discharge white blood cell count was 14 and on admission it was 28. Diagnostic paracentesis is ordered. I was called to the floor because patient developed rigors and tachycardia. On arrival at bedside patient is tachycardic in the 140s to 150s irregularly irregular rhythm atrial fibrillation with RVR on telemetry per my interpretation. She is awake, seems slightly confused. We will consult Urology again to see patient while admitted. We will initiate diltiazem drip an transfer patient to the IMU. We will also consult Oncology. At this time patient remains full code status and her Florinda is surrogate decision maker. Review of Systems Review of Systems: abdominal pain and chills ROS unobtainable: Yes unobtainable due to medical condition and unobtainable due to mental status [facility] Past Medical History Medical History Abdominal mass large mass involving the perihepatic lymph node chain and left hepatic lobe, first seen on CT on 01/21/24 Family History Family History Other Unknown family medical history Social History Social History Smoking status: Never smoker Alcohol intake: never Substance use: never Do You Feel Safe in your Home?: Yes Lack of Transportation: No Lack of Food: Never True Current Housing: I Have Housing Concerned About Future Housing: No Difficulty Paying Gas/Electric Bills: No Difficulty Paying for Meds: No Currently Unemployed: No Education: Decline to Answer Difficulty w/ Childcare or Family Care: No Spiritual care concerns: No Meds Home Medications and Allergies Home Medications Medication Instructions Recorded Confirmed Type acetaminophen 160 mg/5 mL oral 650 mg (20.3125 mL) PO Q4H PRN 03/25/24 03/27/24 Rx suspension (Nortemp) Mild Pain (1-3) Or Fever #60 mL ferrous sulfate 325 mg (65 mg 325 mg PO BID #60 tabs 03/25/24 03/27/24 Rx iron) tablet,delayed release folic acid 400 mcg tablet 0.4 mg PO DAILY #30 tabs 03/25/24 03/27/24 Rx polyethylene glycol 3350 17 gram 17 g PO BID PRN Constipation #30 ea 03/25/24 03/27/24 Rx oral powder packet (Miralax) tamsulosin 0.4 mg capsule 0.4 mg PO QAM #30 caps 03/25/24 03/27/24 Rx Allergies Allergy/AdvReac Type Severity Reaction Status Date / Time No Known Allergies Allergy Verified 03/26/24 13:50 Vital Signs Vital Signs - 24 hr 03/26/24 13:01 03/26/24 13:46 03/26/24 16:54 Temperature 36.4 C 36.5 C Pulse Rate 113 H 102 H 83 Respiratory Rate 18 20 16 Blood Pressure 101/61 105/78 106/73 Pulse Oximetry 99 96 97 Oxygen Delivery Room Air 03/26/24 20:06 03/26/24 20:00 Temperature 36.1 C L Pulse Rate 79 81 Respiratory Rate 20 19 Blood Pressure 116/70 Pulse Oximetry 100 99 Oxygen Delivery Room Air Exam Narrative: G
[2024-03-27] MEDS: cefTRIAXone 2 GM/NS 100 ML 2 GM/100 ML BAG IVPB (00:21)
[2024-03-27] MEDS: ALBUMIN HUMAN 25% 25 GM/100 ML 100 ML IVPB ×2 (00:21→05:52)
[2024-03-27] MEDS: HYDROmorphone HCL INJ (*CRX) 1 MG/ML SYR 0.5 MG IV PUSH (01:06)
[2024-03-27 01:10] LABS: Creatine Kinase 20 U/L (30-135)
--- NOTE | 2024-03-27 01:47 | ECG_ITS ---
Test Date: 2024-03-27 02:03:00 Measurements Intervals [place] Rate: 150 P: 0 ME: 0 QRS: -39 QRSD: 78 T: 96 QT: 283 QTc: 447 Interpretive Statements POOR QUALITY TRACING COULD AFFECT INTERPRETATION SINUS TACHYCARDIA FREQUENT ATRIAL PREMATURE COMPLEXES LEFT AXIS DEVIATION DELAYED PRECORDIAL R/S TRANSITION NONSPECIFIC ST & T-WAVE ABNORMALITY- DIFFUSE LEADS BASELINE ARTIFACT- I, II, III, AVR, AVL, AVF, V1-V6 ABNORMAL ECG Compared to ECG 03/26/2024 14:43:38 HEART RATE HAS INCREASED Electronically Signed On 03-27-2024 06:21:18 CDT by Dimas Fried D.O.
[2024-03-27] MEDS: ACETAMINOPHEN 325 MG TABLET 650 MG PO ×3 (02:29→20:48)
[2024-03-27] MEDS: dilTIAZem HCl INJ 25 MG/5 ML VIAL 15 MG IV PUSH (02:35)
--- NOTE | 2024-03-27 03:10 | PC.NURSE ---
Received pt from med-surg room 314. BP 80/40. Notified ESSIE Walker. New order for NS 500 ml bolus. Cardizem gtt not started at this time. Staff to recheck BP after fluid bolus.
[2024-03-27] MEDS: SODIUM CHLORIDE 0.9% IV 500 ML 999 ML IV CONT (03:26)
[2024-03-27 04:21] LABS: Basophils Absolute Auto 0.1 K/mm3 (0.0-0.1); Basophils Percent Auto 0.4 % (0.2-1.2); Eosinophils Absolute Auto 0.1 K/mm3 (0-0.3); Eosinophils Percent Auto 0.8 % (0-4.4); Hematocrit 32.1 % (37.0-47.0); Hemoglobin 9.7 g/dL (12.0-15.0); Immature Granulocyte Absolute 0.18 K/mm3 (0.00-0.031); Lymphocytes Absolute Auto 0.26 K/mm3 (0.9-3.2); Lymphocytes Percent Auto 1.5 % (18.3-44.2); Mean Corpuscular HGB Conc 30.2 g/dl (32-36); Mean Corpuscular Hemoglobin 28.4 pg (26-34); Mean Corpuscular Volume 94.1 fl (80-100); Mean Platelet Volume 9.5 fl (7.4-10.4); Monocytes Absolute Auto 0.1 K/mm3 (0.1-0.6); Monocytes Percent Auto 0.8 % (2.6-8.5); Neutrophils Absolute Auto 16.5 K/mm3 (1.3-6.7); Neutrophils Percent Auto 95.5 % (45.5-73.1); Platelet Count Result 125 k/mm3 (150-375); Red Blood Count 3.41 M/mm3 (4.2-5.4); Red Cell Distribution Width 18.2 % (11.5-14.5); White Blood Count 17.3 K/mm3 (4.5-10.0)
[2024-03-27 04:29] LABS: Influenza A QL RT-PCR Negative (Negative); Influenza B QL RT-PCR Negative (Negative); RSV RNA, RT-PCR Negative (Negative); SARS-CoV-2 RNA PCR Negative (Negative)
--- NOTE | 2024-03-27 04:40 | ECG_ITS ---
Test Date: 2024-03-27 04:51:20 Measurements Intervals [place] Rate: 108 P: 58 [place]: 198 QRS: -31 QRSD: 86 T: 32 QT: 354 QTc: 476 Interpretive Statements SINUS TACHYCARDIA LEFT AXIS DEVIATION BORDERLINE R WAVE PROGRESSION, ANTERIOR LEADS MINIMAL Q WAVES- HIGH LATERAL LEADS BORDERLINE T WAVE ABNORMALITY- ANT/INF LEADS BASELINE ARTIFACT- V4-V6 ABNORMAL ECG Compared to ECG 03/27/2024 02:03:00 HEART RATE HAS DECREASED Electronically Signed On 03-27-2024 06:23:30 CDT by Dimas Fried D.O.
[2024-03-27] MEDS: SODIUM CHLORIDE 0.9% IV 1,000 ML 125 ML IV CONT ×3 (04:50→20:42)
[2024-03-27 04:53] LABS: Platelet Estimate Slightly Decreased (Adequate)
[2024-03-27 04:55] LABS: Anisocytosis 1+; Burr Cells 1+; Hypochromasia 1+; Platelet Clumps Present; Schistocytes None Seen
--- NOTE | 2024-03-27 04:59 | PC.NURSE ---
EKG obtained. Pt ST. BP 87/45, HR 111. Lab reported critical glucose of 50. Accu-check 66. All findings reported to ESSIE Walker. Orders for hypoglycemia protocol and to treat blood glucose accordingly.
[2024-03-27 05:04] LABS: Albumin Level 2.4 g/dL (3.5-5.1); Alkaline Phosphatase 415 U/L (38-126); Anion Gap 12 mmol/L (4-12); Aspartate Amino Transferase 40 U/L (14-36); Blood Urea Nitrogen 10 mg/dL (7-17); Calcium 10.3 mg/dL (8.4-10.2); Carbon Dioxide 19 mmol/L (22-30); Chloride 110 mmol/L (98-107); Estimated CRCL calculation 78 ml/min; Estimated Glomerular Filt Rate > 60; Glucose 50 mg/dL (65-110); Magnesium 1.9 mg/dL (1.6-2.3); Potassium 3.2 mmol/L (3.4-5.0); Sodium 141 mmol/L (137-145)
[2024-03-27 05:05] LABS: Alanine Aminotransferase 20 U/L (6-35)
[2024-03-27] MEDS: DEXTROSE 50% 25 GM/50 ML SYRINGE IV PUSH (05:06)
[2024-03-27 05:31] LABS: Glucose Point of Care 101 mg/dl (65-105)
[2024-03-27 05:31] LABS: Glucose Point of Care 66 mg/dl (65-105)
[2024-03-27 08:32] LABS: Glucose Point of Care 89 mg/dl (65-105)
[2024-03-27] MEDS: SODIUM CHLORIDE 0.9% IV 1,000 ML 999 ML IV CONT (08:52)
[2024-03-27] MEDS: VANCOMYCIN 1,500 MG/NS 500 ML 1,500 MG/500 ML BAG 250 MG IVPB ×2 (08:52→20:39)
[2024-03-27 09:18] LABS: CRP 12.6 mg/dL (<1.0)
[2024-03-27 09:22] LABS: Erythrocyte Sedimentation Rate 26 mm/hr (0-20)
--- NOTE | 2024-03-27 09:28 | PM.IMPN ---
Progress Note: A&P Assessment and Plan (1) Sepsis: Code(s): A41.9 - Sepsis, unspecified organism Status: Acute Assessment and Plan: Patient was discharged on 03/25 after a prolonged hospital course. Last abx was meropenem at 03/24 2100. Patient discharged 03/25 Patient returns 03/26 for abd pain and found to have sepsis with tachycardia, lactic acidosis, HoTN, leukocytosis, hypoglycemia WBC 28.8K. CRP 12.6. PCT 1.0. Appropriate fluid resuscitation given. UA consistent with UTI. Old UCx showed rao-sensitive EColi CT A/P with contrast: pulmonary edema, esophagitis/gastritis, splenomegaly, pancreatic mass, moderate ascites. Concern for UTI and/or peritonitis. Started on Zosyn (03/26 at 1700) and Vanco after appropriate cultures obtained. Zosyn changed to Rocephin on 03/27. WBC better. HoTN currently and fluid bolus started. Cultures pending. Followup on results. Hold paracentesis until more stable (2) Atrial fibrillation with rapid ventricular response: Code(s): I48.91 - Unspecified atrial fibrillation Status: Acute Assessment and Plan: Patient complained of severe chills and was noted to be tachycardic on telemetry monitoring. Tele showing sinus tachycardia felt related to sepsis. EKGs also showing normal sinus mechanism. Not felt patient had documented AFib. AFib ruled out Diltiazem IV once given and drip ordered but not given. HoTN felt related to sepsis and Diltiazem. Stop diltiazem drip. Monitor on tele. Check Echo given the pulmonary edema (3) Abnormal finding on urinalysis: Code(s): R82.90 - Unspecified abnormal findings in urine Status: Acute Assessment and Plan: See above Urology consulted. (4) Metastatic disease: Code(s): C79.9 - Secondary malignant neoplasm of unspecified site Status: Acute Assessment and Plan: Patient with abdominal mass originally seen by imaging 01/21/24: There is a heterogeneous enhancing lobulated mass centered in the relative sae hepatis region, extending from the superior pancreatic body into the left hepatic lobe. Lesion overall measures approximately 7.3 x 6.2 x 7.7 cm in extent. There is additional inferior extension posterior to the pancreatic head versus local adjacent enlarged lymph nodes. paracentesis 5/17 was negative for malignancy Biopsy performed 03/09 showing carcinoma of unknown primary. Repeat imaging this admission showing worsening splenomegaly and worsening abdominal ascites present. Oncology consulted. (5) Hypercalcemia: Code(s): E83.52 - Hypercalcemia Status: Acute Assessment and Plan: Likely due to metastatic disease. Albumin quite low thus when adjusted calcium is approximately 11.9. Recurrent renal stones likely exacerbated by this hypercalcemia Calcium only mildly elevated, Defer to oncology for further evaluation. (6) Abdominal ascites: Code(s): R18.8 - Other ascites Status: Acute Assessment and Plan: [place] related to abdominal mass. Paracentesis with diagnostic studies ordered. Antibiotics given to cover for potential SBP. (7) Splenomegaly: Code(s): R16.1 - Splenomegaly, not elsewhere classified Status: Acute Assessment and Plan: Likely sequela of metastatic disease (8) Ureteral stent present: Code(s): Z96.0 - Presence of urogenital implants Status: Acute Assessment and Plan: Left ureteral stent remains present with Urology follow-up planned. Urology consulted in light of possible UTI and sepsis Plan Esophagitis - add PPI TCP - not on Lovenox. [place] to be consumptive from sepsis and/or sequestration from splenomegaly. H/o consult Anemia - Hgb was normal early in the last admission but Hgb dropped to 9-10 range and has remained stable. About the same here. Follow. Defer to H/O Hypoglycemia - glucose 50 this morning. Related to NPO status and suspect she is not eating well. Consider also related
[2024-03-27 09:30] LABS: Iron < 10 ug/dL (37-170)
--- NOTE | 2024-03-27 09:35 | WPDURCON ---
Assessment and Plan Assessment and plan (1) Sepsis: Qualifiers: Sepsis type: sepsis due to unspecified organism Sepsis acute organ dysfunction status: with acute organ dysfunction Severe sepsis acute organ dysfunction type: encephalopathy Severe sepsis shock status: with septic shock Qualified Code(s): A41.9 - Sepsis, unspecified organism; R65.21 - Severe sepsis with septic shock; G93.41 - Metabolic encephalopathy Code(s): A41.9 - Sepsis, unspecified organism Status: Acute Assessment and Plan: Septic on presentation with leukocytosis, tachycardia, elevated lactic acid. Possibly related to UTI. Continue empiric antibiotics, IV fluids, management per primary team (2) Left ureteral stone: Code(s): N20.1 - Calculus of ureter Status: Acute Assessment and Plan: Initially found to have 3 mm distal left ureteral stone with mild left hydroureteronephrosis and underwent cystoscopy with bilateral retrograde pyelogram, bilateral ureteral stent insertion, and Carty catheter insertion on 03/08/2024 Hydronephrosis had resolved on follow-up imaging 03/10/2024 Underwent cystoscopy with bilateral stent removal on 03/17/2024 Repeat imaging completed on 03/18/2024 due to increased leukocytosis which demonstrated 2 mm distal left ureter stone with mild left hydro. Underwent cystoscopy, left retrograde pyelogram, left ureteroscopy with stone extraction, and left ureteral stent placement on 03/21/2024 Plan for left ureteral stent removal today, however in setting of suspected UTI, will continue empiric antibiotics while awaiting culture results. Plan for stent removal once able to ensure she is on appropriate antibiotics (3) Hydronephrosis, left: Code(s): N13.30 - Unspecified hydronephrosis Status: Acute Assessment and Plan: Resolved, left ureteral stent in expected position (4) Abnormal urinalysis: Code(s): R82.90 - Unspecified abnormal findings in urine Status: Acute Assessment and Plan: UA abnormal, concerning for infection. Continue empiric antibiotics as above while awaiting final culture results (5) Metastatic disease: Code(s): C79.9 - Secondary malignant neoplasm of unspecified site Status: Acute Assessment and Plan: Metastatic disease with unknown primary source. Plan was for initiation of outpatient chemotherapy. Now with worsening ascites, planning for paracentesis today per primary team and Oncology Urology Consult Note HPI Date Seen: 03/27/24 Requesting Physician: Kerry Winter MD Primary Care Provider: Hao Perry MD Consult Narrative Narrative: Cheyanne Arenas is a 64 year old female well known to our service after recent prolonged admission. She has new onset metastatic disease with unknown primary origin. She was recently admitted on 03/08/2024 for septic shock. She underwent emergent bilateral ureteral stent placement on 03/08/2024 and tolerated this well. She then had bilateral stent removal on 03/17/2024. Repeat imaging shortly thereafter showed persistent distal left ureteral stone, therefore underwent cystoscopy, left retrograde pyelogram, left ureteroscopy with stone extraction and left ureteral stent placement on 03/21/2024. Plan was for left ureteral stent removal today. However, the patient was discharged home on 03/25/2024. Unfortunately, upon arrival home she became very weak and had difficulty getting around. She could not manage her pain at home and therefore presented to the emergency department on 03/26/2024. Upon arrival, she was found to be tachycardic with additional vital signs stable, WBC markedly elevated at 28.8, creatinine 0.5, lactic 2.1, UA abnormal with positive leukocytes and >[address] of the abdomen/pelvis showed bilateral nonobstructing renal stones with left ureteral stent in expected position. Also revealed worsening abdominal ascites and splenomegaly. She was admitted to
[2024-03-27 09:46] LABS: Percent Iron Saturation < 8 % (20-50)
[2024-03-27 09:52] LABS: Glucose Point of Care 97 mg/dl (65-105)
[2024-03-27 10:11] LABS: Folic Acid 1.8 ng/mL (2.76->20)
--- NOTE | 2024-03-27 10:27 | PDONCCN ---
HPI - Date of Consult Date/Time: 03/27/24 18:55 <Hao Perry - 03/27/24 19:01> 03/27/24 10:27 <Dorys Kauffman - 03/27/24 10:27> Requesting Physician: Kerry Winter MD <Hao Perry - 03/27/24 19:01> Kerry Winter MD <Dorys Kauffman - 03/27/24 10:27> Primary Care Provider: Hao Perry MD <Hao Perry - 03/27/24 19:01> Hao Perry MD <Dorys Kauffman - 03/27/24 10:27> - Consult Narrative Reason for consult: Metastatic Cancer <JamariDorsy - 03/27/24 10:27> Narrative: Cheyanne Arenas is a 64 year old female <Hao Perry - 03/27/24 19:01> Cheyanne Arenas is a 64 year old female with a past medical history of metastatic poorly differentiated carcinoma s/p ultrasound biopsy of the left liver mass and lymph node. Paracentesis completed on February 03 showed no malignancy. PET scan February 09 showed large mass in the sae hepatis and pancreas. We have sent second biopsy for [place] tumor origin testing which has come back inconclusive d/t insufficient specimen. She was recently discharged from [facility] have a long hospital stay for septic shock related to urinary tract infection and left pyelitis. She has ureteral stent on the left still in place which removal has been delayed d/t UTI. She was readmitted for worsening abdominal pain, weakness, and AMS. She was found to be in Afib with RVR and started on a Dilt gtt. Patient is A&Ox2 during our discussion today. She reports upper abdominal pain. CT scan shows worsened ascites and splenomegaly. Plan is for paracentesis and was started on antibiotics vancomycin and Rocephin for concern for SBP. Labs notable for WBC 17.3, Hgb 9.7, Hct 32, Plt 125,000. <Dorys Kauffman - 03/27/24 10:45> Review of Systems - Review of Systems unobtainable due to mental status <Dorys Kauffman - 03/27/24 10:36> [facility] Medical History: Medical History (Last Reviewed 03/27/24 @ 02:51 by Shaka Ruiz APRN) Abdominal mass large mass involving the perihepatic lymph node chain and left hepatic lobe, first seen on CT on 01/21/24 <Hao Perry - 03/27/24 19:01> Medical History (Last Reviewed 03/27/24 @ 02:51 by Shaka Ruiz APRN) Abdominal mass large mass involving the perihepatic lymph node chain and left hepatic lobe, first seen on CT on 01/21/24 <Dorys Kauffman - 03/27/24 10:27> Family History: Family History (Last Updated 03/27/24 @ 11:19 by Sonu Slater MD) Other Unknown family medical history <Hao Perry - 03/27/24 19:01> Family History (Last Updated 03/27/24 @ 11:19 by Sonu Slater MD) Other Unknown family medical history <Dorys Kauffman - 03/27/24 12:28> - Social History Social History: Social History (Last Reviewed 03/27/24 @ 02:51 by Shaka Ruiz APRN) Alcohol Use: Alcohol intake: never Substance Use: Substance use: never Others: Spiritual care concerns: No Smoking Status: Smoking status: Never smoker Social Determinants of Health: Do You Feel Safe in your Home?: Yes Has the Lack of Transportation Kept You From Medical Appointments or From Getting Medications?: No Within the Past 12 Months, Were You Worried Whether Your Food Would Run Out Before You Got Money to Buy More?: Never True What is Your Housing Situation Today?: I Have Housing Are You Worried That in the Next 2 Months, You May Not Have Your Own Housing to Live In?: No Do You Have Trouble Paying Your Heating Or Electricity Bill?: No Do You Have Trouble Paying For Medicines?: No Are You Currently Unemployed and Looking for Work?: No Highest Level of Education Completed: Decline to Answer Do You Have Trouble With Childcare or the Care of a Family Member?: No <Hao Perry - 03/27/24 19:01> Social History (Last Reviewed 03/27/24 @ 02:51 by Konstantin
[2024-03-27] MEDS: FOLIC ACID 1 MG/0.2 ML INJ IV PUSH (10:53)
[2024-03-27] MEDS: POTASSIUM CHLORIDE 20 MEQ ER TABLET 40 MEQ PO (10:53)
[2024-03-27] MEDS: PANTOPRAZOLE SODIUM IV 40 MG VIAL IV PUSH ×2 (10:53→20:40)
--- NOTE | 2024-03-27 11:09 | PM.CNCAR ---
Assessment and Plan Assessment and plan (1) Atrial fibrillation with rapid ventricular response: Code(s): I48.91 - Unspecified atrial fibrillation Status: Acute Assessment and Plan: I do not see clear documentation of atrial fibrillation to this point. She is in sinus rhythm at present EKGs do not confirm atrial fibrillation. Regardless, I would not anticoagulate her at this point due to need for biopsies in other upcoming procedures. 2D echocardiogram Doppler is ordered will be reviewed. At this point, she is already hypotensive and would avoid schedule beta-jennifer or calcium channel jennifer. Treat sepsis. Underlying etiology is likely multifactorial including sepsis, electrolyte imbalance, dehydration, underlying illness (2) Metastatic disease: Code(s): C79.9 - Secondary malignant neoplasm of unspecified site Status: Acute Assessment and Plan: Per oncology (3) Hypokalemia: Code(s): E87.6 - Hypokalemia Status: Acute Assessment and Plan: Replace potassium (4) Sepsis: Code(s): A41.9 - Sepsis, unspecified organism Status: Acute Assessment and Plan: On antibiotics (5) Leukocytosis: Code(s): D72.829 - Elevated white blood cell count, unspecified Status: Acute History of Present Illness History of Present Illness Consult date/time: 03/27/24 11:09 Requesting physician: Shaka Ruiz, CLIMATE CHANGE RISK ASSESSOR Consult reason: atrial fibrillation Reason For Visit: Sepsis, Ascites, UTI Narrative: Date of service 03/27/2024 Reason for consultation: Atrial fibrillation, metastatic disease Requesting provider: Shaka Ruiz History: Patient is a 64-year-old female with metastatic poorly differentiated carcinoma s/p ultrasound biopsy of the left liver mass and lymph node. She had a long hospitalization for septic shock related to UTI and left pyelonephritis. She has ureteral stent on the left still in place which removal has been delayed d/t UTI. She presented back to the hospital secondary to abdominal pain weakness and altered mental status. She was thought to be in atrial fibrillation. EKG shows sinus tachycardia with PACs. She was started on diltiazem. She denies any chest pain, shortness of breath, syncope, presyncope, paroxysmal nocturnal dyspnea, orthopnea, palpitations. She does have lower extremity edema which is new for her. She reports upper abdominal pain. CT scan shows worsened ascites and splenomegaly. Plan is for paracentesis and was started on antibiotics vancomycin and Rocephin for concern for SBP. Review of Systems Review of Systems: All systems reviewed & are unremarkable except as noted in HPI and below Constitutional: Constitutional: Reports lethargy Eyes: Eyes: Denies blurry vision ENT: Reports Normal hearing present Cardiovascular: Cardiovascular: Denies chest pain, Reports pedal edema and Reports leg edema Respiratory: Respiratory: Denies dyspnea Gastrointestinal: Gastrointestinal: Reports abdominal pain Genitourinary: Genitourinary: Denies hematuria Musculoskeletal: Musculoskeletal: Denies myalgias Integumentary/Breasts: Skin/Breast: Denies dry skin Neurologic: Denies Abnormal speech present Psychiatric: Psychiatric: Denies anxiety Endocrine: Endocrine: Denies excessive sweating Hematologic/Lymphatic: Hematologic/Lymphatic: Denies easy bleeding Allergic/Immunologic: Allergic/Immunologic: Denies GI upset with certain foods PMFSH Past Medical History Medical History Abdominal mass large mass involving the perihepatic lymph node chain and left hepatic lobe, first seen on CT on 01/21/24 Family History Family History (Updated 03/27/24 @ 11:19 by Sonu Slater MD) Other Unknown family medical history Social History Social History Smoking status: Never smoker Alcohol intak
--- NOTE | 2024-03-27 11:16 | P.PNINF_ITS ---
Pharmacy ID Consult - Stewardship Interventions Type of Interventions: Other Pharmacy ID Note: Subjective Pharmacy was consulted by Lisa Ruiz regarding infectious diseases for Cheyanne Arenas. Cheyanne Arenas is a 64 year old F with concerns regarding potential SBP. Background The patient is currently receiving Ceftriaxone (D1) and Vancomycin (D2). The patient's PMH includes carcinoma and bilateral ureter stents and was recently admitted to [facility]. Plans do include potential chemotherapy to start later this week per provider notes. Additionally, patient finished long course of empiric carbapenem therapy on the previous admission. Current admission also has blood cultures and urine cultures obtained on 03/26 and are currently pending. Patient planned for a paracentesis to assess for SBP and this is likely to occur later today. Previous Microbiology 03/17/24 18:12 Urine [place] Urine Culture - Final 03/17/24 17:08 Blood Blood Culture - Final 03/17/24 17:08 Blood Blood Culture - Final 03/08/24 13:38 Blood Blood Culture - Final 03/08/24 10:58 Urine Clean Catch Urine Culture - Final Laboratory Tests 03/26/24 03/27/24 03/27/24 14:57 03:44 03:50 WBC 28.8 H 17.3 H C-Reactive Protein Procalcitonin 1.0 Influenza B (RT-PCR) Negative RSV (RT-PCR) Negative SARS-CoV-2 RNA (RT-PCR) Negative 03/27/24 08:45 WBC C-Reactive Protein 12.6 H Procalcitonin Influenza B (RT-PCR) RSV (RT-PCR) SARS-CoV-2 RNA (RT-PCR) Assessment/Recommendation/Discussion Spoke briefly with Catrina Ramires (consulting service - hospitalist) regarding this patient. Looking currently at empiric therapy and noting previous complete course of carbapenem reducing likelihood of current symptoms being caused by ESBL-E or Pseudomonas aeruginosa as likely causative pathogens. Potential SBP management by Ceftriaxone and vancomycin for potential MRSA given risk factors and patient WBC has improved on this combination (28.8 --> 17.3). Will continue to follow. Thank you for the interesting consult. Damian Bennett, PharmD Infectious Disease/Antimicrobial Stewardship Pharmacist 03/27/24; 1116 WBC 17.3 K/mm3 (4.5-10.0) H 03/27/24 03:50 Creatinine 0.60 mg/dL (0.7-1.0) L 03/27/24 03:45 Estim Creat Clear Calc 78 ml/min 03/27/24 03:45
[2024-03-27] MEDS: IRON SUCROSE COMPLEX 400 MG, IRON SUCROSE COMPLEX 100 MG in SODIUM CHLORIDE 0.9% IV 250 ML 78.57 MG IVPB (12:05)
[2024-03-27 15:05] LABS: INR 3.4; Prothrombin Time 34.6 Seconds (11.1-14.7)
[2024-03-27 15:06] LABS: Partial Thromboplastin Time 62.5 Seconds (22.3-36.8)
[2024-03-27] MEDS: FERROUS SULFATE 325 MG TABLET DR PO (16:14)
[2024-03-27 16:16] LABS: Glucose Point of Care 94 mg/dl (65-105)
[2024-03-27 18:15] LABS: Glucose Point of Care 92 mg/dl (65-105)
[2024-03-27] MEDS: PHYTONADIONE 5 MG TABLET 10 MG PO (20:41)
[2024-03-28] VITALS (13 sets, daily range): BP systolic 108–121; BP diastolic 59–69; PULSE 66–88; RESP 16–19; TEMP 36.1–36.6; O2SAT 98–100; BMI 34.2
[2024-03-28] MEDS: cefTRIAXone 2 GM/NS 100 ML 2 GM/100 ML BAG IVPB (00:10)
[2024-03-28 02:54] LABS: Basophils Percent Auto 0.3 % (0.2-1.2); Eosinophils Percent Auto 0.1 % (0-4.4); Hematocrit 27.4 % (37.0-47.0); Hemoglobin 8.5 g/dL (12.0-15.0); Immature Granulocyte Absolute 0.11 K/mm3 (0.00-0.031); Immature Granulocyte Percent A 0.9 % (0-0.5); Lymphocytes Absolute Auto 0.88 K/mm3 (0.9-3.2); Lymphocytes Percent Auto 7.5 % (18.3-44.2); Mean Corpuscular Hemoglobin 29.2 pg (26-34); Mean Corpuscular Volume 94.2 fl (80-100); Mean Platelet Volume 9.8 fl (7.4-10.4); Monocytes Absolute Auto 0.4 K/mm3 (0.1-0.6); Monocytes Percent Auto 3.5 % (2.6-8.5); Neutrophils Absolute Auto 10.3 K/mm3 (1.3-6.7); Neutrophils Percent Auto 87.7 % (45.5-73.1); Platelet Count Result 111 k/mm3 (150-375); Red Blood Count 2.91 M/mm3 (4.2-5.4); Red Cell Distribution Width 18.1 % (11.5-14.5); White Blood Count 11.8 K/mm3 (4.5-10.0)
[2024-03-28 03:02] LABS: INR 2.7
[2024-03-28 03:05] LABS: Alanine Aminotransferase 13 U/L (6-35); Albumin Level 2.1 g/dL (3.5-5.1); Alkaline Phosphatase 160 U/L (38-126); Anion Gap 7 mmol/L (4-12); Aspartate Amino Transferase 26 U/L (14-36); Bilirubin,Total 0.5 mg/dL (0.2-1.3); Blood Urea Nitrogen 12 mg/dL (7-17); Calcium 9.8 mg/dL (8.4-10.2); Carbon Dioxide 22 mmol/L (22-30); Chloride 113 mmol/L (98-107); Estimated CRCL calculation 78 ml/min; Estimated Glomerular Filt Rate > 60; Glucose 88 mg/dL (65-110); Magnesium 1.9 mg/dL (1.6-2.3); Potassium 3.1 mmol/L (3.4-5.0); Sodium 142 mmol/L (137-145)
[2024-03-28 03:08] LABS: Estimated CRCL calculation 78 ml/min; Estimated Glomerular Filt Rate > 60
[2024-03-28 03:26] LABS: Vancomycin Trough 26.5 ug/mL (10.0-20.0)
[2024-03-28 03:43] LABS: Procalcitonin 23.3 ng/mL
[2024-03-28] MEDS: HYDROmorphone HCL INJ (*CRX) 1 MG/ML SYR 0.5 MG IV PUSH (06:50)
[2024-03-28] MEDS: SODIUM CHLORIDE 0.9% IV 1,000 ML 125 ML IV CONT (06:52)
[2024-03-28] MEDS: PANTOPRAZOLE SODIUM IV 40 MG VIAL IV PUSH (08:40)
[2024-03-28] MEDS: POTASSIUM CHLORIDE 20 MEQ ER TABLET 40 MEQ PO (08:41)
[2024-03-28] MEDS: PHYTONADIONE 5 MG TABLET 10 MG PO (08:41)
[2024-03-28] MEDS: FERROUS SULFATE 325 MG TABLET DR PO (08:41)
[2024-03-28 08:46] LABS: Vancomycin Trough 20.9 ug/mL (10.0-20.0)
--- NOTE | 2024-03-28 08:52 | WPDUROPN2 ---
Progress Note: A&P Assessment and Plan (1) Sepsis: Qualifiers: Sepsis type: sepsis due to unspecified organism Sepsis acute organ dysfunction status: with acute organ dysfunction Severe sepsis acute organ dysfunction type: encephalopathy Severe sepsis shock status: with septic shock Qualified Code(s): A41.9 - Sepsis, unspecified organism; R65.21 - Severe sepsis with septic shock; G93.41 - Metabolic encephalopathy Code(s): A41.9 - Sepsis, unspecified organism Status: Acute Assessment and Plan: Septic on presentation with leukocytosis, tachycardia, elevated lactic acid. Possibly related to UTI vs SBP. Continue empiric antibiotics, IV fluids, management per primary team. Urine culture pending at this time (2) Left ureteral stone: Code(s): N20.1 - Calculus of ureter Status: Acute Assessment and Plan: Initially found to have 3 mm distal left ureteral stone with mild left hydroureteronephrosis and underwent cystoscopy with bilateral retrograde pyelogram, bilateral ureteral stent insertion, and Carty catheter insertion on 03/08/2024 Hydronephrosis had resolved on follow-up imaging 03/10/2024 Underwent cystoscopy with bilateral stent removal on 03/17/2024 Repeat imaging completed on 03/18/2024 due to increased leukocytosis which demonstrated 2 mm distal left ureter stone with mild left hydro. Underwent cystoscopy, left retrograde pyelogram, left ureteroscopy with stone extraction, and left ureteral stent placement on 03/21/2024 Initially planned for left ureteral stent removal 03/27/2024, however in setting of suspected UTI, will continue empiric antibiotics while awaiting culture results. Plan for stent removal once able to ensure she is on appropriate antibiotics (3) Hydronephrosis, left: Code(s): N13.30 - Unspecified hydronephrosis Status: Acute Assessment and Plan: Resolved, left ureteral stent in expected position (4) Abnormal urinalysis: Code(s): R82.90 - Unspecified abnormal findings in urine Status: Acute Assessment and Plan: UA abnormal, concerning for infection. Continue empiric antibiotics as above while awaiting final culture results (5) Metastatic disease: Code(s): C79.9 - Secondary malignant neoplasm of unspecified site Status: Acute Assessment and Plan: Metastatic disease with unknown primary source. Plan was for initiation of outpatient chemotherapy. Now with worsening ascites, underwent paracentesis on 03/27/2024 per primary team and Oncology. Possible consideration of transfer to tertiary care facility to initiate inpatient chemotherapy Subjective Subjective Date/Time Seen: 03/28/24 08:52 Interval history: Doing fair today. Complains of diffuse abdominal pain. No issues with Carty catheter. Tolerating diet. No nausea, vomiting, fever, or chills. Review of Systems Review of Systems: All systems reviewed & are unremarkable except as noted in HPI and below Exam Narrative: General: Awake, alert, comfortable, no acute distress HEENT: Normocephalic, atraumatic, sclerae anicteric Respiratory: Normal respiratory effort, no accessory muscle use Abdomen: Nondistended, soft, nontender : Carty catheter draining clear yellow urine Skin: Normal coloration, warm and dry Neurologic: No focal neuro deficits noted Psychiatric: Appropriate mood and affect, judgment and insight intact Objective Data Vital Signs Vital Signs: Vital Signs - 24 hr 03/27/24 09:32 03/27/24 11:21 03/27/24 12:00 Temperature 96.5 F L Pulse Rate 84 Respiratory Rate 20 Blood Pressure 93/56 L 97/56 L Pulse Oximetry 98 Oxygen Delivery Room Air 03/27/24 10:00 03/27/24 12:00 03/27/24 14:00 Temperature Pulse Rate 88 84 84 Respiratory Rate Blood Pressure Pulse Oximetry Oxygen Delivery 03/27/24 16:00 03/27/24 16:00 03/27/24 16:00 Temperature 96.8 F L Pulse Rate 73 71
[2024-03-28] MEDS: LIDOCAINE HCL 1% LOCAL INJ 2 ML AMPUL 5 ML INFILTRATE (09:30)
[2024-03-28] MEDS: FOLIC ACID 1 MG/0.2 ML INJ IV PUSH (09:57)
[2024-03-28] MEDS: VANCOMYCIN 1,250 MG/NS 250 ML 1,250 MG/250 ML BAG 166.67 MG IVPB (10:46)
--- NOTE | 2024-03-28 11:25 | PM.IMPN ---
Progress Note: A&P Assessment and Plan (1) Sepsis: Code(s): A41.9 - Sepsis, unspecified organism Status: Acute Assessment and Plan: Patient was discharged on 03/25 after a prolonged hospital course. Last abx was meropenem at 03/24 2100. Patient discharged 03/25 Patient returns 03/26 for abd pain and found to have sepsis with tachycardia, lactic acidosis, HoTN, leukocytosis, hypoglycemia WBC 28.8K. CRP 12.6. PCT 1.0. Appropriate fluid resuscitation given. UA consistent with UTI. Old UCx showed rao-sensitive EColi CT A/P with contrast: pulmonary edema, esophagitis/gastritis, splenomegaly, pancreatic mass, moderate ascites. Concern for UTI and/or peritonitis. Started on Zosyn (03/26 at 1700) and Vanco after appropriate cultures obtained. Zosyn changed to Rocephin on 03/27. WBC better. BP stable now. BCx NGTD. UCx pending. No paracentesis yesterday due to elevated INR. Treated with VitK with benefit. Able to get paracentesis today showing only 420 WBCs with 75% neutrophils. Cx sent Continue current IV abx. Fluid positive at 4.7L so will decrease IV fluids and stop if BP remains stable. (2) Atrial fibrillation with rapid ventricular response: Code(s): I48.91 - Unspecified atrial fibrillation Status: Acute Assessment and Plan: Patient complained of severe chills and was noted to be tachycardic on telemetry monitoring. Tele showing sinus tachycardia felt related to sepsis. EKGs also showing normal sinus mechanism. Not felt patient had documented AFib. AFib ruled out Diltiazem IV once given and drip ordered but not given. HoTN felt related to sepsis and Diltiazem. Echo showing EF 65-70%, Grade I diastolic dysfunction, HK basal and mid inferolateral mullins Monitor on tele. (3) Abnormal finding on urinalysis: Code(s): R82.90 - Unspecified abnormal findings in urine Status: Acute Assessment and Plan: As above Urology consulted. (4) Metastatic disease: Code(s): C79.9 - Secondary malignant neoplasm of unspecified site Status: Acute Assessment and Plan: Patient with abdominal mass originally seen by imaging 01/21/24: There is a heterogeneous enhancing lobulated mass centered in the relative sae hepatis region, extending from the superior pancreatic body into the left hepatic lobe. Lesion overall measures approximately 7.3 x 6.2 x 7.7 cm in extent. There is additional inferior extension posterior to the pancreatic head versus local adjacent enlarged lymph nodes. Paracentesis 02/03 was negative for malignancy Biopsy performed 03/09 showing carcinoma of unknown primary. Repeat imaging this admission showing worsening splenomegaly and worsening abdominal ascites present. Oncology consulted and discussed. They recommended patient be transferred to [facility] for further evaluation and treatment Transfer line called and (5) Hypercalcemia: Code(s): E83.52 - Hypercalcemia Status: Acute Assessment and Plan: Calcium only mildly elevated. Likely due to metastatic disease. Calcium normal now after IV fluid resuscitation Follow (6) Abdominal ascites: Code(s): R18.8 - Other ascites Status: Acute Assessment and Plan: Durant related to abdominal mass. Paracentesis with diagnostic studies ordered. Antibiotics given to cover for potential SBP. (7) Splenomegaly: Code(s): R16.1 - Splenomegaly, not elsewhere classified Status: Acute Assessment and Plan: Likely sequela of metastatic disease (8) Ureteral stent present: Code(s): Z96.0 - Presence of urogenital implants Status: Acute Assessment and Plan: Left ureteral stent remains present with Urology follow-up planned. Urology consulted in light of possible UTI and sepsis Plan Esophagitis - continue PPI TCP - not on Lovenox. Durant to be consumptive from sepsis and/or sequestration from splenomegaly. H/o following Anemia - Hgb was normal ea
[2024-03-28 11:34] LABS: Appearance Peritoneal Fluid Clear (Clear); Source Peritoneal Fluid Peritoneal Fluid
[2024-03-28 11:35] LABS: Color Peritoneal Fluid Yellow (Colorless); Lymphocytes Peritoneal Fluid 6 %; Macrophages Peritoneal Fluid 9 %; Monocytes Peritoneal Fluid 10 %; Neutrophils Peritoneal Fluid 75 % (0-25); Nucleated Cells Peritoneal Flu 419 /uL (0-500)
[2024-03-28] MEDS: MAGNESIUM SULF 2 GM/WATER 50ML 2 GM/50 ML BAG IVPB (12:17)
[2024-03-28] MEDS: POTASSIUM CHLORIDE 20 MEQ ER TABLET PO (12:18)
--- NOTE | 2024-03-28 13:38 | PCPTNOTE ---
Attempted PT evaluation, pt in too much pain at this time per RN. Will follow.
[2024-03-28] MEDS: IRON SUCROSE COMPLEX 400 MG, IRON SUCROSE COMPLEX 100 MG in SODIUM CHLORIDE 0.9% IV 250 ML 78.57 MG IVPB (14:08)
--- NOTE | 2024-03-28 14:43 | PM.TDS ---
Transfer Discharge Sum: Prov Provider Date of admission: 03/27/24 08:05 Primary care physician: Hao Perry MD Admitting clinician: Kerry Winter MD Consults: 03/27/24 00:14 Consult to Physician Routine Comment: spoke with Dorys Kauffman @0811(ER,US) Consulting Provider: Dorys Kauffman call center recruiter/MD group to consult: Oncology Reason for consultation: metastatic cancer with new ascities and possible SBP Has provider been notified: Yes 03/27/24 02:54 Consult Infectious Disease Pharmacist Routine Comment: 03/27/24 03:03 Consult to Physician Routine Comment: spoke with Anila in the office @0818(ER,US) Consulting Provider: Santosh Clark call center recruiter/MD group to consult: Urology Reason for consultation: Sepsis, left ureteral stent in place Has provider been notified: Yes 03/27/24 04:33 Consult to Physician Routine Comment: spoke with Ally Rios @0817 (ER,US) Consulting Provider: Ally Rios call center recruiter/MD group to consult: Cardiology Reason for consultation: new onset afib RVR, sepsis/metastatic disease Has provider been notified: Yes Receiving physician/facility: [facility] DS: Admitting Diagnosis Discharge Date 03/28/24 Admitting Diagnosis Abdominal pain DS: Discharge Diagnosis Discharge Diagnosis (1) Sepsis: Code(s): A41.9 - Sepsis, unspecified organism Status: Acute (2) Atrial fibrillation with rapid ventricular response: Code(s): I48.91 - Unspecified atrial fibrillation Status: Acute (3) Abnormal finding on urinalysis: Code(s): R82.90 - Unspecified abnormal findings in urine Status: Acute (4) Metastatic disease: Code(s): C79.9 - Secondary malignant neoplasm of unspecified site Status: Acute (5) Hypercalcemia: Code(s): E83.52 - Hypercalcemia Status: Acute (6) Abdominal ascites: Code(s): R18.8 - Other ascites Status: Acute (7) Splenomegaly: Code(s): R16.1 - Splenomegaly, not elsewhere classified Status: Acute (8) Ureteral stent present: Code(s): Z96.0 - Presence of urogenital implants Status: Acute Transfer Discharge Sum: Med Medications Active and Home Medications: Home Medications acetaminophen 160 mg/5 mL oral suspension (Nortemp) 650 mg (20.3125 mL) PO Q4H PRN Mild Pain (1-3) Or Fever #60 mL 03/25/24 [Rx Confirmed 03/27/24] ferrous sulfate 325 mg (65 mg iron) tablet,delayed release 325 mg PO BID #60 tabs 03/25/24 [Rx Confirmed 03/27/24] folic acid 400 mcg tablet 0.4 mg PO DAILY #30 tabs 03/25/24 [Rx Confirmed 03/27/24] polyethylene glycol 3350 17 gram oral powder packet (Miralax) 17 g PO BID PRN Constipation #30 ea 03/25/24 [Rx Confirmed 03/27/24] tamsulosin 0.4 mg capsule 0.4 mg PO QAM #30 caps 03/25/24 [Rx Confirmed 03/27/24] Active Medications Acetaminophen (Acetaminophen 325 Mg Tablet) 650 mg PO Q4H PRN PRN Reason: Mild Pain (1-3) or Fever Last Admin: 03/27/24 20:48 Dose: 650 mg Dextrose (Dextrose 50% 25 Gm/50 Ml Syringe) 12.5 gm IV PUSH PRN PRN; Protocol PRN Reason: Hypoglycemia Last Admin: 03/27/24 05:06 Dose: 12.5 gm Ferrous Sulfate (Ferrous Sulfate [address]) 325 mg PO BID [facility] Last Admin: 03/28/24 08:41 Dose: 325 mg Folic Acid (Folic Acid 1 Mg/0.2 Ml Inj) 1 mg IV PUSH QAM [facility] Last Admin: 03/28/24 09:57 Dose: 1 mg Glucagon (Glucagon For Inj 1 Mg Vial) 1 mg IM PRN PRN; Protocol PRN Reason: Hypoglycemia Glucose (Glucose Oral Gel 15 Gm Of Glucse In 37.5 Gm Tube) 15 gm PO PRN PRN; Protocol PRN Reason: Hypoglycemia Hydromorphone HCl (Hydromorphone Hcl Inj (*Crx) 1 Mg/Ml Syr) 0.5 mg IV PUSH Q4H PRN PRN Reason: Pain Rated 7-10 Last Admin: 03/27/24 01:06 Dose: 0.5 mg Sodium Chloride (Normal Saline Iv) 1,000 mls @ 60 mls/hr IV CONT .[id number] [facility] Last Infusion: 03/28/24 12:24 Dose: 60 mls/hr Ceftriaxone Sodium (Rocephin 2 Gm/Ns 100 Ml) 2 gm in 100 mls @ 200 mls/hr IVPB Q24H [facility] Last Infusion: 03/28/24 00:4
[2024-03-28] MEDS: HEPARIN SODIUM LOCK FLUSH 500 UNITS/5 ML SYRINGE IV PUSH (14:51)
[2024-03-28] MEDS: SALINE LOCK FLUSH 10 ML IV PUSH (14:52)
--- NOTE | 2024-03-28 15:14 | PC.NURSE ---
Orders to transfer to [facility] - report called to Kathie Matt RN- - ambulance called for transfer
--- NOTE | 2024-03-28 16:51 | PC.NURSE ---
[facility] arrived to transport pt to [facility]- report given to ambulance service-family in room- called [facility] and informed of pt departure and informed of new results received from sergey barba [employer]
[2024-03-30 13:19] LABS: RBC Peritoneal Fluid < 2000 /uL (0-10000)
[2024-04-02 15:04] LABS: Albumin Peritoneal Fluid 0.6 g/dL; Amylase Peritoneal Fluid <10 U/L; Glucose Peritoneal Fluid 110 mg/dL; Total Protein Peritoneal Fluid <3.0 g/dL
--- NOTE | 2024-04-03 08:01 | PC.NURSE ---
Blood cx are negative. Peritoneal cx is negative. Dr. Iek pepe.
[2024-04-05 19:53] LABS: LDH Peritoneal Fluid 37 U/L (<63)
== END 2024-03-28 16:50 | disposition short-term general hospital (02) | DRG 871 ==
LOC: ANHED 17:45 → ANH3MEDSUR 18:19 → ANHIMU 03-27 02:56
PROVIDERS: Nurse Practitioner; Nurse Practitioner Family; Student in an Organized Health Care Education/Training Program; Admitting Provider Family Medicine; Emergency Provider Physician Assistant; PCP Internal Medicine Hematology & Oncology; Visit Provider Internal Medicine
DX: A41.9 Sepsis, unspecified organism (principal); G93.41 Metabolic encephalopathy; N13.6 Pyonephrosis; C79.9 Secondary malignant neoplasm of unspecified site; R18.8 Other ascites; E46 Unspecified protein-calorie malnutrition; I82.451 Acute embolism and thrombosis of right peroneal vein; D68.9 Coagulation defect, unspecified; E87.6 Hypokalemia; R16.1 Splenomegaly, not elsewhere classified; D69.6 Thrombocytopenia, unspecified; E83.52 Hypercalcemia; Z96.0 Presence of urogenital implants; E16.2 Hypoglycemia, unspecified; D63.8 Anemia in other chronic diseases classified elsewhere; Z68.32 Body mass index [BMI] 32.0-32.9, adult
CPT/HCPCS: 36415; 36569; 49083; 74177; 80053; 80202; 81001; 82040; 82042; 82150; 82550; 82565; 82607; 82728; 82746; 82945; 82948; 83540; 83550; 83605; 83615; 83735; 84145; 84157; 84484; 85025; 85610; 85652; 85730; 86140; 87040; 87070; 87075; 87086; 87088; 87106; 87205; 87637; 88108; 88305; 89051; 93005; 93306; 93970; 96361; 96365; 96366; 96375; 96376; 99285; A9270; G0378; J0696; J1170; J1756; J2405; J2470; J2543; J3370; J3475; J7030; J7040; J7050; P9047; Q9967